=== PATIENT | male | born 1960 | race Caucasian/White ===

== ENCOUNTER 2020-02-24 08:26 | Outpatient (REF) | payer OTHER, SELFPAY | END 2020-02-24 08:27 | disposition home or self-care (01) | LOC: HO.LAB 08:26 | PROVIDERS: PCP Internal Medicine; Visit Provider Internal Medicine | DX: Z20.828 Contact with and (suspected) exposure to other viral communicable diseases (principal) | CPT/HCPCS: C9803; U0003 ==

== ENCOUNTER 2022-06-16 08:19 | Outpatient (REF) | payer OTHER, SELFPAY ==
--- NOTE | ~2022-06-16 | XR_ITS ---
EXAMINATION: XR KNEE, LEFT XR SHOULDER, RIGHT CLINICAL INDICATIONS: Pain. COMPARISON: None available. TECHNIQUE: Left knee 2 views. Right shoulder 4 views. FINDINGS: Left Knee: The tricompartment joint space is maintained normal. No bony erosive changes, loose bodies seen. There is mild anterior suprapatella enthesophyte. Right Shoulder: There is a small calcification at the insertion of the right rotator cuff likely calcific tendinitis. The glenohumeral joint space is maintained normal. There is mild reduction right AC joint space with inferior spurring. No visible acute fracture or dislocation seen. XR/XR knee LT 2V IMPRESSION: 1. Mild anterior-superior patellar enthesophyte. Otherwise, no acute process seen in left knee. 2. Suspect rotator cuff tendinitis with mild degenerative changes right AC joint. No acute fracture or dislocation seen.
--- NOTE | ~2022-06-16 | XR_ITS ---
EXAMINATION: XR KNEE, LEFT XR SHOULDER, RIGHT CLINICAL INDICATIONS: Pain. COMPARISON: None available. TECHNIQUE: Left knee 2 views. Right shoulder 4 views. FINDINGS: Left Knee: The tricompartment joint space is maintained normal. No bony erosive changes, loose bodies seen. There is mild anterior suprapatella enthesophyte. Right Shoulder: There is a small calcification at the insertion of the right rotator cuff likely calcific tendinitis. The glenohumeral joint space is maintained normal. There is mild reduction right AC joint space with inferior spurring. No visible acute fracture or dislocation seen. XR/XR shoulder RT min 2V IMPRESSION: 1. Mild anterior-superior patellar enthesophyte. Otherwise, no acute process seen in left knee. 2. Suspect rotator cuff tendinitis with mild degenerative changes right AC joint. No acute fracture or dislocation seen.
[2022-06-16 11:33] LABS: MANUAL DIFF FLAG NO
[2022-06-16 11:50] LABS: Basophils Percent Auto 0.8 % (0-2); Eosinophils Absolute Auto 0.1 X10*3/uL (0.0-0.4); Eosinophils Percent Auto 3.4 % (0-4); Hematocrit 41.7 % (42.0-52.0); Hemoglobin 13.9 g/dl (14.0-18.0); Lymphocytes Absolute Auto 1.4 X10*3/uL (1.2-4.9); Mean Corpuscular HGB Conc 33.3 g/dl (31.0-36.0); Mean Corpuscular Hemoglobin 31.7 pg (27.0-33.0); Monocytes Absolute Auto 0.4 X10*3/uL (0.1-1.2); Monocytes Percent Auto 10.3 % (2-11); Neutrophils Absolute Auto 1.9 x10*3/uL (2.0-8.3); Neutrophils Percent Auto 48.5 % (45-73); Platelet Count 163 X10*3/uL (160-400); Red Blood Count 4.39 X10*6/uL (4.60-5.80); Red Cell Distribution Width 12.9 % (11.0-16.0); White Blood Count 3.9 X10*3/uL (4.8-10.8)
[2022-06-16 11:55] LABS: Appearance Urine Clear; Color Urine Yellow; Glucose Urine UA Negative (Negative); Leukocyte Esterase Urine Negative (Negative); Nitrite Urine Negative (Negative); PH 6.5 (5.0-9.0); Specific Gravity - Urine 1.015 (1.005-1.025); Urine Blood Negative (Negative); Urine Ketones Negative (Negative); Urine Protein Negative (Neg-Trace)
[2022-06-16 12:12] LABS: Alanine Aminotransferase 24 U/L (0-40); Albumin Level 4.2 g/dL (3.5-5.0); Alkaline Phosphatase 56 U/L (39-117); Anion Gap 11 (12-20); Aspartate Amino Transferase 29 U/L (5-37); Bilirubin Total 0.7 mg/dL (0.0-1.0); Blood Urea Nitrogen 14 mg/dL (9-16); Calcium 9.3 mg/dL (8.4-10.2); Carbon Dioxide 29 mmol/L (22-29); Chloride 105 mmol/L (96-108); Cholesterol 299 mg/dL; Estimated Glomerular Filt Rate > 60; Glucose Fasting 102 mg/dL (60-99); HDL Cholesterol 64 mg/dL; LDL Cholesterol Calculated 208 mg/dl; Potassium 4.3 mmol/L (3.3-5.1); Sodium 141 mmol/L (135-145); Total Protein 7.1 g/dL (6.5-8.0); Triglycerides 137 mg/dL
[2022-06-16 12:29] LABS: Prostate Specific Antigen Scr 0.62 ng/mL (<0.05-4.0); TSH reflex Free T4 1.32 uIU/mL (0.32-4.0)
== END 2022-06-16 08:20 | disposition home or self-care (01) ==
LOC: HO.HMGCX 08:19
PROVIDERS: PCP Nurse Practitioner Family; Visit Provider Nurse Practitioner Family
DX: Z00.00 Encounter for general adult medical examination without abnormal findings (principal); D64.9 Anemia, unspecified; M25.511 Pain in right shoulder; M25.562 Pain in left knee; Z12.5 Encounter for screening for malignant neoplasm of prostate; E78.5 Hyperlipidemia, unspecified
CPT/HCPCS: 36415; 73030; 73560; 80053; 80061; 81003; 84153; 84443; 85025

== ENCOUNTER 2022-08-04 07:05 | Outpatient (REF) | payer OTHER, SELFPAY ==
[2022-08-04 11:12] LABS: MANUAL DIFF FLAG NO
[2022-08-04 11:33] LABS: Basophils Percent Auto 0.7 % (0-2); Eosinophils Absolute Auto 0.2 X10*3/uL (0.0-0.4); Eosinophils Percent Auto 3.6 % (0-4); Hematocrit 42.3 % (42.0-52.0); Imm Gran Abs Auto 0.01 X10*3/uL (0.00-0.03); Imm Gran Pct Auto 0.2 % (0.0-0.4); Immature Retic Fraction 9.9 % (2.3-13.4); Lymphocytes Absolute Auto 1.5 X10*3/uL (1.2-4.9); Lymphocytes Percent Auto 37.1 % (20-40); Mean Corpuscular HGB Conc 33.1 g/dl (31.0-36.0); Mean Corpuscular Hemoglobin 31.4 pg (27.0-33.0); Mean Corpuscular Volume 94.8 fL (80.0-98.0); Monocytes Absolute Auto 0.5 X10*3/uL (0.1-1.2); Monocytes Percent Auto 11.2 % (2-11); Neutrophils Absolute Auto 1.9 x10*3/uL (2.0-8.3); Neutrophils Percent Auto 47.2 % (45-73); Platelet Count 169 X10*3/uL (160-400); Red Blood Count 4.46 X10*6/uL (4.60-5.80); Red Cell Distribution Width 12.5 % (11.0-16.0); Retic HGB Equivalent 34.6 pg (30.0-35.0); Reticulocyte Percent 1.2 % (0.5-1.8); Reticulocytes Absolute 0.052 X10*6/uL (0.026-0.095); White Blood Count 4.1 X10*3/uL (4.8-10.8)
[2022-08-04 11:44] LABS: Alanine Aminotransferase 26 U/L (0-40); Albumin Level 4.4 g/dL (3.5-5.0); Alkaline Phosphatase 58 U/L (39-117); Anion Gap 12 (12-20); Aspartate Amino Transferase 29 U/L (5-37); Bilirubin Total 0.8 mg/dL (0.0-1.0); Blood Urea Nitrogen 16 mg/dL (9-16); Calcium 9.7 mg/dL (8.4-10.2); Carbon Dioxide 29 mmol/L (22-29); Chloride 104 mmol/L (96-108); Cholesterol 253 mg/dL; Estimated Glomerular Filt Rate > 60; Glucose Fasting 101 mg/dL (60-99); HDL Cholesterol 56 mg/dL; Iron 123 mcg/dL (45-160); LDL Cholesterol Calculated 173 mg/dl; Percent Iron Saturation 41 % (15-50); Potassium 4.1 mmol/L (3.3-5.1); Sodium 141 mmol/L (135-145); Total Iron Binding Capacity 303 mcg/dL (228-428); Total Protein 7.4 g/dL (6.5-8.0); Triglycerides 124 mg/dL; Unsaturated Iron Binding 180 ug/dL
[2022-08-04 12:13] LABS: Ferritin 200 ng/mL (20-250); Folate 11.3 ng/mL (> or = 4.0); Vitamin B12 656 pg/mL (200-900)
[2022-08-04 12:58] LABS: FIT Int Ctl YES; FIT1 NEGATIVE (NEGATIVE); FIT2 NEGATIVE (NEGATIVE)
[2022-08-10 18:39] LABS: Lyme Abs Screen <0.90 index
== END 2022-08-04 07:06 | disposition home or self-care (01) ==
LOC: HO.HMGCLDS 07:05
PROVIDERS: PCP Nurse Practitioner Family; Visit Provider Nurse Practitioner Family
DX: E78.5 Hyperlipidemia, unspecified (principal); D64.9 Anemia, unspecified
CPT/HCPCS: 36415; 80053; 80061; 82274; 82607; 82728; 82746; 83540; 85025; 85045; 86617; 86618

== ENCOUNTER 2022-09-22 13:53 | Outpatient (AMB) | payer OTHER, SELFPAY ==
[2022-09-22 14:03] VITALS: BP 154/90; PULSE 75; BMI 26.0
--- NOTE | 2022-09-22 14:03 | A.OFFVIS_ITS ---
Intake Vital Signs 09/22/22 14:03 09/22/22 14:32 Height 6 ft 4 in Weight 213 lb 13.574 oz BMI 26.0 BP 154/90 H 138/81 Blood Pressure Location Lt brachial Lt brachial Position Sitting Pulse 75 71 Intake Visit Reasons: Colonoscopy Screening Intake Note: Antelmo presents in the office as a new patient colonoscopy screening. CC: Clinical Academic Allergist Required: No Allergies meperidine [From DEMEROL] Allergy (Unknown, Unverified 09/22/22 14:03) VOMITING Reidiem-IDP-DmR Reductase Inhibitor Adverse Reaction (Intermediate, Verified 09/22/22 14:04) Muscle Pain SEASONAL ALLERGIES Allergy (Unknown, Uncoded 09/22/22 14:03) RUNNY NOSE/ITCHY EYES Medication List - Last Reconciled 09/22/22 by Chio Ignacio PA-C ezetimibe 10 mg PO DAILY losartan 50 mg PO DAILY rosuvastatin 5 mg PO .twice a week 30 days HPI HPI Comments History of Present Illness Details A 62 y/o male referred for screening colonoscopy- normal colonoscopy 10 years ago at [facility] Healthy, retired, stays active Appetite is good Bowels are normal No cardiac or respiratory issies No N/V/ D reflux, fever or chills PFSH Surgical History Hx of colonoscopy Social History Housing: House Patient Tobacco Use Status: Former Tobacco user Quit Date: 20 years ago Tobacco use type: Cigarette e-Cigarette/Vaping Use: Never Used Second Hand Smoke Exposure: No service: No Current occupational status: retired Cognitive needs: No Hearing needs: No Vision needs: No Review of Systems Const All systems reviewed & are unremarkable except as noted in HPI and below Card Denies chest pain and Denies dyspnea Resp Denies dyspnea GI Denies abdominal pain, Denies change in bowel habits, Denies heartburn, Denies diarrhea, Denies nausea and Denies vomiting Physical Exam Vital Signs: Last Vital Signs Pulse 71 09/22/22 14:32 BP 138/81 09/22/22 14:32 BMI result Body Mass Index 26.0 Const General: cooperative, healthy appearing, comfortable and no acute distress Resp Effort & Inspection: normal respiratory effort and able to speak in complete sentences Auscultation: clear to auscultation bilaterally, no rales, no rhonchi and no wheezes Cardio Rate: regular rate Rhythm: regular rhythm Heart sounds: S1 normal heart sound present and S2 normal heart sound present GI Palpation (GI): Soft to palpation and nontender Percussion: Yes normal to percussion Skin General skin exam: no rashes or lesions noted Extrem General: Yes full ROM Psych Appearance: grossly normal and well kempt Mental Status: mental status grossly normal Speech and movement: Normal speech and movement present and Clear speech present Affect: normal affect and Labile affect present Attitude: cooperative Thought process: Normal thought process present Thought content: Normal thought content present Insight: Good insight present (Psych) Judgement: Good judgement present (Psych) Assessment & Plan Assessment & Plan (1) Screening for colon cancer: Code(s): Z12.11 - Encounter for screening for malignant neoplasm of colon Plan Screening colonoscopy- MG prep Orders: Orders Colonoscopy - GI Use Only 09/22/22 Z12.11 - Encounter for screening for malignant neoplasm of colon Medications: New bisacodyl (Dulcolax (bisacodyl)) Take 4 tablets by mouth at 12:00pm the day before your procedure. 20 mg (4 x 5 mg) PO ONCE 1 day 4 tabs 0RF colonoscopy prep Z12.11 - Encounter for screening for malignant neoplasm of colon polyethylene glycol 3350 (Miralax) Take as directed by mouth the day before your procedure. 238 grams PO ONCE 1 day PRN 238 grams 0RF laxative effect Patient Instructions: Pleasant healthy 62 y/o male- due for screening colonoscopy Discussed procedure, rare risk ,need for escort due to anesthesia MiraLax Gatorade split prep literature given Encouraged to call questions or concerns Appreciate the opportunity cyst in the care of the PEG Coding Level of Care Code New Pt Level 3 (34627) Diagnoses Screening for colon cancer Z12.11 Time Spent (min) 30
[2022-09-22 14:32] VITALS: BP 138/81; PULSE 71
== END 2022-09-22 14:29 | disposition home or self-care (01) ==
PROVIDERS: PCP Nurse Practitioner Family; Visit Provider Physician Assistant
DX: Z01.818 Encounter for other preprocedural examination (principal); Z12.11 Encounter for screening for malignant neoplasm of colon
CPT/HCPCS: 99203

== ENCOUNTER → 2022-09-22 13:53 | Outpatient (BNVA) | payer OTHER, SELFPAY | PROVIDERS: PCP Nurse Practitioner Family; Visit Provider Physician Assistant ==

== ENCOUNTER 2022-10-12 07:58 | Outpatient (REF) | payer OTHER, SELFPAY ==
[2022-10-12 12:05] LABS: Alanine Aminotransferase 24 U/L (0-40); Albumin Level 4.4 g/dL (3.5-5.0); Alkaline Phosphatase 58 U/L (39-117); Anion Gap 14 (12-20); Aspartate Amino Transferase 30 U/L (5-37); Bilirubin Total 0.8 mg/dL (0.0-1.0); Blood Urea Nitrogen 18 mg/dL (9-16); Calcium 10.1 mg/dL (8.4-10.2); Carbon Dioxide 25 mmol/L (22-29); Chloride 105 mmol/L (96-108); Cholesterol 241 mg/dL; Estimated Glomerular Filt Rate > 60; Glucose Fasting 97 mg/dL (60-99); HDL Cholesterol 70 mg/dL; LDL Cholesterol Calculated 148 mg/dl; Potassium 4.1 mmol/L (3.3-5.1); Sodium 140 mmol/L (135-145); Total Protein 7.8 g/dL (6.5-8.0); Triglycerides 117 mg/dL
== END 2022-10-12 07:59 | disposition home or self-care (01) ==
LOC: HO.WFDLDS 07:58
PROVIDERS: Visit Provider Nurse Practitioner Family
DX: E78.5 Hyperlipidemia, unspecified (principal)
CPT/HCPCS: 36415; 80053; 80061

== ENCOUNTER 2022-10-17 09:52 | Outpatient (AMB) | payer OTHER, SELFPAY ==
[2022-10-17 09:56] VITALS: BP 142/88; PULSE 75; O2SAT 96; BMI 26.6
--- NOTE | 2022-10-17 09:56 | MHC.PC.OV ---
Vital Signs 10/17/22 09:56 Height 6 ft 4 in Weight 218 lb 4 oz BMI 26.6 BP 142/88 H Blood Pressure Location Rt brachial Position Sitting Pulse 75 Pulse Source Pulse Oximeter Pulse Oximetry (%) 96 Oxygen Delivery Method Room Air Intake Visit Reasons: Follow up on labs Allergies meperidine [From DEMEROL] Allergy (Unknown, Unverified 10/17/22 09:59) VOMITING Oqrzgfk-BUD-FoS Reductase Inhibitor Adverse Reaction (Intermediate, Verified 10/17/22 09:59) Muscle Pain SEASONAL ALLERGIES Allergy (Unknown, Uncoded 10/17/22 09:59) RUNNY NOSE/ITCHY EYES Medication List - Last Reconciled 10/17/22 by DIONNE Vicente- bisacodyl (Dulcolax (bisacodyl)) 20 mg (4 x 5 mg) PO ONCE 1 day ezetimibe 10 mg PO DAILY losartan 100 mg PO DAILY polyethylene glycol 3350 (Miralax) 238 grams PO ONCE PRN 1 day prazosin 1 mg PO BEDTIME rosuvastatin 5 mg PO .twice a week 30 days Tobacco use date assessed: 10/17/22 Dental Screening Dental Screen Date: 10/17/22 Did you have a dental visit in the last 12 months?: Yes Did you have a dental problem in the last 6 months where you did not have access to dental care?: No Was dental information given to patient?: Patient has dentist HPI Follow up on labs HPI Details HTN: Blood pressure is managed with losartan 50mg. Will increase to 100mg. Denies chest pain, shortness of breath, headache, dizziness, and blurred vision. Pt c/o bilat hand pain especially to base of thumbs. He reports pain with activity such as fishing or playing guitar. Will order xr's (? arthritis). Dyslipidemia: On rosuvastatin 5mg twice a week. Will have pt increase this to three times a week. Pt c/o insomnia. He has tried trazodone in the past which causes weird dreams. Will send prazosin 1mg. PFSH Surgical History Hx of colonoscopy Social History Housing: House Patient Tobacco Use Status: Former Tobacco user Quit Date: 20 years ago Tobacco use type: Cigarette e-Cigarette/Vaping Use: Never Used Second Hand Smoke Exposure: No service: No Current occupational status: retired Cognitive needs: No Hearing needs: No Vision needs: No Questionnaire Thrive Questionnaire Date Thrive assessed: 06/13/22 SALAS-7 AMB Questionnaire SALAS-7 Date SALAS - 7 assessed: 06/13/22 Source: Developed by Drs. Henrik Catherine, Tami Davies, Vimal Conti and colleagues, with an educational denny from [employer]. Review of Systems Const Reports as per HPI Physical exam (Primary Care) Vital Signs: Last Vital Signs Pulse 75 10/17/22 09:56 BP 142/88 H 10/17/22 09:56 Pulse Ox 96 10/17/22 09:56 Oxygen Delivery Method Room Air 10/17/22 09:56 BMI result Body Mass Index 26.6 Tobacco/Smoking Status: Tobacco use Status Tobacco use date assessed 10/17/22 10/17/22 10:01 Patient Tobacco Use Status Former Tobacco user 10/17/22 09:56 Tobacco use type Cigarette 10/17/22 09:56 e-Cigarette/Vaping Use Never Used 10/17/22 09:56 Thrive Assessment: Date of Thrive Assessment Date Thrive assessed 06/13/22 10/17/22 09:56 Const General: cooperative Orientation/consciousness: patient oriented x3 Resp Effort & Inspection: normal respiratory effort Auscultation: clear to auscultation bilaterally Cardio Rate: regular rate Rhythm: regular rhythm Heart sounds: S1 normal heart sound present and S2 normal heart sound present Neuro General: patient oriented x3 Extrem Other: able to flex and extend bilat thumbs with minimal discomfort to base of thumbs Psych Appearance: grossly normal Mental Status: mental status grossly normal Speech and movement: Normal speech and movement present Affect: normal affect Attitude: cooperative Thought process: Normal thought process present Thought content: Normal thought content present Insight: Good insight present (Psych) Judgement: Good judgement present (Psych) Assessment and Plan Assessment & Plan (1) Bilateral thumb pain: Code(s): M79.644 - Pain in right finger(s); M79.645 - Pain in left finger(s) Plan: XRs ordered (2) Dyslipidemia: Code(s): E78.5 - Hyperlipidemia, unspecified Plan: Labs ordered going up to three times a week statin use from twice a week (3) Insomnia: Code(s): G47.00 - Insomnia, unspecified (4) HTN (hypertension): Code(s): I10 - Essential (primary) hypertension Plan The patient agreed to the use of a medical detail representative for this encounter. Scribed for DIONNE Cid- by Claritza Durbin medical detail representative, on 10/17/2022 at 10:20 EST. Orders: Orders Complete Blood Count Auto Diff Today E78.5 - Hyperlipidemia, unspecified Comprehensive [place]. Panel Fast Today E78.5 - Hyperlipidemia, unspecified Lipid Panel Today E78.5 - Hyperlipidemia, unspecified Medications: New prazosin 1 mg PO BEDTIME 30 caps 2RF Changed From losartan 50 mg PO DAILY 30 tabs 3RF To losartan 100 mg PO DAILY 30 tabs 3RF From rosuvastatin 5 mg PO .twice a week 30 days 10 tabs 3RF To rosuvastatin 5 mg orally three times a week; 30 days 13 tabs 3RF Coding Level of Care Code Est Pt Level 3 (33866) Diagnoses Bilateral thumb pain M79.644; M79.645 Dyslipidemia E78.5 Insomnia G47.00 HTN (hypertension) I10
== END 2022-10-17 11:25 | disposition home or self-care (01) ==
PROVIDERS: PCP Nurse Practitioner Family; Visit Provider Nurse Practitioner Family
DX: M79.644 Pain in right finger(s) (principal); M79.645 Pain in left finger(s); E78.5 Hyperlipidemia, unspecified; I10 Essential (primary) hypertension; G47.00 Insomnia, unspecified
CPT/HCPCS: 99213

== ENCOUNTER 2022-10-17 10:29 | Outpatient (REF) | payer OTHER, SELFPAY ==
--- NOTE | ~2022-10-17 | XR_ITS ---
EXAMINATION: XR HAND RIGHT XR HAND LEFT CLINICAL INFORMATION: Pain COMPARISON: None TECHNIQUE: Right hand, 3 views Left hand, 3 views FINDINGS: Right hand: No fracture, subluxation or focal soft tissue swelling. The joint spaces of the wrist are maintained. Small osteophytes are present the mildly degenerated first carpometacarpal joint. The metacarpophalangeal joints are unremarkable. Small osteophytes are present at distal interphalangeal joints. No erosions or periostitis. Left hand: No fracture, subluxation or focal soft tissue swelling. The joint spaces of the wrist are maintained. Small osteophytes are noted at mildly degenerated first carpometacarpal joint. The metacarpophalangeal joints are normal. The interphalangeal joint spaces are maintained. There appears to be negligible osteophyte formation at second and third DIP joints. No erosions or periostitis. XR/XR hand RT min 3V IMPRESSION: * No acute osseous injury in either hand or wrist. 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 * No evidence of an inflammatory arthropathy.
--- NOTE | ~2022-10-17 | XR_ITS ---
EXAMINATION: XR HAND RIGHT XR HAND LEFT CLINICAL INFORMATION: Pain COMPARISON: None TECHNIQUE: Right hand, 3 views Left hand, 3 views FINDINGS: Right hand: No fracture, subluxation or focal soft tissue swelling. The joint spaces of the wrist are maintained. Small osteophytes are present the mildly degenerated first carpometacarpal joint. The metacarpophalangeal joints are unremarkable. Small osteophytes are present at distal interphalangeal joints. No erosions or periostitis. Left hand: No fracture, subluxation or focal soft tissue swelling. The joint spaces of the wrist are maintained. Small osteophytes are noted at mildly degenerated first carpometacarpal joint. The metacarpophalangeal joints are normal. The interphalangeal joint spaces are maintained. There appears to be negligible osteophyte formation at second and third DIP joints. No erosions or periostitis. XR/XR hand LT min 3V IMPRESSION: * No acute osseous injury in either hand or wrist. 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 * No evidence of an inflammatory arthropathy.
== END 2022-10-17 10:30 | disposition home or self-care (01) ==
LOC: HO.HMGCX 10:29
PROVIDERS: PCP Nurse Practitioner Family; Visit Provider Nurse Practitioner Family
DX: E78.5 Hyperlipidemia, unspecified (principal); M79.644 Pain in right finger(s); M79.645 Pain in left finger(s)
CPT/HCPCS: 73130

== ENCOUNTER 2022-12-07 08:01 | Outpatient (REF) | payer OTHER, SELFPAY ==
[2022-12-07 08:14] LABS: MANUAL DIFF FLAG NO
[2022-12-07 08:46] LABS: Basophils Percent Auto 0.5 % (0-2); Eosinophils Absolute Auto 0.1 X10*3/uL (0.0-0.4); Eosinophils Percent Auto 3.2 % (0-4); Hematocrit 44.6 % (42.0-52.0); Hemoglobin 14.4 g/dl (14.0-18.0); Imm Gran Abs Auto 0.01 X10*3/uL (0.00-0.03); Imm Gran Pct Auto 0.2 % (0.0-0.4); Lymphocytes Absolute Auto 1.7 X10*3/uL (1.2-4.9); Lymphocytes Percent Auto 38.2 % (20-40); Mean Corpuscular HGB Conc 32.3 g/dl (31.0-36.0); Mean Corpuscular Hemoglobin 30.8 pg (27.0-33.0); Mean Corpuscular Volume 95.3 fL (80.0-98.0); Mean Platelet Volume 11.4 fL (9.4-12.4); Monocytes Absolute Auto 0.6 X10*3/uL (0.1-1.2); Monocytes Percent Auto 12.7 % (2-11); Neutrophils Percent Auto 45.2 % (45-73); Platelet Count 196 X10*3/uL (160-400); Red Blood Count 4.68 X10*6/uL (4.60-5.80); Red Cell Distribution Width 12.6 % (11.0-16.0); White Blood Count 4.4 X10*3/uL (4.8-10.8)
[2022-12-07 09:15] LABS: Alanine Aminotransferase 26 U/L (0-40); Albumin Level 4.5 g/dL (3.5-5.0); Alkaline Phosphatase 62 U/L (39-117); Anion Gap 11 (12-20); Aspartate Amino Transferase 34 U/L (5-37); Bilirubin Total 0.7 mg/dL (0.0-1.0); Blood Urea Nitrogen 18 mg/dL (9-16); Carbon Dioxide 30 mmol/L (22-29); Chloride 103 mmol/L (96-108); Cholesterol 290 mg/dL (<200); Estimated Glomerular Filt Rate > 60; Glucose Fasting 99 mg/dL (60-99); HDL Cholesterol 66 mg/dL (>40); LDL Cholesterol Calculated 204 mg/dL (<100); Potassium 4.5 mmol/L (3.3-5.1); Sodium 139 mmol/L (135-145); Total Protein 7.9 g/dL (6.5-8.0); Triglycerides 103 mg/dL (<150)
== END 2022-12-07 08:02 | disposition home or self-care (01) ==
LOC: HO.LAB 08:01
PROVIDERS: PCP Nurse Practitioner Family; Visit Provider Nurse Practitioner Family
DX: E78.5 Hyperlipidemia, unspecified (principal)
CPT/HCPCS: 36415; 80053; 80061; 85025

== ENCOUNTER 2022-12-13 09:23 | Outpatient (AMB) | payer OTHER, SELFPAY ==
--- NOTE | 2022-12-13 09:25 | MHC.PC.OV ---
Vital Signs 12/13/22 09:26 Height 6 ft 4 in Weight 218 lb BMI 26.5 BP 134/90 H Blood Pressure Location Rt brachial Position Sitting Pulse 78 Pulse Source Pulse Oximeter Pulse Oximetry (%) 94 Oxygen Delivery Method Room Air Intake Visit Reasons: 6m follow up Allergies meperidine [From DEMEROL] Allergy (Unknown, Unverified 12/13/22 09:28) VOMITING Rfnjugc-DJB-RuQ Reductase Inhibitor Adverse Reaction (Intermediate, Verified 12/13/22 09:28) Muscle Pain SEASONAL ALLERGIES Allergy (Unknown, Uncoded 12/13/22 09:28) RUNNY NOSE/ITCHY EYES Medication List - Last Reconciled 12/13/22 by Prabhu Knutson, [facility] DIRECTOR- bisacodyl (Dulcolax (bisacodyl)) 20 mg (4 x 5 mg) PO ONCE 1 day evolocumab (Repatha SureClick) 140 mg subcut Q2W losartan-hydrochlorothiazide 100-12.5 mg 1 tab PO DAILY 90 days polyethylene glycol 3350 (Miralax) 238 grams PO ONCE PRN 1 day Tobacco use date assessed: 12/13/22 Dental Screening Dental Screen Date: 12/13/22 Did you have a dental visit in the last 12 months?: Yes Did you have a dental problem in the last 6 months where you did not have access to dental care?: No Was dental information given to patient?: Patient has dentist HPI 6m follow up HPI Details HTN: Blood pressure is managed with losartan 100mg. Pt reports that his blood pressure at home has been averaging in the 130s/90s. Will add hydrochlorothiazide 12.5mg (switching to combo med). Denies chest pain, shortness of breath, headache, dizziness, and blurred vision. Pt reports that he stopped his rosuvastatin because it was causing worsened hand pain. Will send repatha. Pt reports cold feet and decreased healing of his lower extremities. Denies any signs of claudication. Will order arterial testing. PFSH Surgical History Hx of colonoscopy Social History Housing: House Patient Tobacco Use Status: Former Tobacco user Quit Date: 20 years ago Tobacco use type: Cigarette e-Cigarette/Vaping Use: Never Used Second Hand Smoke Exposure: No service: No Current occupational status: retired Cognitive needs: No Hearing needs: No Vision needs: No Questionnaire Thrive Questionnaire Date Thrive assessed: 06/13/22 SALAS-7 AMB Questionnaire SALAS-7 Date SALAS - 7 assessed: 06/13/22 Source: Developed by Drs. Henrik Catherine, Tami Davies, Vimal Conti and colleagues, with an educational denny from [employer]. Review of Systems Const Reports as per HPI Physical exam (Primary Care) Vital Signs: Last Vital Signs Pulse 78 12/13/22 09:26 BP 134/90 H 12/13/22 09:26 Pulse Ox 94 12/13/22 09:26 Oxygen Delivery Method Room Air 12/13/22 09:26 BMI result Body Mass Index 26.5 Tobacco/Smoking Status: Tobacco use Status Tobacco use date assessed 12/13/22 12/13/22 09:29 Patient Tobacco Use Status Former Tobacco user 12/13/22 09:26 Tobacco use type Cigarette 12/13/22 09:26 e-Cigarette/Vaping Use Never Used 12/13/22 09:26 Thrive Assessment: Date of Thrive Assessment Date Thrive assessed 06/13/22 12/13/22 09:26 Const General: cooperative Orientation/consciousness: patient oriented x3 Resp Effort & Inspection: normal respiratory effort Auscultation: clear to auscultation bilaterally Cardio Rate: regular rate Rhythm: regular rhythm Heart sounds: S1 normal heart sound present and S2 normal heart sound present Bruits: no carotid bruits Neuro General: patient oriented x3 Extrem Other: very weak dorsalis pedis pulses bilat, cap refill BLE 3 seconds Psych Appearance: grossly normal Mental Status: mental status grossly normal Speech and movement: Normal speech and movement present Affect: normal affect Attitude: cooperative Thought process: Normal thought process present Thought content: Normal thought content present Insight: Good insight present (Psych) Judgement: Good judgement present (Psych) Assessment and Plan Assessment & Plan (1) Weak pulse: Code(s): R09.89 - Other specified symptoms and signs involving the circulatory and respiratory systems Plan: Arterial US ordered (2) Dyslipidemia: Code(s): E78.5 - Hyperlipidemia, unspecified Plan The patient agreed to the use of a medical grade shoemaker for this encounter. Scribed for DIONNE Cid-LORRIE by Claritza Durbin medical grade shoemaker, on 12/13/2022 at 09:50 EST Orders: Orders US arterial duplex LE BI Today R09.89 - Other specified symptoms and signs involving the circulatory and respiratory systems Medications: New losartan-hydrochlorothiazide 100-12.5 mg 1 tab PO DAILY 90 tabs 0RF 90 days evolocumab (Repatha SureClick) 140 mg subcut Q2W 2 mL 1RF Discontinued losartan Discontinued Reason: Ancillary Entered New Order 100 mg PO DAILY 90 tabs 1RF Coding Level of Care Code Est Pt Level 3 (10596) Diagnoses Weak pulse R09.89 Dyslipidemia E78.5
[2022-12-13 09:26] VITALS: BP 134/90; PULSE 78; O2SAT 94; BMI 26.5
== END 2022-12-13 10:10 | disposition home or self-care (01) ==
PROVIDERS: Visit Provider Nurse Practitioner Family
DX: R09.89 Other specified symptoms and signs involving the circulatory and respiratory systems (principal); E78.5 Hyperlipidemia, unspecified
CPT/HCPCS: 99213

== ENCOUNTER 2023-02-21 14:16 | Outpatient (REF) | payer OTHER, SELFPAY ==
--- NOTE | ~2023-02-21 | US_ITS ---
EXAMINATION: NONINVASIVE ASSESSMENT OF THE ARTERIES OF BOTH LOWER EXTREMITIES INCLUDING BILATERAL LOWER EXTREMITY DUPLEX. CLINICAL INFORMATION: Symptoms and signs involving the circulatory system COMPARISON: None TECHNIQUE: duplex Doppler techniques with wave form analysis and measurement of velocities in the common femoral, profunda femoral, superficial femoral, popliteal, tibial and peroneal arteries. The study was performed only at rest. FINDINGS: There is bilateral atherosclerotic disease. Multiple bilateral calf collaterals. RIGHT LEG Common femoral artery: 64 cm/s, Multiphasic Profunda femoris artery: 67 cm/s, Multiphasic Superficial femoral artery (proximal): 108 cm/s, Multiphasic Superficial femoral artery (mid): 105 cm/s, Multiphasic Superficial femoral artery (distal): 74 cm/s, Multiphasic Proximal Popliteal artery: 86 cm/s, Multiphasic Mid posterior tibial artery: 103 cm/s, Multiphasic LEFT LEG: Common femoral artery: 188 cm/s, Multiphasic Profunda femoris artery: 71 cm/s, Multiphasic Superficial femoral artery (proximal): 121 cm/s, Multiphasic Superficial femoral artery (mid): 111 cm/s, Multiphasic Superficial femoral artery (distal): 106 cm/s, Multiphasic Proximal Popliteal artery: 98 cm/s, Multiphasic Mid posterior tibial artery: 115 cm/s, Multiphasic US/US arterial duplex LE BI IMPRESSION: No hemodynamically significant stenosis in the bilateral lower extremities, however there is atherosclerotic disease and development of collaterals in the bilateral calves.
== END 2023-02-21 14:17 | disposition home or self-care (01) ==
LOC: HO.US 14:16
PROVIDERS: PCP Nurse Practitioner Family; Visit Provider Nurse Practitioner Family
DX: R09.89 Other specified symptoms and signs involving the circulatory and respiratory systems (principal)
CPT/HCPCS: 93925

== ENCOUNTER 2023-03-29 13:05 | Outpatient (AMB) | payer OTHER, SELFPAY ==
[2023-03-29 13:09] VITALS: BP 112/72; PULSE 71; BMI 28.4
--- NOTE | 2023-03-29 13:09 | A.OFFVIS_ITS ---
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 Intake Note: New patient hypercholesterolemia was unable to get repatha and is allergic to statins Shipping & Receiving Lead Required: No Allergies meperidine [From DEMEROL] Allergy (Unknown, Unverified 12/13/22 09:28) VOMITING Iggniiw-ZWI-GwF Reductase Inhibitor Adverse Reaction (Intermediate, Verified 12/13/22 09:28) Muscle Pain SEASONAL ALLERGIES Allergy (Unknown, Uncoded 12/13/22 09:28) RUNNY NOSE/ITCHY EYES Medication List - Last Reconciled 03/29/23 by Jason Barajas MD losartan-hydrochlorothiazide 100-12.5 mg 1 tab PO DAILY 90 days HPI HPI Comments History of Present Illness Details Thank you for referring Gabe in cardiology consultation today for management of his hyperlipidemia. He has a pleasant 62-year-old male who has longstanding history of hyperlipidemia and intolerance to statin. He said he is tried multiple statins in the past all of them causing muscle pains leading to limitation quality of life and discontinuation of statin therapy as lead to improvement in symptoms. His last LDL is at 204 mg/dL. Recently had a peripheral vascular ultrasound for poor distal pulses which showed presence of atherosclerosis without any significant obstructive lesion. He comes in for follow-up and discussion for management of his hyperlipidemia. On EKG today he was noted to have isolated PVCs. He said he has had symptoms of palpitation but he notice them. He said he is very active and goes outdoor activity with skiing and hunting and has no exertional chest pain or shortness of breath. He has history of hypertension which is currently treated with current medications. Blood pressure is well optimized. [facility] Medical History Arterial atherosclerosis Surgical History Hx of colonoscopy Social History Housing: House Patient Tobacco Use Status: Former Tobacco user Quit Date: 20 years ago Tobacco use type: Cigarette e-Cigarette/Vaping Use: Never Used Second Hand Smoke Exposure: No service: No Current occupational status: retired Cognitive needs: No Hearing needs: No Vision needs: No Review of Systems Const Denies chills, Denies daytime sleepiness, Denies fatigue, Denies fever(s), Denies frequent falls, Denies poor appetite, Denies snoring, Denies stops breathing during sleep, Denies weakness, Denies weight gain and Denies weight loss Eyes Denies loss of vision ENT Denies dizziness and Denies hearing loss Card Denies chest pain, Denies claudication, Denies leg edema, Denies lightheadedness, Denies palpitations, Denies dyspnea, Denies dyspnea on exertion and Denies orthopnea Resp Denies cough, Denies excessive phlegm production, Denies dyspnea, Denies dyspnea on exertion, Denies snoring and Denies wheezing GI Denies abdominal pain, Denies hematochezia, Denies change in bowel habits, Denies nausea and Denies vomiting Denies dysuria and Denies urinary frequency Musc Denies arthralgias, Denies muscle weakness, Denies numbness and Denies other (frequent falls) Skin/Breast Denies nail changes and Denies rash Neuro Denies Abnormal speech present, Denies dizziness, Denies frequent falls, Denies loss of vision, Denies memory loss, Denies numbness and Denies weakness Psych Denies depression and Denies memory loss Endo Denies fatigue and Denies palpitations Arnold/Lymph Reports easy bruising and Reports other (anemia) Aller/Immun Denies wheezing Physical Exam Vital Signs: Last Vital Signs Pulse 71 03/29/23 13:09 BP 112/72 03/29/23 13:09 BMI result Body Mass Index 28.4 Const General: cooperative, comfortable, no acute distress, alert, awake, Physically active and well groomed Nutritional Appearance: overweight Orientation/consciousness: patient oriented x3 Limitations: no limitations HEENT Head: Yes normocephalic and Yes atraumatic Neck Neck: Yes trachea midline, Yes supple and Yes no JVD Resp Effort & Inspection: normal respiratory effort Auscultation: clear to auscultation bilaterally Cardio Jugular venous distension: no JVD Palpation: normal PMI Rate: regular rate Rhythm: abnormal rhythm with ectopic beats Heart sounds: S1 normal heart sound present, S2 normal heart sound present, no click, no gallops, no murmurs and no rubs GI Auscultation: normal bowel sounds Skin General skin exam: no rashes or lesions noted Neuro General: patient oriented x3 and no focal motor deficits Speech: No Abnormal speech present Extrem General: Yes no clubbing, cyanosis or edema Psych Appearance: grossly normal Office Procedures EKG Details: EKG shows normal sinus rhythm with frequent PVCs, appear to be unifocal with right bundle morphology consistent with LV origin 54932-[id number], Complete Assessment & Plan Assessment & Plan (1) Hyperlipidemia: Code(s): E78.5 - Hyperlipidemia, unspecified Plan: Patient marked hyperlipidemia with overall atherosclerotic 10 year risk of 9.9% but recent peripheral vascular ultrasound already demonstrates presence of atherosclerosis. Therefore is treatment is for secondary prevention of cardiovascular and cerebrovascular events. This was discussed with him. His LDL is markedly elevated and he has not tolerated statin therapy in the past. Her requires intense lipid modification with greater than 55% LDL reduction to reduce his future risk of cardiovascular event and therefore I think will benefit from PCSK9 inhibitor therapy. I have therefore taken the liberty to prescribe him Repatha to be injected every 2 weeks. Follow-up lipid panel in 6 weeks time. Ideally target goal LDL less than 70 mg/dL. This was discussed with him. I do not think he needs any further risk stratification testing such as coronary calcium score as he requires more aggressive lipid modification already based on the data. (2) PVC (premature ventricular contraction): Code(s): I49.3 - Ventricular premature depolarization Plan: Presence of frequent PVCs with symptoms. He said this has been present for some time. He does not have any overt exertional symptoms although given his risk factors including hypertension, age, marked hyperlipidemia, presence of peripheral vascular atherosclerosis as well as family history should undergo evaluation for structural heart disease. Would suggest exercise treadmill stress test to evaluate for myocardial ischemia. Also suggest an echocardiogram to evaluate for LV systolic function to evaluate for other structural heart abnormalities. If within normal limits PVCs by themselves do not need any treatment unless they are causing him to have a lot of symptoms. Will follow up in the clinic in 6 weeks time, sooner p.r.n.. Thank you for allowing me to partake in his care Orders: Orders Lipid Panel 6 Weeks E78.5 - Hyperlipidemia, unspecified, I25.10 - Atherosclerotic heart disease of [place] coronary artery without angina pectoris CA echo transthoracic complete Today I49.3 - Ventricular premature depolarization CA stress test Today I49.3 - Ventricular premature depolarization Medications: New evolocumab (Repatha SureClick) 140 mg subcut Q2W 2 mL 5RF E78.5 - Hyperlipidemia, unspecified Coding Level of Care Code New Pt Level 4 (33382) Diagnoses Hyperlipidemia E78.5 PVC (premature ventricular contraction) I49.3 CPT Codes EKG - CPT: 70569-[id number], Complete ([id number])
== END 2023-03-29 13:46 | disposition home or self-care (01) ==
PROVIDERS: PCP Nurse Practitioner Family; Visit Provider Internal Medicine Cardiovascular Disease
DX: E78.5 Hyperlipidemia, unspecified (principal); I49.3 Ventricular premature depolarization
CPT/HCPCS: 93010; 99204

== ENCOUNTER → 2023-03-29 13:05 | Outpatient (BNVA) | payer OTHER, SELFPAY | PROVIDERS: PCP Nurse Practitioner Family; Visit Provider Internal Medicine Cardiovascular Disease | DX: E78.5 Hyperlipidemia, unspecified (principal); I49.3 Ventricular premature depolarization | CPT/HCPCS: 93005 ==

== ENCOUNTER → 2023-05-02 07:51 | Outpatient (REF) | payer OTHER, SELFPAY ==
--- NOTE | 2023-05-02 08:00 | CA_ITS ---
Transthoracic Echocardiogram Patient (Last, First, Middle): Antelmo Calabrese William Gender: Male Date of : 1960 Age: 63 Procedure Date: 05/02/2023 Procedure Type: Transthoracic Echocardiogram Location: OP Height: 193.04 cm Weight: 100.7 kg BSA: 2.32 m2 Heart Rate: bpm BP: 130 / 88 mmHg Door Technician: TO Referring MD: Jason Barajas MD Firmware Developer: Jason Barajas MD Symptoms: I49.3 - Ventricular premature depolarization Study Quality: Adequate ECG Rhythm: Sinus Conclusions: - 1. Normal LV ejection fraction of 60 65% with mild LVH with grade 1 diastolic dysfunction 2. Normal cardiac valve with Doppler 3. Mildly dilated ascending aorta 3.7 cm. 4. No pericardial effusion Findings Left Ventricle Normal left ventricular size and systolic function. There is mildly increased left ventricular wall thickness. The visually estimated ejection fraction is between 60-65%. Spectral Doppler is indicative of an impaired relaxation filling pattern. E/E prime ratio is <8, consistent with normal filling pressures. Evidence suggests grade I (mild) diastolic dysfunction. Peal GLS is -16.2%, which is mildly reduced. Right Ventricle Normal right ventricular cavity size and systolic function. Atria The left atrium is normal in size. There is no evidence of interatrial shunt. The right atrium is normal in size. Aortic Valve There is mild calcification of the aortic valve. There is mild thickening of the aortic valve. There is no aortic valve stenosis. There is no aortic valve regurgitation. Mitral Valve There is mild anterior and posterior mitral leaflet thickening. There is trace mitral valve regurgitation. There is no mitral valve stenosis. Pulmonic Valve The pulmonic valve is likely normal. There is trace pulmonic valve regurgitation. Tricuspid Valve Normal tricuspid valve structure. Tricuspid regurgitation envelope is inadequate for calculation of right ventricular systolic pressure. Normal right atrial pressure. Great Vessels The pulmonary artery was not well visualized. There is mild dilatation of the ascending aorta measuring 3.70 cm. Venous The inferior vena cava is mildly dilated and collapses greater than 50% with inspiration. Pericardium/Pleural There is no evidence of pericardial effusion. Prior Study Comparison No prior study available for comparison. Measurements 2D Linear Measurements IVSd: 1.27 0.6-0.9/0.6-1.0 cm LVIDd: 5.41 3.9-5.3/4.2-5.9 cm LVIDd Index: 2.33 2.4-3.2/2.2-3.1 cm/m2 LVIDs: 3.40 2.0-3.6 cm LVPWd: 1.14 0.7-1.1 cm LA Diam: 3.60 2.7-3.8/3.0-4.0 cm LAIDs Index: 1.55 1.5-2.3 cm/m2 LV Mass: 332.67 67-162/88-224 g LV Mass Index: 143.39 43-95/49-115 g/m2 LVOT Diam: 2.50 3.0+(-)1.3 cm 2D Systolic Function EF 4C: 61.10 >55% EF 2C: 61.20 >55% EF BiP: 60.30 >55% Mitral Valve MV Pk E: 0.42 MV PK A: 0.42 MV Decel Time: 301.00 E/A: 1.00 E'Lateral: 7.29 E'Medial: 5.00 E/E' Med: 8.50 E/E' Lat: 5.80 PHT: 79.00 MVA PHT: 2.78 Decel Wallace: 1.62 Aortic Valve AoV Pk Uriel: 1.11 AoV Mn Uriel: 0.78 AoV VTI: 0.28 AoV Pk Grad: 5.00 Aov Mn Grad: 3.00 TRINITY Cont.VTI: 3.37 LVOT LVOT Pk Uriel: 0.74 LVOT Mn Uriel: 0.46 LVOT VTI: 0.19 LVOT Pk Grad: 2.00 LVOT Mn Grad: 1.00 LVOT Diam: 2.50 LVOT Area: 4.91 Diastolic Function MV Pk E: 0.42 MV Pk A: 0.42 E/A: 1.00 E'Medial: 5.00 E/E' Med: 8.50 E' Laterial: 7.29 E/E' Lat: 5.80 Right Ventricle TAPSE (mm): 24.40 TVS' Uriel: 14.10 Tricuspid Valve RA Press: 3.00 Great Vessels Aorta Sinus of Valsalva: 3.97 2.0-3.[address] [place]: 3.22 1.7-3.4 cm Ao Asc: 3.70 2.1-3.4 cm Updated in Other Vendor System with Status of Final Jason Barajas MD electronically signed on 05/02/2023 12:30:53 PM with status of Final
--- NOTE | 2023-05-02 11:18 | CA_ITS ---
Acquisition Time: 2023-05-02 09:05:13 Total Exercise Time: 00:08:25 Test Indications: Abnormal ECG Medications: LOSARTAN/HCTZ Protocol: APRIL Max HR: 137 BPM 86% of Pred: 158 BPM Max BP: 202/084 mmHG Max Work Load: 10.1 METS Exercise stress test exercise 8 min 25 sec of April protocol 86% MPHR, with mild SOB, 5/10 chest heaviness, isolated PVCs, ventricular cuplets, with max BP 202/84, without EKG changes. Chest heaviness resolved with rest. Test reviewed with Dr. Barajas Referred By: Jason Barajas Overread By: Flor Currie
== END ==
LOC: HO.CARD 07:51
PROVIDERS: PCP Nurse Practitioner Family; Visit Provider Internal Medicine Cardiovascular Disease
DX: I49.3 Ventricular premature depolarization (principal)
CPT/HCPCS: 93017; 93306; 93356

== ENCOUNTER → 2023-05-02 08:00 | Outpatient (BNV) | payer OTHER, SELFPAY | PROVIDERS: PCP Nurse Practitioner Family; Visit Provider Internal Medicine Cardiovascular Disease | DX: I35.8 Other nonrheumatic aortic valve disorders (principal); I34.89 Other nonrheumatic mitral valve disorders; R07.89 Other chest pain; R94.31 Abnormal electrocardiogram [ECG] [EKG] | CPT/HCPCS: 93016; 93018; 93306 ==

== ENCOUNTER 2023-05-08 09:09 | Outpatient (AMB) | payer OTHER, SELFPAY ==
[2023-05-08 09:10] VITALS: BP 134/74; PULSE 69; BMI 28.2
--- NOTE | 2023-05-08 09:10 | MHC.OFFVIS ---
Intake Vital Signs 05/08/23 09:10 Height 6 ft 4 in Weight 231 lb 7.766 oz BMI 28.2 BP 134/74 Blood Pressure Location Lt brachial Position Sitting Pulse 69 Pulse Source Pulse Oximeter Intake Visit Reasons: fu after echo/stress Certified Pharmacist Assistant Required: No Allergies meperidine [From DEMEROL] Allergy (Unknown, Unverified 05/08/23 09:13) VOMITING Lbkcanl-TJG-ObW Reductase Inhibitor Adverse Reaction (Intermediate, Verified 05/08/23 09:13) Muscle Pain SEASONAL ALLERGIES Allergy (Unknown, Uncoded 05/08/23 09:13) RUNNY NOSE/ITCHY EYES Medication List - Last Reconciled 05/08/23 by Katherin Lyn NP-C evolocumab (Repatha SureClick) 140 mg subcut Q2W losartan-hydrochlorothiazide 100-12.5 mg 1 tab PO DAILY 90 days HPI fu after echo/stress HPI Details Antelmo is a 63-year-old male past medical history of hyperlipidemia, statin intolerance, recently started on Repatha, PVCs, recent abnormal stress test who presents for follow-up. Today he reports that he has been feeling generally well. He does state that if he goes hiking will notice shortness of breath and heaviness in his chest. If he stops and rests his symptoms resolve and he is able to keep going. Does not seem overly concerned about this symptom and feels that it is just related to age. He has no chest symptoms at rest. Occasional heart palpitations, nothing that is concerning to him. No presyncope, syncope, falls, PND, orthopnea or edema. Takes his meds as directed. Has taken 3 doses of Repatha and has an upcoming lipid profile due. [facility] Medical History Arterial atherosclerosis Surgical History Hx of colonoscopy Social History Housing: House Patient Tobacco Use Status: Former Tobacco user Quit Date: 20 years ago Tobacco use type: Cigarette e-Cigarette/Vaping Use: Never Used Second Hand Smoke Exposure: No service: No Current occupational status: retired Cognitive needs: No Hearing needs: No Vision needs: No Review of Systems Const All systems reviewed & are unremarkable except as noted in HPI and below ENT Denies dizziness Card Details: chest tightness with exertion Denies chest pain, Denies chest pain at rest, Denies chest pain with activity, Denies rapid heart rate, Denies pedal edema, Denies edema, Denies leg edema, Denies lightheadedness, Denies palpitations, Denies dyspnea, Reports dyspnea on exertion and Denies orthopnea Resp Denies cough, Denies dyspnea and Reports dyspnea on exertion GI Denies hematochezia and Denies change in stool character Musc Denies abnormal gait, Denies limited range of motion, Denies muscle cramps, Denies muscle weakness, Denies numbness, Denies radiating pain into limb, Denies stiffness and Denies tingling Neuro Denies abnormal gait, Denies dizziness, Denies numbness and Denies tingling Endo Denies palpitations Physical Exam Vital Signs: Last Vital Signs Pulse 69 05/08/23 09:10 BP 134/74 05/08/23 09:10 BMI result Body Mass Index 28.2 Const General: cooperative, healthy appearing, comfortable and no acute distress Orientation/consciousness: patient oriented x3 Neck Neck: Yes normal visual inspection and Yes no JVD Resp Effort & Inspection: normal respiratory effort Auscultation: clear to auscultation bilaterally, no crackles, no rales, no rhonchi and no wheezes Cardio Jugular venous distension: no JVD Rate: regular rate Rhythm: regular rhythm Heart sounds: S1 normal heart sound present, S2 normal heart sound present, no murmurs and no rubs Neuro General: patient oriented x3 Extrem General: Yes normal to inspection and No no pedal edema Psych Appearance: grossly normal Mental Status: mental status grossly normal Speech and movement: Normal speech and movement present Assessment & Plan Assessment & Plan (1) Abnormal stress test: Code(s): R94.39 - Abnormal result of other cardiovascular function study Plan: Patient does admit to having some shortness of breath and chest heaviness when hiking. He did undergo a stress test on 05/02/2023 with exercise 8 minutes 25 seconds with report of chest heaviness, isolated PVCs and EKG showing no ischemia. Echocardiogram done 05/02/2023 shows EF 60-65%, mild LVH, grade 1 diastolic dysfunction. A stress echocardiogram has been ordered however not completed as of yet. The reason for that test has been reviewed with him and he is agreeable to proceed. He has cardiac risk factors of hypertension and hyperlipidemia. Signs and symptoms of angina reviewed. Will plan to call him with test results. Cardiology office visit in 6 months, sooner if needed. If tests are abnormal then his follow-up will be adjusted. (2) PVC (premature ventricular contraction): Code(s): I49.3 - Ventricular premature depolarization Plan: Reported history of PVCs. Patient does report occasional heart palpitations, nothing that causes much concern. He did have isolated PVCs noted during exercise stress test. Holter monitor has been already ordered however not completed as of yet. Plan to call him when results are available. He has not on any rate slowing agents at this time. Echo shows normal EF which is reassuring. (3) Hyperlipidemia: Code(s): E78.5 - Hyperlipidemia, unspecified Plan: History of hyperlipidemia and statin intolerance. [place] LDL goal less than 70. He recently started on Repatha and has taken 3 doses so far. A fasting lipid profile order is in the system and he is aware to obtain in the near future. (4) HTN (hypertension): Code(s): I10 - Essential (primary) hypertension Plan: History of hypertension. His echo does show mild LVH. Blood pressure currently normal range. Labs from 12/07/2022 showed potassium 4.5, creatinine 1. Continue current med management with losartan/hydrochlorothiazide combination. Plan Time spent on chart review, documentation, interview and assessment Coding Level of Care Code Est Pt Level 3 (45390) Diagnoses Abnormal stress test R94.39 PVC (premature ventricular contraction) I49.3 Hyperlipidemia E78.5 HTN (hypertension) I10 Time Spent (min) 24
== END 2023-05-08 09:50 | disposition home or self-care (01) ==
PROVIDERS: PCP Nurse Practitioner Family; Visit Provider Nurse Practitioner Family
DX: R94.39 Abnormal result of other cardiovascular function study (principal); I49.3 Ventricular premature depolarization; E78.5 Hyperlipidemia, unspecified; I10 Essential (primary) hypertension
CPT/HCPCS: 99213

== ENCOUNTER → 2023-05-08 09:09 | Outpatient (BNVA) | payer OTHER, SELFPAY | PROVIDERS: PCP Nurse Practitioner Family; Visit Provider Nurse Practitioner Family ==

== ENCOUNTER → 2023-06-09 10:53 | Outpatient (REF) | payer OTHER, SELFPAY ==
--- NOTE | 2023-06-09 10:56 | HM_ITS ---
* Total monitoring time 3 days. * Underlying rhythm is sinus with an average rate of 67/Min. * Frequent ventricular ectopy with a burden of 1.2%. Rare couplets, triplets, trigeminy. Multiple morphologies. About 15 short runs. Longest is 3 beats. Monomorphic. * Rare supraventricular ectopy. * No significant pauses or AV blocks. * No patient markers or diary events. MTDD
--- NOTE | 2023-06-09 10:56 | CA_ITS ---
Acquisition Time: 2023-06-09 11:02:23 Total Exercise Time: 00:10:13 Test Indications: Abnormal Treadmill Test Medications: REPATHA LOSARTAN/HCTZ Protocol: APRIL Max HR: 166 BPM 105% of Pred: 158 BPM Max BP: 177/088 mmHG Max Work Load: 12.1 METS Exercise stress test exercise 10 min 13 sec of April protocol achieving 102% MPHR, with mild to moderate SOB, 4/10 chest heaviness, with isolated PVCs, with max BP 174/92, without EKG changes. Chest heaviness and shortness of breath resolved with rest. Echo images obtained by [employer] at rest and immediately post peak exercise. Definity contrast used. Test reviewed with Dr. Mccormick. Echo images reviewed at rest and post stress. At rest: Low normal LVEF, no RWMA. Post stress: No definitive RWMA. LVEF augmented appropriately with normal LVEF. Diastology: No diastolic dysfunction noted. Conclusion: No definitive evidence of exercise induced RWMA or diastolic dysfunction. Referred By: Flor Currie Overread By: Martin Mccormick
== END ==
LOC: HO.CARD 10:53
PROVIDERS: PCP Nurse Practitioner Family; Visit Provider Nurse Practitioner
DX: R07.9 Chest pain, unspecified (principal); I49.3 Ventricular premature depolarization
CPT/HCPCS: 93242; 93350; Q9957

== ENCOUNTER → 2023-06-09 10:56 | Outpatient (BNV) | payer OTHER, SELFPAY | PROVIDERS: PCP Nurse Practitioner Family; Visit Provider Internal Medicine Cardiovascular Disease | DX: I49.8 Other specified cardiac arrhythmias (principal) | CPT/HCPCS: 93244; 93351; 93352 ==

== ENCOUNTER 2023-06-20 06:03 | Day surgery (SDC) | payer OTHER, SELFPAY ==
[2023-06-16 13:50] VITALS: BMI 28.1
--- NOTE | 2023-06-19 12:26 | P.CONAN_ITS ---
Documented by User: Nathalie Whitaker NP 06/19/23 12:30 HPI - Anesthesia Eval Consult details Narrative: 63yo M for Colonoscopy Recent cardiac w/u all neg PMFSH Active Problems Active Problems: All Active Problems Abnormal stress test (Acute) PVC (premature ventricular contraction) (Acute) Hyperlipidemia (Acute) Weak pulse (Acute) Leukopenia (Acute) HTN (hypertension) (Acute) Insomnia (Acute) Bilateral thumb pain (Acute) Dyslipidemia (Acute) Anemia (Acute) Right shoulder pain (Acute) Left knee pain (Acute) Lumbar spinal stenosis (Acute) Screening for colon cancer (Acute) Screening PSA (prostate specific antigen) (Acute) Physical exam (Acute) Elevated blood pressure reading (Acute) Left lumbar radiculitis (Acute) Past Medical History Medical History (Updated 06/16/23 @ 13:51 by Jazmyne Miner RN) Lumbar spinal stenosis HTN (hypertension) PVC (premature ventricular contraction) Arterial atherosclerosis Surgical History Surgical History (Updated 06/20/23 @ 06:38 by Venice Espinoza RN) History of bladder surgery Hx of colonoscopy Social History Social History Housing: House Patient Tobacco Use Status: Former Tobacco user Quit Date: 25 years Tobacco use type: Cigarette e-Cigarette/Vaping Use: Never Used Second Hand Smoke Exposure: No Use of substances other than those prescribed or required for medical reasons: No Are you DNR?: No Advance Directives: No Advance Directives Information Provided: Yes service: No Current occupational status: retired Cognitive needs: No Hearing needs: No Vision needs: No Meds Allergies Allergy/AdvReac Type Severity Reaction Status Date / Time meperidine [From DEMEROL] Allergy Unknown VOMITING Unverified 05/08/23 09:13 Bwubwxl-EJF-YlH Reductase AdvReac Intermediate Muscle Pain Verified 05/08/23 09:13 Inhibitor SEASONAL ALLERGIES Allergy Unknown RUNNY Uncoded 05/08/23 09:13 NOSE/ITCHY EYES Exam Height,Weight and Vital Signs: Height 6 ft 4 in Weight 104.78 kg Narrative Narrative: EKG 03/2023 normal sinus rhythm with frequent PVCs, appear to be unifocal with right bundle morphology consistent with LV origin ECHO 04/2023 Conclusions: - 1. Normal LV ejection fraction of 60 65% with mild LVH with grade 1 diastolic dysfunction 2. Normal cardiac valve with Doppler 3. Mildly dilated ascending aorta 3.7 cm. 4. No pericardial effusion Stress ECHO 05/2023 Echo images reviewed at rest and post stress. At rest: Low normal LVEF, no RWMA. Post stress: No definitive RWMA. LVEF augmented appropriately with normal LVEF. Diastology: No diastolic dysfunction noted. Conclusion: No definitive evidence of exercise induced RWMA or diastolic dysfunction. Holter 05/2023 * Total monitoring time 3 days. * Underlying rhythm is sinus with an average rate of 67/Min. * Frequent ventricular ectopy with a burden of 1.2%. Rare couplets, triplets, trigeminy. Multiple morphologies. About 15 short runs. Longest is 3 beats. Monomorphic. * Rare supraventricular ectopy. * No significant pauses or AV blocks. * No patient markers or diary events. Assessment and Plan Assessment Anesthesia Assessment: Chart Reviewed Documented by User: Diogo Mccord MD 06/20/23 07:36 [facility] Past Medical History Medical History (Updated 06/16/23 @ 13:51 by Jazmyne Miner RN) Lumbar spinal stenosis HTN (hypertension) PVC (premature ventricular contraction) Arterial atherosclerosis Family History Family history of problems with anesthesia: No Surgical History Surgical History (Updated 06/20/23 @ 06:38 by Venice Espinoza RN) History of bladder surgery Hx of colonoscopy History of Problems with Anesthesia: No Social History Social History Housing: House Patient Tobacco Use Status: Former Tobacco user Quit Date: 25 years Tobacco use type: Cigarette e-Cigarette/Vaping Use: Never Used Second Hand Smoke Exposure: No Use of substances other than those prescribed or required for medical reasons: No Are you DNR?: No Advance Directives: No Advance Directives Information Provided: Yes service: No Current occupational status: retired Cognitive needs: No Hearing needs: No Vision needs: No Meds Allergies Allergy/AdvReac Type Severity Reaction Status Date / Time meperidine [From DEMEROL] Allergy Unknown VOMITING Unverified 05/08/23 09:13 Zrhooku-LXT-MhX Reductase AdvReac Intermediate Muscle Pain Verified 05/08/23 09:13 Inhibitor SEASONAL ALLERGIES Allergy Unknown RUNNY Uncoded 05/08/23 09:13 NOSE/ITCHY EYES Exam Airway Mallampati Class: II TM Dist: >3cm Loose/Missing/Broken Teeth: No Heart: rrr Lungs: cta Assessment and Plan Assessment Anesthesia Assessment: Anesthesia Plan Discussed Final Anesthetic Review Family History of Problems with Anesthesia: No History of Problems with Anesthesia: No NPO: Yes ASA Class: II Final Preanesthetic Review: No Changes in Pt Med Stat, Meds/Allgs Chart Reviewed, Consent Obtained/Reviewed and Anes Risks/Benef Reviewed Patient Risk: Intermediate Procedure Risk: Intermediate Anesthetic Plan Anesthetic Plan: MAC: Disposition: Standard PACU
--- NOTE | 2023-06-20 05:53 | MHC.SHP ---
Pre-Procedural Eval Section A - 24 Hr Update-Section A only Date of Service: 06/20/23 Section B - Complete if H&P > 30 days Chief Complaint: Encounter for screening for malignant neoplasm of Relevant Family History (Specify if Yes): No Relevant Social History: None Present Medications: see Short Stay Collaborative assessment Medical History: Significant History (Lumbar spinal stenosis HTN (hypertension) PVC (premature ventricular contraction) Arterial atherosclerosis) History of Previous Operations: Relevant previous surgery/procedure and date(s) (History of bladder surgery Hx of colonoscopy) Allergies: Allergies Allergy/AdvReac Type Severity Reaction Status Date / Time meperidine [From DEMEROL] Allergy Unknown VOMITING Unverified 05/08/23 09:13 Mkyiwmj-HMO-SdW Reductase AdvReac Intermediate Muscle Pain Verified 05/08/23 09:13 Inhibitor SEASONAL ALLERGIES Allergy Unknown RUNNY Uncoded 05/08/23 09:13 NOSE/ITCHY EYES Review of Systems Sugical H&P ROS: Negative: Constitution, Cardiovascular, Respiratory, Neurological, Psychiatric, Hem-Onc, Allergic/Immunologic, Gastrointestinal, Genitourinary, Musculoskeletal, Integumentary, Endocrine and Eyes/Ears/Nose/Throat Exam Surgical H&P Exam: Normal: HEENT, Normal: Heart, Normal: Lungs, Normal: Extremities, Normal: Abdomen, Normal: Skin and Normal: Neurological Plan Diagnosis/Plan: Unchanged I have reviewed the history and physical and performed a pertinent physical examination on my patient. No changes have occurred unless specified. Time Spent With Patient Time: Total time managing care of this patient today ____ minutes.
[2023-06-20 06:43] VITALS: BMI 27.1
[2023-06-20 06:46] VITALS: BP 120/86; PULSE 63; RESP 18; TEMP 36.5; O2SAT 96
[2023-06-20] MEDS: Lactated Ringers 1,000 ML 100 ML IVCONT (07:03)
--- NOTE | 2023-06-20 07:50 | P.OP_ITS ---
Operative Note Operative Note Date of Service: 06/20/23 Narrative: Operative Information Procedure Description: Colonoscopy Indication: screening Anesthesia: MAC COLONOSCOPY Instrument: Olympus variable stiffness pediatric scope 190L Colonoscopy Monitoring: Vital signs and clinical assessment, continuous EKG monitoring, Pulse oximetry, Carbon Dioxide monitoring and blood pressure monitoring were done throughout the procedure. Colon withdrawal time was 11 minutes. Procedure: The patient was placed in the left lateral decubitis position and pre-procedure medications were administered. After a digital rectal examination of the ano-rectum, the video colonoscope was inserted into the rectum and advanced through the colon to the cecum/TI. The colonoscope was slowly withdrawn in a retrograde panoramic fashion and the colon mucosa was carefully examined including a retroflexed view of the rectum. Findings and interventions are described below. Procedure Difficulty: moderate Findings: Terminal Ileum- unable to intubate due to looping Cecum:normal Ascending Colon: normal Transverse Colon -normal Descending Colon:normal Sigmoid Colon: normal Rectum: Retroflexion with medium sized internal hemorrhoids seen, grade I Anorectum - normal Intervention: none Colon preparation: [place] Bowel Preparation Scale Right colon; 2 Transverse colon: 2 Left colon; 3 (0 = Unprepared colon segment with mucosa not seen due to solid stool that cannot be cleared. 1 = Portion of mucosa of the colon segment seen, but other areas of the colon segment not well seen due to staining, residual stool and/or opaque liquid. 2 = Minor amount of residual staining, small fragments of stool and/or opaque liquid, but mucosa of colon segment seen well. 3 = Entire mucosa of colon segment seen well with no residual staining, small fragments of stool or opaque liquid) Impression and Post Procedure Diagnosis: internal hemorrhoids Plan: High fiber diet leaflet Avoid straining at stool, epsom salts and sitz bath, anusol supps or cream Repeat Colonoscopy in 10 years or earlier if clinically indicated Above findings were reviewed with the patient and relevant handouts were provided if indicated.
[2023-06-20 08:11] VITALS: BP 106/63; PULSE 56; RESP 16; TEMP 36.1; O2SAT 97
[2023-06-20 08:26] VITALS: BP 114/68; PULSE 53; RESP 16; O2SAT 96
[2023-06-20 08:38] VITALS: BP 121/79; PULSE 54; RESP 16; TEMP 36.2; O2SAT 96
== END 2023-06-20 09:02 | disposition home or self-care (01) ==
PROVIDERS: PCP Nurse Practitioner Family; Visit Provider Internal Medicine Gastroenterology
PROC: 0DJD8ZZ Inspection of Lower Intestinal Tract, Via Natural or Artificial Opening Endoscopic (ICD-10-PCS; CPT 45378; principal; 2023-06-20 07:30)
DX: Z12.11 Encounter for screening for malignant neoplasm of colon (principal); K64.0 First degree hemorrhoids; I10 Essential (primary) hypertension; I49.3 Ventricular premature depolarization; I70.209 Unspecified atherosclerosis of native arteries of extremities, unspecified extremity; M48.061 Spinal stenosis, lumbar region without neurogenic claudication; Z87.891 Personal history of nicotine dependence; Z88.5 Allergy status to narcotic agent; Z88.8 Allergy status to other drugs, medicaments and biological substances
CPT/HCPCS: 45378; J2704

== ENCOUNTER → 2023-06-20 06:03 | Outpatient (BNV) | payer OTHER, SELFPAY | PROVIDERS: PCP Nurse Practitioner Family; Visit Provider Internal Medicine Gastroenterology | DX: Z12.11 Encounter for screening for malignant neoplasm of colon (principal); K64.8 Other hemorrhoids | CPT/HCPCS: 45378 ==

== ENCOUNTER 2023-07-04 09:49 | Outpatient (AMB) | payer OTHER, SELFPAY ==
--- NOTE | 2023-07-04 09:53 | MHC.OFFVIS ---
Vital Signs 07/04/23 09:55 Height 6 ft 4 in Weight 230 lb BMI 28.0 BP 121/74 Blood Pressure Location Lt brachial Position Sitting Pulse 67 Intake Visit Reasons: S/P [place]; Dr. Trevino Intake Note: Patient follow up for Colonoscopy results. Patient denies any GI issues for today. [employer] Required: No Accompanied by: Self / Same As Patient Allergies meperidine [From DEMEROL] Allergy (Unknown, Verified 07/04/23 09:53) VOMITING Ivqxnry-TWT-WcL Reductase Inhibitor Adverse Reaction (Intermediate, Verified 07/04/23 09:53) Muscle Pain SEASONAL ALLERGIES Allergy (Unknown, Uncoded 05/08/23 09:13) RUNNY NOSE/ITCHY EYES HPI Comments Details: A pleasant 63 y/o male f/u after colonoscopy He tolerated well He has hemorrhoids there non issue at this time. Reviewed procedure report, and recommendations He has no GI or general complaints No nausea, vomiting, hematemesis, hematochezia fever PFSH Medical History (Updated 07/04/23 @ 10:23 by Chio Ignacio PA-C) Lumbar spinal stenosis HTN (hypertension) PVC (premature ventricular contraction) Arterial atherosclerosis Surgical History History of bladder surgery Hx of colonoscopy Social History Housing: House Patient Tobacco Use Status: Former Tobacco user Quit Date: 25 years Tobacco use type: Cigarette e-Cigarette/Vaping Use: Never Used Second Hand Smoke Exposure: No service: No Current occupational status: retired Cognitive needs: No Hearing needs: No Vision needs: No Review of Systems Const All systems reviewed & are unremarkable except as noted in HPI and below Physical Exam Vital Signs: Last Vital Signs Pulse 67 07/04/23 09:55 BP 121/74 07/04/23 09:55 BMI result Body Mass Index 28.0 Const General: cooperative, healthy appearing, comfortable and no acute distress Orientation/consciousness: patient oriented x3 Limitations: no limitations Resp Effort & Inspection: normal respiratory effort and able to speak in complete sentences Skin General skin exam: no rashes or lesions noted Neuro General: patient oriented x3 Extrem General: Yes full ROM Psych Appearance: grossly normal and well kempt Mental Status: mental status grossly normal Speech and movement: Normal speech and movement present and Clear speech present Affect: normal affect Attitude: cooperative Thought process: Normal thought process present Thought content: Normal thought content present Insight: Good insight present (Psych) Judgement: Good judgement present (Psych) Assessment & Plan Assessment & Plan (1) Hemorrhoids: Code(s): K64.9 - Unspecified hemorrhoids Category: Medical Plan: Maintain high-fiber diet avoid straining Plan Asymptomatic colonoscopy 10-repeat Patient Instructions: Repeat asymptomatic colonoscopy 10 years Maintain high-fiber diet avoid straining with hemorrhoid If problematic will refer to surgical consult Encouraged to call questions or concerns Appreciate the opportunity assist in the care the Coding Level of Care Code Est Pt Level 3 (03100) Diagnoses Hemorrhoids K64.9 Time Spent (min) 30
[2023-07-04 09:55] VITALS: BP 121/74; PULSE 67; BMI 28.0
== END 2023-07-04 11:15 | disposition home or self-care (01) ==
PROVIDERS: PCP Nurse Practitioner Family; Visit Provider Physician Assistant
DX: K64.9 Unspecified hemorrhoids (principal)
CPT/HCPCS: 99213

== ENCOUNTER → 2023-07-04 09:49 | Outpatient (BNVA) | payer OTHER, SELFPAY | PROVIDERS: PCP Nurse Practitioner Family; Visit Provider Physician Assistant ==

== ENCOUNTER 2023-07-18 08:50 | Outpatient (REF) | payer OTHER, SELFPAY ==
[2023-07-18 11:52] LABS: MANUAL DIFF FLAG NO
[2023-07-18 12:05] LABS: Basophils Percent Auto 0.7 % (0-2); Eosinophils Absolute Auto 0.1 X10*3/uL (0.0-0.4); Eosinophils Percent Auto 2.7 % (0-4); Hemoglobin 13.9 g/dl (14.0-18.0); Imm Gran Abs Auto 0.01 X10*3/uL (0.00-0.03); Imm Gran Pct Auto 0.2 % (0.0-0.4); Lymphocytes Absolute Auto 1.4 X10*3/uL (1.2-4.9); Lymphocytes Percent Auto 32.8 % (20-40); Mean Corpuscular HGB Conc 33.1 g/dl (31.0-36.0); Mean Corpuscular Hemoglobin 31.3 pg (27.0-33.0); Mean Corpuscular Volume 94.6 fL (80.0-98.0); Mean Platelet Volume 11.5 fL (9.4-12.4); Monocytes Absolute Auto 0.5 X10*3/uL (0.1-1.2); Monocytes Percent Auto 10.8 % (2-11); Neutrophils Absolute Auto 2.2 x10*3/uL (2.0-8.3); Neutrophils Percent Auto 52.8 % (45-73); Platelet Count 167 X10*3/uL (160-400); Red Blood Count 4.44 X10*6/uL (4.60-5.80); Red Cell Distribution Width 12.6 % (11.0-16.0); White Blood Count 4.2 X10*3/uL (4.8-10.8)
[2023-07-18 12:33] LABS: Alanine Aminotransferase 22 U/L (0-40); Albumin Level 4.2 g/dL (3.5-5.0); Alkaline Phosphatase 57 U/L (39-117); Anion Gap 14 (12-20); Aspartate Amino Transferase 29 U/L (5-37); Bilirubin Total 0.7 mg/dL (0.0-1.0); Blood Urea Nitrogen 20 mg/dL (9-16); Calcium 9.7 mg/dL (8.4-10.2); Carbon Dioxide 28 mmol/L (22-29); Chloride 103 mmol/L (96-108); Cholesterol 140 mg/dL (<200); Estimated Glomerular Filt Rate > 60; Glucose Fasting 98 mg/dL (60-99); HDL Cholesterol 70 mg/dL (>40); LDL Cholesterol Calculated 48 mg/dL (<100); Potassium 3.8 mmol/L (3.3-5.1); Sodium 141 mmol/L (135-145); Total Protein 7.6 g/dL (6.5-8.0); Triglycerides 112 mg/dL (<150)
== END 2023-07-18 08:51 | disposition home or self-care (01) ==
LOC: HO.WFDLDS 08:50
PROVIDERS: Referring Provider Internal Medicine Cardiovascular Disease; Visit Provider Nurse Practitioner Family
DX: D72.819 Decreased white blood cell count, unspecified (principal); E78.5 Hyperlipidemia, unspecified
CPT/HCPCS: 36415; 80053; 80061; 85025

== ENCOUNTER 2023-07-20 10:49 | Outpatient (REF) | payer OTHER, SELFPAY ==
[2023-07-20 15:46] LABS: Prostate Specific Antigen Scr 0.49 ng/mL (<0.05-4.0)
== END 2023-07-20 10:50 | disposition home or self-care (01) ==
LOC: HO.WFDLDS 10:49
PROVIDERS: Visit Provider Nurse Practitioner Family
DX: Z12.5 Encounter for screening for malignant neoplasm of prostate (principal)
CPT/HCPCS: 36415; 84153

== ENCOUNTER 2023-08-23 12:26 | Outpatient (AMB) | payer OTHER, SELFPAY ==
[2023-08-23 12:29] VITALS: BP 126/76; PULSE 70; O2SAT 96; BMI 27.1
--- NOTE | 2023-08-23 12:29 | MHC.PC.OV ---
Vital Signs 08/23/23 12:29 Height 6 ft 4 in Weight 223 lb BMI 27.1 BP 126/76 Blood Pressure Location Lt brachial Position Sitting Pulse 70 Pulse Source Pulse Oximeter Pulse Oximetry (%) 96 Oxygen Delivery Method Room Air Intake Visit Reasons: Annual PE Intake Note: Pt is here today for PE. Allergies meperidine [From DEMEROL] Allergy (Unknown, Verified 08/23/23 12:34) VOMITING Nckbuvi-JUM-SgL Reductase Inhibitor Adverse Reaction (Intermediate, Verified 08/23/23 12:34) Muscle Pain SEASONAL ALLERGIES Allergy (Unknown, Uncoded 08/23/23 12:34) RUNNY NOSE/ITCHY EYES Medication List - Last Reconciled 08/23/23 by DIONE Vicente evolocumab (Repatha SureClick) 140 mg subcut Q2W losartan-hydrochlorothiazide 100-12.5 mg 1 tab PO DAILY 90 days valacyclovir 1,000 mg PO Q8H 7 days Tobacco use date assessed: 08/23/23 Dental Screening Dental Screen Date: 08/23/23 Did you have a dental visit in the last 12 months?: Yes Did you have a dental problem in the last 6 months where you did not have access to dental care?: No Was dental information given to patient?: Patient has dentist HPI Annual PE HPI Details Pt is here for a PE. Labs were already performed. Colon screen is up to date. PSA is up to date. Denies dribbling with urination, weak stream, and frequent nocturia. Leukopenia noted on last labs, will refer to hematology. Pt reports vesicular lesions to his bilat buttocks. He reports that these do not hurt or itch. Appears to be shingles, will send medication. [facility] Medical History Lumbar spinal stenosis HTN (hypertension) PVC (premature ventricular contraction) Arterial atherosclerosis Surgical History History of bladder surgery Hx of colonoscopy Social History Housing: House Patient Tobacco Use Status: Former Tobacco user Tobacco use type: Cigarette e-Cigarette/Vaping Use: Never Used Second Hand Smoke Exposure: No service: No Current occupational status: retired Cognitive needs: No Hearing needs: No Vision needs: No Questionnaire PHQ-9 Over the last 2 weeks, how often have you been bothered by any of the following problems? 1. Little interest or pleasure in doing things: not at all 2. Feeling down, depressed, or hopeless: not at all 3. Trouble falling or staying asleep, or sleeping too much: not at all 4. Feeling tired or having little energy: not at all 5. Poor appetite or overeating: not at all 6. Feeling bad about yourself - or that you are a failure or have let yourself or your family down: not at all 7. Trouble concentrating on things, such as reading the newspaper or watching television: not at all 8. Moving or speaking so slowly that other people could have noticed. Or the opposite - being so fidgety or restless that you have been moving around a lot more than usual: not at all 9. Thoughts that you would be better off or of hurting yourself in some way: not at all Total score: 0 Depression Screening Interpretation: Negative Depression Screening Done: Yes 17203 - PHQ-9 Billing: Yes Source: Developed by Drs. Henrik Catherine, Tami Davies, Vimal Conti and colleagues, with an educational denny from [employer]. Thrive Questionnaire Date Thrive assessed: 08/23/23 I am a: Patient What is your living situation today?: I have a steady place to live Within the past 12 months, did the food you bought not last and you didn't have the money to get more?: Never true Within the past 12 months, did you worry whether your food would run out before you got money to buy more?: Never true Do you have trouble paying for medicines?: No Do you have trouble getting transportation to medical appointments?: No Do you have trouble paying your heating and electricity bill?: No Do you have trouble taking care of your child, family member or friend?: No Do you have trouble with day-to-day activities such as bathing, preparing meals, shopping, managing finances, etc.?: No Are you currently unemployed and looking for a job?: No Are you interested in more education?: No Please select the resources that you would like help with: None THRIVE Score: 0 AUDIT C Alcohol Use Questionnaire (AUDIT-C) 1. How often do you have a drink containing alcohol?: 4 or more times a week 2. How many drinks containing alcohol do you have on a typical day when you are drinking?: 1 or 2 3. How often do you have six or more drinks on one occasion?: Never Total Score: 4 SALAS-7 AMB Questionnaire SALAS-7 Date SALAS - 7 assessed: 08/23/23 Feeling nervous, anxious, or on edge: 0 = Not at all Not being able to stop or control worryin = Not at all Worrying too much about different things: 0 = Not at all Trouble relaxin = Not at all Being so restless that it is hard to sit still: 0 = Not at all Becoming easily annoyed or irritable: 0 = Not at all Feeling afraid as if something awful might happen: 0 = Not at all Total SALAS-7 score (0-4 normal; 5-9 mild; 10-14 moderate; 15-21 severe): 0 Source: Developed by Drs. Henrik Catherine, Tami Davies, Vimal Conti and colleagues, with an educational denny from [employer]. SALAS-7 Assessment Billing SALAS-7 Assessment Tool: SALAS-7 Assessment 98643 Review of Systems Const Denies chills and Denies fever(s) Eyes Denies blurry vision ENT Denies vertigo, Denies dizziness and Denies sore throat Card Denies chest pain at rest, Denies chest pain with activity, Denies diaphoresis, Denies dyspnea and Denies dyspnea on exertion Resp Denies cough, Denies dyspnea, Denies dyspnea on exertion and Denies wheezing GI Denies abdominal pain, Denies melena, Denies hematochezia, Denies constipation, Denies diarrhea and Denies loose stools Denies hematuria Musc Denies numbness and Denies tingling Skin/Breast Denies lesions Neuro Denies vertigo, Denies dizziness, Denies numbness and Denies tingling Psych Denies anxiety, Denies depression, Denies homicidal ideation, Denies suicidal ideation and Denies other (substance abuse) Aller/Immun Denies wheezing Physical exam (Primary Care) Vital Signs: Last Vital Signs Pulse 70 06/12/24 12:29 BP 126/76 08/23/23 12:29 Pulse Ox 96 08/23/23 12:29 Oxygen Delivery Method Room Air 08/23/23 12:29 BMI result Body Mass Index 27.1 Tobacco/Smoking Status: Tobacco use Status Tobacco use date assessed 08/23/23 08/23/23 12:37 Patient Tobacco Use Status Former Tobacco user 08/23/23 12:29 Tobacco use type Cigarette 08/23/23 12:29 e-Cigarette/Vaping Use Never Used 08/23/23 12:29 PHQ-9: PHQ-9 Score PHQ-9: Total score 0 08/23/23 12:41 Depression Screening Interpretation: Negative Thrive Assessment: Date of Thrive Assessment Date Thrive assessed 08/23/23 08/23/23 12:41 Const General: cooperative Nutritional Appearance: well nourished Orientation/consciousness: patient oriented x3 HENMT Head: Yes normal to inspection, Yes normocephalic and Yes atraumatic Ears: TM's normal bilaterally Eyes General: appearance normal, both eyes and all related structures Alignment and Position: alignment normal and position normal Neck Neck: Yes normal visual inspection and Yes no lymphadenopathy Thyroid: Thyroid normal Resp Effort & Inspection: normal respiratory effort Auscultation: clear to auscultation bilaterally Cardio Rate: regular rate Rhythm: regular rhythm Heart sounds: S1 normal heart sound present, S2 normal heart sound present and no murmurs GI Palpation (GI): Soft to palpation and nontender Auscultation: normal bowel sounds Male General Exam: Yes normal external exam Penis: normal penis Scrotum: scrotum normal, testes descended bilaterally and no inguinal hernias Testes: no testicular mass Skin Other: bilat buttocks with small patches of vesicular lesions Rashes: no rashes Neuro General: patient oriented x3, moves all extremities, no focal motor deficits and deep tendon reflexes 2+ bilaterally Romberg Test: Negative Psych Appearance: grossly normal Mental Status: mental status grossly normal Speech and movement: Normal speech and movement present Affect: normal affect Attitude: cooperative Thought process: Normal thought process present Thought content: Normal thought content present Insight: Good insight present (Psych) Judgement: Good judgement present (Psych) Assessment and Plan Assessment & Plan (1) Leukopenia: Code(s): D72.819 - Decreased white blood cell count, unspecified Plan: Referred to hematology (2) Physical exam: Code(s): Z00.00 - Encounter for general adult medical examination without abnormal findings (3) Shingles: Code(s): B02.9 - Zoster without complications Plan: antiviral sent Plan The patient agreed to the use of a medical information officer for this encounter. Scribed for DIONE Cid by Claritza Durbin medical information officer, on 08/23/2023 at 12:45 EST. Orders: Referrals Hematology & Oncology Referral D72.819 - Decreased white blood cell count, unspecified Medications: New valacyclovir 1,000 mg PO Q8H 7 days 21 tabs 0RF Coding Level of Care Code Est Pt Prev Care 40-64y(21038) Diagnoses Leukopenia D72.819 Physical exam Z00.00 Shingles B02.9 Additional Codes SALAS-7 Assessment Billing - SALAS-7 Assessment Tool: SALAS-7 Assessment 56929 ([id number])
== END 2023-08-23 13:10 | disposition home or self-care (01) ==
PROVIDERS: PCP Nurse Practitioner Family; Visit Provider Nurse Practitioner Family
DX: Z00.00 Encounter for general adult medical examination without abnormal findings (principal); D72.819 Decreased white blood cell count, unspecified; B02.9 Zoster without complications
CPT/HCPCS: 99396

== ENCOUNTER → 2023-09-15 13:06 | Outpatient (BNV) | payer BC, SELFPAY | PROVIDERS: PCP Nurse Practitioner Family; Referring Provider Nurse Practitioner Family; Visit Provider Internal Medicine Medical Oncology | DX: D72.819 Decreased white blood cell count, unspecified (principal) | CPT/HCPCS: 99204; 99213 ==

== ENCOUNTER 2023-12-12 09:24 | Outpatient (AMB) | payer BC, SELFPAY ==
[2023-12-12 09:25] VITALS: BP 130/80; PULSE 79; BMI 26.8
--- NOTE | 2023-12-12 09:25 | A.OFFVIS_ITS ---
Vital Signs 12/12/23 09:25 Height 6 ft 4 in Weight 220 lb 7.396 oz BMI 26.8 BP 130/80 Blood Pressure Location Lt brachial Position Sitting Pulse 79 Intake Visit Reasons: r/s 11/14/23 6 mos followup Intake Note: 6 month follow-up feeling good Encoding Machine Operator Required: No Allergies meperidine [From DEMEROL] Allergy (Unknown, Verified 08/23/23 12:34) VOMITING Vntinmt-BRU-VtW Reductase Inhibitor Adverse Reaction (Intermediate, Verified 08/23/23 12:34) Muscle Pain SEASONAL ALLERGIES Allergy (Unknown, Uncoded 08/23/23 12:34) RUNNY NOSE/ITCHY EYES Medication List - Last Reconciled 12/12/23 by Jason Barajas MD evolocumab (Repatha SureClick) 140 mg subcut Q2W losartan-hydrochlorothiazide 100-12.5 mg 1 tab PO DAILY 90 days HPI Comments Details: Antelmo comes for follow-up. He has been doing extremely well. His LDL is extremely well optimized on PCSK9 inhibitor therapy from 204 to 48 mg/dL. His blood pressures been well controlled. He said he has can not swim because of shoulder issues but has no symptoms. Denies any exertional chest pain or shortness of breath. Denies any palpitations. Takes his medications regularly. His lower extremity scan did show atherosclerotic disease. [facility] Medical History (Updated 12/12/23 @ 10:06 by Jason Barajas MD) Lumbar spinal stenosis HTN (hypertension) PVC (premature ventricular contraction) Arterial atherosclerosis Surgical History History of bladder surgery Hx of colonoscopy Social History Housing: House Patient Tobacco Use Status: Former Tobacco user Tobacco use type: Cigarette e-Cigarette/Vaping Use: Never Used Second Hand Smoke Exposure: No service: No Current occupational status: retired Cognitive needs: No Hearing needs: No Vision needs: No Review of Systems Const Denies chills, Denies fatigue, Denies fever(s), Denies frequent falls, Denies weakness, Denies weight gain and Denies weight loss ENT Denies dizziness Card Denies chest pain, Denies leg edema, Denies lightheadedness, Denies palpitations, Denies dyspnea, Denies dyspnea on exertion, Denies orthopnea and Denies other (loss of consciousness) Resp Denies cough, Denies dyspnea and Denies dyspnea on exertion GI Denies hematochezia and Denies change in stool character Musc Denies abnormal gait, Denies muscle weakness, Denies numbness, Denies radiating pain into limb and Denies tingling Neuro Denies Abnormal speech present, Denies abnormal gait, Denies dizziness, Denies frequent falls, Denies numbness, Denies tingling and Denies weakness Endo Denies fatigue and Denies palpitations Physical Exam Vital Signs: Last Vital Signs Pulse 79 12/12/23 09:25 BP 130/80 12/12/23 09:25 BMI result Body Mass Index 26.8 Const General: cooperative, comfortable, no acute distress, alert, awake, Physically active and well groomed Nutritional Appearance: overweight Orientation/consciousness: patient oriented x3 Limitations: no limitations HEENT Head: Yes normocephalic and Yes atraumatic Neck Neck: Yes trachea midline, Yes supple and Yes no JVD Resp Effort & Inspection: normal respiratory effort Auscultation: clear to auscultation bilaterally Cardio Jugular venous distension: no JVD Palpation: normal PMI Rate: regular rate Rhythm: abnormal rhythm with ectopic beats Heart sounds: S1 normal heart sound present, S2 normal heart sound present, no click, no gallops, no murmurs and no rubs GI Auscultation: normal bowel sounds Skin General skin exam: no rashes or lesions noted Neuro General: patient oriented x3 and no focal motor deficits Speech: No Abnormal speech present Extrem General: Yes no clubbing, cyanosis or edema Psych Appearance: grossly normal Assessment & Plan Assessment & Plan (1) Arterial atherosclerosis: Code(s): I70.90 - Unspecified atherosclerosis Category: Medical Plan: Atherosclerotic disease in the lower extremities but without any obstructive disease. Also at a normal stress echocardiogram. We discussed about atherosclerotic process as a systemic process. His LDL is currently extremely well optimized on PCSK9 inhibitor therapy. Continue the same. Continue aggressive blood pressure control which is also currently well optimized. Importance of good blood pressure control was discussed as well. I encouraged him to increase his activity level and participate in regular physical activity. Low-dose aspirin therapy suggested. Annual lipid check should be performed. (2) PVC (premature ventricular contraction): Code(s): I49.3 - Ventricular premature depolarization Category: Medical Plan: PVCs without any symptoms at this point time. No change in therapy. Avoidance of stimulants was discussed. Stress mitigation strategies was discussed. Advised to call me with any new symptoms Will follow up in the clinic in 2 years time, sooner p.r.n.. Thank you for allowing me to partake in his care Coding Level of Care Code Est Pt Level 4 (30359) Diagnoses Arterial atherosclerosis I70.90 PVC (premature ventricular contraction) I49.3
== END 2023-12-12 09:53 | disposition home or self-care (01) ==
PROVIDERS: PCP Nurse Practitioner Family; Visit Provider Internal Medicine Cardiovascular Disease
DX: I70.90 Unspecified atherosclerosis (principal); I49.3 Ventricular premature depolarization
CPT/HCPCS: 99214

== ENCOUNTER → 2023-12-12 09:24 | Outpatient (BNVA) | payer BC, SELFPAY | PROVIDERS: PCP Nurse Practitioner Family; Visit Provider Internal Medicine Cardiovascular Disease ==

== ENCOUNTER 2024-02-13 05:57 | Outpatient (REF) | payer BC, SELFPAY ==
--- NOTE | ~2024-02-13 | XR_ITS ---
EXAMINATION: XR LUMBOSACRAL SPINE CLINICAL INFORMATION: M48.061 - Spinal stenosis, lumbar region without neurogenic claudication. COMPARISON: 07/10/2018 MRI lumbar spine, 07/05/2018 radiographs lumbar spine. TECHNIQUE: Three views of the lumbosacral spine. FINDINGS: Multilevel lumbar spondylosis. Facet arthritis in the mid to lower lumbar spine. Grade 1 retrolisthesis of L1 on L2. Moderate loss of disc space height at L1-L5 levels. Severe loss of disc space height with subchondral sclerosis and degenerative change at L5-S1. XR/XR lumbar spine 2-3V IMPRESSION: Multilevel degenerative disc disease, most notable at L5-S1. This study was presented today, February 13, 2024, for interpretation. Stat results provided at this time as requested by referring provider. Electronically signed by: Magda Shabazz MD 02/13/2024 09:24 AM DANIEL
== END 2024-02-13 05:58 | disposition home or self-care (01) ==
LOC: HO.XRAY 05:57
PROVIDERS: PCP Nurse Practitioner Family; Visit Provider Nurse Practitioner Family
DX: M48.061 Spinal stenosis, lumbar region without neurogenic claudication (principal)
CPT/HCPCS: 72100

== ENCOUNTER 2024-02-26 11:15 | Outpatient (AMB) | payer BC, SELFPAY ==
[2024-02-26 11:17] VITALS: BP 138/82; PULSE 73; O2SAT 96; BMI 27.3
--- NOTE | 2024-02-26 11:17 | MHC.PC.OV ---
Vital Signs 02/26/24 11:17 Height 6 ft 4 in Weight 224 lb BMI 27.3 BP 138/82 Blood Pressure Location Rt brachial Position Sitting Pulse 73 Pulse Source Pulse Oximeter Pulse Oximetry (%) 96 Intake Visit Reasons: 6 mon f/u Intake Note: pt is here for 6 month follow up Sharepoint Admin Required: No Accompanied by: Self / Same As Patient Allergies meperidine [From DEMEROL] Allergy (Unknown, Verified 02/26/24 11:59) VOMITING Vgfxvbz-OCL-ZmK Reductase Inhibitor Adverse Reaction (Intermediate, Verified 02/26/24 11:59) Muscle Pain SEASONAL ALLERGIES Allergy (Unknown, Uncoded 02/26/24 11:59) RUNNY NOSE/ITCHY EYES Medication List - Last Reconciled 02/26/24 by DIONNE Vicente- evolocumab (Repatha SureJoãoick) 140 mg subcut Q2W losartan-hydrochlorothiazide 100-12.5 mg 1 tab PO DAILY 90 days Tobacco use date assessed: 08/23/23 Dental Screening Dental Screen Date: 08/23/23 HPI 6 mon f/u HPI Details Chief Complaint The patient presents with a scratchy throat. History of Present Illness The patient is a 63-year-old male presenting with a viral upper respiratory infection characterized by a scratchy throat and postnasal drip. He reports no fever, chills, shortness of breath, or chest pain. The current symptoms have likely developed as a viral illness, similar to others experienced in the recent past, indicating variability in duration from a few days up to a month. Previous treatments or specific alleviating factors for his symptoms were not detailed, and he expresses concern over the potential contagious nature of the illness. Also noted in this visit, the patient is on Repatha for the management of hyperlipidemia, though cholesterol levels were not measured during this visit. He mentions plans for future lab work in the upcoming months. Furthermore, the patient has a history of arthritis and has previously undergone cortisone injections for symptom management, indicating he might pursue future treatments of this nature. HTN: stable Social History - Family: Discusses family outings and activities, including camping and fishing trips. - Activity Level: Engages in outdoor activities such as fishing and camping. - Footwear: Shows preference for L.L. Cardoza over Sorel due to durability concerns. Health Maintenance - Plans for cholesterol management through follow-up labs in March or April for hyperlipidemia. Review of Systems -denies any fevers, chills, N/V, sore throat, wheezing, WILHELM - Respiratory: Reports scratchy throat and postnasal drip. - General: Denies fever, chills, and shortness of breath. - Cardiovascular: Denies chest pain. Physical Exam General: Cooperative, healthy appearing, comfortable, no acute distress and well developed Orientation: Patient oriented x3 Limitations: No limitations Head: Normal to inspection Ears: Hearing grossly normal bilaterally Nose: Normal external nose present Face and sinus: Normal facial exam Eyes: Appearance normal, both eyes and all related structures Neck: Normal visual inspection and Yes full ROM, no lymphadenopathy Respiratory: Normal respiratory effort and able to speak in complete sentences. Clear to auscultation bilaterally Cardiovascular: Regular rate and rhythm. Normal S1 and S2 GI: Normal to inspection. Soft to palpation and nontender Skin: No rashes or lesions noted Neuro: Patient oriented x3 Extremities: Normal to inspection Results Plan - Continue monitoring the viral upper respiratory infection with guidance to maintain symptom relief. - Arrange for lipid panel testing in March or April to assess hyperlipidemia and adjust Repatha therapy as necessary. - Consideration of future cortisone injections for arthritis if symptoms persist or worsen. Patient is already seeing specialists for these injections. Patient was informed and verbally consented to the use of an ambient scribe for clinic note documentation during this visit. Discussion Notes During the visit, I discussed the patient's symptomatology and likely diagnosis of a viral upper respiratory infection. We covered that viral infections are typically self-limiting but can fluctuate in duration. I provided reassurance that his heart and lung sounds are currently normal, lessening immediate concerns of systemic involvement. We explored ongoing management of his hyperlipidemia with Repatha and discussed scheduling future laboratory work. The patient is considering further cortisone injections for his arthritis, as he has encountered relief from such treatments in the past. We confirmed the need for future lab assessments, and I encouraged keeping open communication regarding persistent or worsening symptoms. Patient Instructions - Monitor symptoms of the upper respiratory infection and seek care if symptoms significantly worsen. - Plan for cholesterol testing in March or April as scheduled. - Consider the benefits and timeline of cortisone injections for managing arthritis symptoms. - Maintain current lifestyle and inform if any major changes occur. [facility] Medical History Lumbar spinal stenosis HTN (hypertension) PVC (premature ventricular contraction) Arterial atherosclerosis Surgical History History of bladder surgery Hx of colonoscopy Social History Housing: House Patient Tobacco Use Status: Former Tobacco user Tobacco use type: Cigarette e-Cigarette/Vaping Use: Never Used Second Hand Smoke Exposure: No service: No Current occupational status: retired Cognitive needs: No Hearing needs: No Vision needs: No Questionnaire PHQ-9 Over the last 2 weeks, how often have you been bothered by any of the following problems? 1. Little interest or pleasure in doing things: not at all 2. Feeling down, depressed, or hopeless: not at all 3. Trouble falling or staying asleep, or sleeping too much: not at all 4. Feeling tired or having little energy: not at all 5. Poor appetite or overeating: not at all 6. Feeling bad about yourself - or that you are a failure or have let yourself or your family down: not at all 7. Trouble concentrating on things, such as reading the newspaper or watching television: not at all 8. Moving or speaking so slowly that other people could have noticed. Or the opposite - being so fidgety or restless that you have been moving around a lot more than usual: not at all 9. Thoughts that you would be better off or of hurting yourself in some way: not at all Total score: 0 Depression Screening Interpretation: Negative Depression Screening Done: Yes 99919 - PHQ-9 Billing: Yes Source: Developed by Drs. Henrik Catherine, Tami Davies, Vimal Conti and colleagues, with an educational denny from [employer]. Thrive Questionnaire Date Thrive assessed: 02/26/24 I am a: Patient What is your living situation today?: I have a steady place to live Within the past 12 months, did the food you bought not last and you didn't have the money to get more?: Never true Within the past 12 months, did you worry whether your food would run out before you got money to buy more?: Never true Do you have trouble paying for medicines?: No Do you have trouble getting transportation to medical appointments?: No Do you have trouble paying your heating and electricity bill?: No Do you have trouble taking care of your child, family member or friend?: No Do you have trouble with day-to-day activities such as bathing, preparing meals, shopping, managing finances, etc.?: No Are you currently unemployed and looking for a job?: No Are you interested in more education?: No Please select the resources that you would like help with: None Currently or been in a relationship where the following occur: No concerns reported THRIVE Score: 0 AUDIT C Alcohol Use Questionnaire (AUDIT-C) 1. How often do you have a drink containing alcohol?: 4 or more times a week 2. How many drinks containing alcohol do you have on a typical day when you are drinking?: 1 or 2 3. How often do you have six or more drinks on one occasion?: Never Total Score: 4 Score Reviewed/Action Taken: Yes SALAS-7 AMB Questionnaire SALAS-7 Date SALAS - 7 assessed: 02/26/24 Feeling nervous, anxious, or on edge: 0 = Not at all Not being able to stop or control worryin = Not at all Worrying too much about different things: 0 = Not at all Trouble relaxin = Not at all Being so restless that it is hard to sit still: 0 = Not at all Becoming easily annoyed or irritable: 0 = Not at all Feeling afraid as if something awful might happen: 0 = Not at all Total SALAS-7 score (0-4 normal; 5-9 mild; 10-14 moderate; 15-21 severe): 0 Source: Developed by Drs. Henrik Catherine, Tami Davies, Vimal Conti and colleagues, with an educational denny from [employer]. SALAS-7 Assessment Billing SALAS-7 Assessment Tool: SALAS-7 Assessment [id number] Physical exam (Primary Care) Vital Signs: Last Vital Signs Pulse 73 02/26/24 11:17 BP 138/82 02/26/24 11:17 Pulse Ox 96 02/26/24 11:17 BMI result Body Mass Index 27.3 Tobacco/Smoking Status: Tobacco use Status Tobacco use date assessed 08/23/23 02/26/24 11:20 Patient Tobacco Use Status Former Tobacco user 02/26/24 11:20 Tobacco use type Cigarette 02/26/24 11:20 e-Cigarette/Vaping Use Never Used 02/26/24 11:20 PHQ-9: PHQ-9 Score PHQ-9: Total score 0 02/26/24 11:20 Depression Screening Interpretation: Negative Thrive Assessment: Date of Thrive Assessment Date Thrive assessed 02/26/24 02/26/24 11:20 Currently or been in a relationship where the following occur: No concerns reported Coding Level of Care Code Est Pt Level 3 (07897) Diagnoses HTN (hypertension) I10 Hyperlipidemia E78.5 Viral illness B34.9 Additional Codes SALAS-7 Assessment Billing - SALAS-7 Assessment Tool: SALAS-7 Assessment 03584 ([id number]) PHQ-9 - 72354 - PHQ-9 Billing: Yes ([id number]) Assessment & Plan Assessment & Plan (1) HTN (hypertension): Code(s): I10 - Essential (primary) hypertension Category: Medical (2) Hyperlipidemia: Code(s): E78.5 - Hyperlipidemia, unspecified Category: Medical (3) Viral illness: Code(s): B34.9 - Viral infection, unspecified Category: Medical Plan . Orders: Orders Complete Blood Count Auto Diff Today E78.5 - Hyperlipidemia, unspecified, I10 - Essential (primary) hypertension Lipid Panel Today E78.5 - Hyperlipidemia, unspecified, I10 - Essential (primary) hypertension Comprehensive [place]. Panel Fast Today E78.5 - Hyperlipidemia, unspecified, I10 - Essential (primary) hypertension TSH reflex Free T4 Today E78.5 - Hyperlipidemia, unspecified, I10 - Essential (primary) hypertension UA CC w/rflx Micro + Cult Today E78.5 - Hyperlipidemia, unspecified, I10 - Essential (primary) hypertension
== END 2024-02-26 11:41 | disposition home or self-care (01) ==
PROVIDERS: PCP Nurse Practitioner Family; Visit Provider Nurse Practitioner Family
DX: I10 Essential (primary) hypertension (principal); E78.5 Hyperlipidemia, unspecified; B34.9 Viral infection, unspecified

== ENCOUNTER → 2024-02-26 11:15 | Outpatient (BNVA) | payer BC, SELFPAY | PROVIDERS: PCP Nurse Practitioner Family; Visit Provider Nurse Practitioner Family | DX: I10 Essential (primary) hypertension (principal); E78.5 Hyperlipidemia, unspecified; B34.9 Viral infection, unspecified | CPT/HCPCS: 96127 ==

== ENCOUNTER 2024-02-27 10:45 | Outpatient (AMB) | payer BC, SELFPAY ==
--- NOTE | 2024-02-27 10:49 | MHC.OFFVIS ---
Vital Signs 02/27/24 10:54 Height 6 ft 4 in Weight 220 lb BMI 26.8 BP 169/97 H Blood Pressure Location Rt brachial Position Sitting Pulse 71 Pulse Source Pulse Oximeter Pulse Oximetry (%) 98 Oxygen Delivery Method Room Air Intake Visit Reasons: Spinal stenosis, lumbar region Allergies meperidine [From DEMEROL] Allergy (Unknown, Verified 02/27/24 10:54) VOMITING Xlsjael-SBY-DtY Reductase Inhibitor Adverse Reaction (Intermediate, Verified 02/27/24 10:54) Muscle Pain SEASONAL ALLERGIES Allergy (Unknown, Uncoded 02/26/24 11:59) RUNNY NOSE/ITCHY EYES HPI Comments Details: Antelmo is a very pleasant 63-year-old male who presents to the office today for evaluation management of his chronic lower back pain Patient has been suffering with this pain for many years, he denies known fall, trauma, injury He reports over the last week the pain has improved with Tylenol and rest. He is having no pain today. He wanted to continue with this appointment so that he has established care here and will facilitate treatment in the future He states his pain is mostly midline without radiation down either lower extremity. Worse with sitting and when rising from a seated position. He does endorse some numbness/tingling of the left foot but no shooting, burning, numbness, tingling or electrical pain from the back down the leg. Denies lower extremity weakness Completed physical therapy about 1 year ago with some improvement. He continues with guided home exercise program. Recent x-ray was reviewed, results as per below. Denies any recent MRI. Taking Tylenol as needed with some relief. Also using heat and rest with improvement. Many years ago he underwent cortisone injections for stenosis that relieved his pain. Denies red flag symptoms including new loss of bowel, bladder or saddle anesthesia In terms of muscle damage condition is described as pinching, cramping, crushing, aching Pain is negatively impacting patient's sleep, ability to function normally Denies current use of anticoagulants Denies implantable devices, pacemaker defibrillator Denies current use of nicotine, tobacco, of his substances. Endorses social beer intake. [facility] Medical History Lumbar spinal stenosis HTN (hypertension) PVC (premature ventricular contraction) Arterial atherosclerosis Surgical History History of bladder surgery Hx of colonoscopy Social History Housing: House Patient Tobacco Use Status: Former Tobacco user Tobacco use type: Cigarette e-Cigarette/Vaping Use: Never Used Second Hand Smoke Exposure: No service: No Current occupational status: retired Cognitive needs: No Hearing needs: No Vision needs: No Review of Systems Const All systems reviewed & are unremarkable except as noted in HPI and below Physical Exam Vital Signs: Last Vital Signs Pulse 71 02/27/24 10:54 BP 169/97 H 02/27/24 10:54 Pulse Ox 98 02/27/24 10:54 Oxygen Delivery Method Room Air 02/27/24 10:54 BMI result Body Mass Index 26.8 General: awake, alert, oriented. Answers questions appropriately. Fully engaged in examination. Skin: warm, dry, intact HEENT: Normocephalic. Hearing intact. Cardiac: External chest normal in appearance. Respiratory: No cough, audible wheezing or stridor. Abdomen: without gross distension. MS: No obvious swelling or deformities. Able to stand on bilateral tiptoes and bilateral heels.? Able to transition from sit to stand unassisted. Ambulates with bilaterally normal heel strike and toe off SLR negative bilaterally Nontender over midline lumbar vertebrae and lumbar vertebral sounds Spurling positive bilaterally Bilateral lower extremity strength 5/5 Nontender over bilateral PSIS Valsalva negative Neurological: Oriented to person, place, time and situation. Thought process intact. No gait abnormalities appreciated. Psychiatric: Appropriate mood and affect. Good judgment and insight. Results Reviewed Results Reviewed: 02/13/24 XR/XR lumbar spine 2-3V FINDINGS: Multilevel lumbar spondylosis. Facet arthritis in the mid to lower lumbar spine. Grade 1 retrolisthesis of L1 on L2. Moderate loss of disc space height at L1-L5 levels. Severe loss of disc space height with subchondral sclerosis and degenerative change at L5-S1. IMPRESSION: Multilevel degenerative disc disease, most notable at L5-S1. Assessment & Plan Assessment & Plan (1) Spinal stenosis: Code(s): M48.00 - Spinal stenosis, site unspecified Category: Medical (2) Chronic lower back pain: Code(s): M54.50 - Low back pain, unspecified; G89.29 - Other chronic pain Category: Medical (3) Paresthesia of left lower extremity: Code(s): R20.2 - Paresthesia of skin Category: Medical Plan Antelmo is a very pleasant 63-year-old male who presented to the office today for evaluation and management of his chronic lower back pain History, physical exam and provocative testing consistent with lumbar spondylosis and spinal stenosis MRI ordered to evaluate for worsening spinal stenosis. EMG ordered to evaluate paresthesia of the left foot. Patient has exhausted greater than 6 weeks of conservative therapy including PT, home exercise program, NSAIDs without improvement of his symptoms Discussed options for treatment including diagnostic interventional testing, epidural steroid injections, peripheral nerve stimulation with Sprint, RFA and more permanent neuromodulation. We will discuss further after review of MRI. All questions and concerns have been answered and patient agrees with the plan. Follow up after MRI, sooner if needed. Orders: Orders MR lumbar spine wo con Today G89.29 - Other chronic pain, M48.00 - Spinal stenosis, site unspecified, M54.50 - Low back pain, unspecified NE electromyogram (EMG) Today R20.2 - Paresthesia of skin Coding Level of Care Code New Pt Level 4 (36322) Complex EM visit Add On G2211 Diagnoses Spinal stenosis M48.00 Chronic lower back pain M54.50; G89.29 Paresthesia of left lower extremity R20.2
[2024-02-27 10:54] VITALS: BP 169/97; PULSE 71; O2SAT 98; BMI 26.8
== END 2024-02-27 11:20 | disposition home or self-care (01) ==
PROVIDERS: PCP Nurse Practitioner Family; Visit Provider Registered Nurse Emergency
DX: M48.00 Spinal stenosis, site unspecified (principal); M54.50 Low back pain, unspecified; G89.29 Other chronic pain; R20.2 Paresthesia of skin
CPT/HCPCS: 99204

== ENCOUNTER → 2024-03-28 07:45 | Outpatient (BNV) | payer BC, SELFPAY | PROVIDERS: PCP Nurse Practitioner Family; Visit Provider Radiology Diagnostic Radiology | DX: M48.061 Spinal stenosis, lumbar region without neurogenic claudication (principal); M54.50 Low back pain, unspecified | CPT/HCPCS: 72148 ==

== ENCOUNTER 2024-03-28 07:48 | Outpatient (REF) | payer BC, SELFPAY ==
--- NOTE | ~2024-03-28 | MR_ITS ---
EXAMINATION: MR LUMBAR SPINE WITHOUT CONTRAST CLINICAL INFORMATION: Spinal stenosis. COMPARISON: MRI dated July 10, 2018. TECHNIQUE: MRI of the lumbar spine was obtained using routine sequences without contrast. FINDINGS: Last rib-bearing vertebra labeled T12. Bone marrow inhomogeneity. Modic type III endplate changes, L5-S1. Modic type II endplate changes at L1-2. Multilevel marginal osteophyte formation and disc desiccation. Grade 1 anterolisthesis L4-5. Grade 1 retrolisthesis L5-S1 and to a lesser extent L1-2 and L2-3 levels. Conus medullaris ends at the inferior endplate of L1 with normal signal. T12-L1: No disc herniation. No neuroforamina stenosis. L1-2: Broad-based disc bulging. Facet joint and ligamentum flavum hypertrophy. Reduced AP diameter of the thecal sac and the neural foramina likely encroaching the exiting nerve roots. L2-3: Broad-based disc bulging. Facet joint and ligamentum flavum hypertrophy. Reduced AP diameter of the thecal sac and the neural foramina likely encroaching the neural elements. L3-4: Broad-based disc bulging. Facet joint and ligamentum flavum hypertrophy resulting in CSF effacement of the thecal sac. Bilateral neuroforamina narrowing. L4-5: Broad-based disc bulging. Facet joint and ligamentum flavum hypertrophy resulting in CSF effacement of the thecal sac. Bilateral neuroforamina narrowing. L5-S1: Broad-based disc bulging. Facet joint hypertrophy. Bilateral neuroforamina narrowing encroaching the exiting nerve roots S1 and L5 bilaterally. No prevertebral compartment hematoma, mass or fluid collection. MR/MR lumbar spine wo con IMPRESSION: Multilevel lumbar spondylosis, L1-S1 resulting in central spinal canal stenosis at L4-5 and L3-4 levels and to a lesser extent L2-3 and bilateral neuroforamina stenosis from L1-2 to L5-S1 more conspicuous at L2-3, L3-4 levels. Electronically signed by: Nik Minaya MD 03/28/2024 09:03 AM [facility] [place]
== END 2024-03-28 07:49 | disposition home or self-care (01) ==
LOC: HO.MRI 07:48
PROVIDERS: PCP Nurse Practitioner Family; Visit Provider Registered Nurse Emergency
DX: M48.00 Spinal stenosis, site unspecified (principal); M54.50 Low back pain, unspecified; G89.29 Other chronic pain
CPT/HCPCS: 72148

== ENCOUNTER 2024-04-10 14:11 | Outpatient (REF) | payer BC, SELFPAY ==
--- NOTE | 2024-04-10 14:14 | EMG_ITS ---
Chief complaint: Chronic lower back pain. On and off left leg and foot numbness, not necessarily associated with the back pain. Reason for referral: Evaluate for radiculopathy Referred by: Abby Camara NP Procedure done: Left lower extremity NCS/EMG Precautions and/or limitations: None The limb temperature was monitored continuously and remained between 32-36 degrees C during the performance of the NCS. Nerve Conduction Studies Anti Sensory Summary Table ?Stim Site NR Onset (ms) Norm Onset (ms) Peak (ms) Norm Peak (ms) O-P Amp (?V) Norm O-P Amp Site1 Site2 Delta-0 (ms) Dist (cm) Uriel (m/s) Norm Uriel (m/s) Left Sural Anti Sensory (Lat Mall) Calf ? 1.6 2.9 <4.0 25.7 >5.0 Calf Lat Mall 1.6 14.0 88 Motor Summary Table ?Stim Site NR Onset (ms) Norm Onset (ms) O-P Amp (mV) Norm O-P Amp iAmp (mV) Amp (1st) (%) Site1 Site2 Delta-0 (ms) Dist (cm) Uriel (m/s) Norm Uriel (m/s) Left Peroneal Motor (Ext Dig Brev) Ankle ? 5.7 <4.0 3.6 >2.5 4.7 100.0 Ankle Ext Dig Brev 5.7 0.0 B Fib ? 13.6 3.9 5.0 108.3 B Fib Ankle 7.9 37.0 47 >40 Poplt ? 15.2 3.8 4.8 105.6 Poplt B Fib 1.6 5.0 31 >40 Left Tibial Motor (Abd Irizarry Brev) Ankle ? 3.8 <5 5.9 >2.5 7.8 100.0 Ankle Abd Irizarry Brev 3.8 0.0 Knee ? 13.8 4.2 5.3 71.2 Knee Ankle 10.0 45.0 45 >40 EMG ?Side Muscle Nerve Root Ins Act Fibs Psw Amp Dur Poly Recrt Int Pat Comment Left AbdHallucis MedPlantar S1-2 Incr 1+ 1+ Nml Nml 0 Nml Complete Left AntTibialis Dp Br Peron L4-5 Nml Nml Nml Nml Nml 0 Nml Complete Left MedGastroc Tibial S1-2 Nml Nml Nml Nml Nml 0 Nml Complete Left VastusMed Femoral L2-4 Nml Nml Nml Nml Nml 0 Nml Complete Left Peroneus Long Sup Br Peron L5-S1 Incr 1+ 1+ Incr Incr 0 Nml Complete Paraspinal EMG ?Side Muscle Nerve Root Ins Act Fibs Psw Comment Left Lumbar Upper Rami Nml Nml Nml Left Lumbar Mid Rami Nml Nml Nml Left Lumbar Lower Rami Incr 1+ 1+ FINDINGS: Left peroneal nerve showed prolonged distal latency, normal amplitude and slow conduction velocity across fibular neck. All other nerves tested were within normal. Concentric needle EMG was performed in selected muscles of the left lower extremity and lumbar paraspinals. Study revealed signs of electric abnormalities as shown in the table above. Left peroneus longus showed increased insertional activity, small PSWs, fibrillations, and increased duration and amplitude. Left AH showed increased insertional activity, PSWs and fibrillations. Left lower lumbar paraspinals showed increased insertional activity, PSWs and fibrillations. IMPRESSION: 1. This is an abnormal study. 2. There is electrodiagnostic evidence for left S1 radiculopathy. 3. There is electrodiagnostic evidence for a subacute/chronic left peroneal neuropathy at the fibular neck. 4. There is no electrodiagnostic evidence for tibial or sciatic neuropathy, lumbosacral plexopathy, or peripheral neuropathy. Thank you for your kind referral. Marilyn Sanders MD, KELSEA Board Certified, [place] Board [employer] Physical Medicine and Rehabilitation (ABPMR) Board Certified, [place] Board of Electrodiagnostic Medicine (ABEM) [place] [id number] [facility]
== END 2024-04-10 14:12 | disposition home or self-care (01) ==
LOC: HO.NEURO 14:11
PROVIDERS: PCP Nurse Practitioner Family; Visit Provider Registered Nurse Emergency
DX: R20.2 Paresthesia of skin (principal)
CPT/HCPCS: 95886; 95908

== ENCOUNTER → 2024-04-10 14:14 | Outpatient (BNV) | payer BC, SELFPAY | PROVIDERS: PCP Nurse Practitioner Family; Visit Provider Physical Medicine & Rehabilitation | DX: R20.2 Paresthesia of skin (principal); G57.92 Unspecified mononeuropathy of left lower limb | CPT/HCPCS: 95886; 95908 ==

== ENCOUNTER 2024-04-22 15:45 | Emergency (ER) | payer BC, SELFPAY ==
--- NOTE | ~2024-04-22 | XR_ITS ---
CLINICAL HISTORY: chest pain Chest X-ray, 1 View COMPARISON: None FINDINGS: No consolidation. No pleural effusion. No pneumothorax. No cardiomegaly. No acute fracture. Degenerative changes in the spine. IMPRESSION: No acute findings. This document has been electronically signed by: Ranjit Benitez MD on 04/22/2024 18:54:55
[2024-04-22 16:44] VITALS: BP 127/87; PULSE 97; RESP 18; TEMP 37.3; O2SAT 99; BMI 26.8
--- OUTSIDE RECORDS SUMMARY | 2024-04-22 18:11 | XMS_ITS | Encounter Summary ---
Author Organization [facility] Address [address] [place] [address] Care Team Providers Care Glue Spreader Name Role Phone Name, Les MOORE Primary Care Provider Scarlett Lynn MD Primary Care Provider Jesse Muñoz Primary Care Provider [phone] Encounter Details Date Type Department Care Team Description 02/20/2014 SCAN Medical Records [address] [place] [address] Abstract, Provider Social History Tobacco Use Types Packs/Day Years Used Date Smoking Tobacco: Former Comments:1998 Alcohol Use Standard Drinks/Week Comments Yes 8.3 (1 standard drink = 0.6 oz p ure alcohol) couple beers/day-varies Sex Assigned at Date Recorded Not on file documented as of this encounter Plan of Treatment Not on file documented as of this encounter Visit Diagnoses Not on filedocumented in this encounter Care Teams Glue Spreader Relationship Specialty Start Date End Date Name, MD Les PCP - General 07/05/1997 02/18/15 Scarlett Trevino MD PCP - General Internal Medicine 02/19/15 08/05/21 Jesse Marrero [address] [place] [id number] PCP - General Internal Medicine 08/06/21 documented as of this encounter
--- OUTSIDE RECORDS SUMMARY | 2024-04-22 18:11 | XMS_ITS | Encounter Summary ---
Author Organization [facility] Address [address] [place] [address] Care Team Providers Care Inventory Technician Name Role Phone Name, Les MOORE Primary Care Provider Scarlett Lynn MD Primary Care Provider Jesse Muñoz Primary Care Provider [phone] Reason for Visit * Reason Onset Date Comments Provider Call Back 11/19/2012 Encounter Details Date Type Department Care Team Description 11/19/2012 Telephone Dermatology [address] [place] [address] Alex Bejarano PA-C Provider Call Back Social History Tobacco Use Types Packs/Day Years Used Date Smoking Tobacco: Former Comments:1998 Alcohol Use Standard Drinks/Week Comments Yes 8.3 (1 standard drink = 0.6 oz p ure alcohol) couple beers/day-varies Sex Assigned at Date Recorded Not on file documented as of this encounter Miscellaneous Notes * Telephone Encounter - Shalonda Smith C.M.A. - 11/19/2012 10:34 AM EDT See other phone encounter this date. * Telephone Encounter - Meseret Sage - 11/19/2012 10:29 AM EDT Mr. Bejarano gave patient a cream for his wart Imiquimod 5% cream,patient is concern now he has an ulcer on the side of the wart which is not healing. Please call patient documented in this encounter Plan of Treatment Not on file documented as of this encounter Visit Diagnoses Not on filedocumented in this encounter Care Teams Inventory Technician Relationship Specialty Start Date End Date Name, MD Les PCP - General 07/05/1997 02/18/15 Scarlett Trevino MD PCP - General Internal Medicine 02/19/15 08/05/21 Jesse Marrero [address] [place] [id number] PCP - General Internal Medicine 08/06/21 documented as of this encounter
--- OUTSIDE RECORDS SUMMARY | 2024-04-22 18:11 | XMS_ITS | Encounter Summary ---
Author Organization [facility] Address [address] [place] [address] Care Team Providers Care Steel Box Toe Inserter Name Role Phone Scarlett Trevino MD Primary Care Provider Jesse Muñoz Primary Care Provider [phone] Reason for Visit * Reason Onset Date Comments injection 12/10/2015 Encounter Details Date Type Department Care Team Description 12/10/2015 Telephone Physiatry - [address] [address] Manan Willson DO injection Social History Tobacco Use Types Packs/Day Years Used Date Smoking Tobacco: Former Comments:1999 Alcohol Use Standard Drinks/Week Comments Yes 8.3 (1 standard drink = 0.6 oz p ure alcohol) couple beers/day-varies Sex Assigned at Date Recorded Not on file documented as of this encounter Miscellaneous Notes * Telephone Encounter - Marilyn Sanders MD - 12/10/2015 1:20 PM EDT Order for injection placed * Telephone Encounter - Rabia Price M.A. - 12/10/2015 12:29 PM EDT Please advise * Telephone Encounter - Shannon Shelton - 12/10/2015 12:00 PM EDT Request for injection Date of last injection: 07/24/15: Location/body part where pain is being experienced: low back Is this the same pain you had before your last injection?: yes Any recent injury: NO documented in this encounter Plan of Treatment Scheduled Orders Name Type Priority Associated Diagnoses Orde r Schedule PHYSIATRY PROCEDURE PHYSIATRY Routine Lumbar radiculitis Ordered: 12/10/2015 documented as of this encounter Visit Diagnoses Diagnosis Lumbar radiculitis- Primary Thoracic or lumbosacral neuritis or radiculitis, unspecified documented in this encounter Care Teams Steel Box Toe Inserter Relationship Specialty Start Date End Date Scarlett Trevino MD PCP - General Internal Medicine 02/19/15 08/05/21 Jesse Marrero [address] [place] [id number] PCP - General Internal Medicine 08/06/21 documented as of this encounter
--- OUTSIDE RECORDS SUMMARY | 2024-04-22 18:12 | XMS_ITS | Encounter Summary ---
Author Organization [facility] Address [address] [place] [address] Care Team Providers Care Developer Advocate Name Role Phone Name, Les MOORE Primary Care Provider Scarlett Lynn MD Primary Care Provider Jesse Muñoz Primary Care Provider [phone] Reason for Visit * Reason Comments REFERRAL Encounter Details Date Type Department Care Team Description 06/27/2002 Telephone Adult Medicine [address] [address] Henrik Mary [address] [place] [phone] REFERRAL Social History Tobacco Use Types Packs/Day Years Used Date Smoking Tobacco: Never Assessed Sex Assigned at Date Recorded Not on file documented as of this encounter Miscellaneous Notes * Telephone Encounter - 06/27/2002 10:50 AM EDTCALL RECEIVED. Contact: [phone] Payor: [facility] Plan: O $15 [place] [id number] Product Type: O [id number] PLEASE MAIL COPY TO PT HOME: [address] [place] [address] documented in this encounter Plan of Treatment Not on file documented as of this encounter Visit Diagnoses Not on filedocumented in this encounter Care Teams Developer Advocate Relationship Specialty Start Date End Date Name, MD Les PCP - General 07/05/1997 02/18/15 Scarlett Trevino MD PCP - General Internal Medicine 02/19/15 08/05/21 Jesse Marrero [address] [place] [address] PCP - General Internal Medicine 08/06/21 documented as of this encounter
--- OUTSIDE RECORDS SUMMARY | 2024-04-22 18:12 | XMS_ITS | Encounter Summary ---
Author Organization [facility] Address [address] [place] [address] Care Team Providers Care Cover Inspector Name Role Phone Name, Les MOORE Primary Care Provider Scarlett Lynn MD Primary Care Provider Jesse Muñoz Primary Care Provider [phone] Encounter Details Date Type Department Care Team Description 07/27/2010 Release of Information Medical Records [address] [place] [address] Abstract, Provider Social History Tobacco Use Types Packs/Day Years Used Date Smoking Tobacco: Former Comments:1998 Alcohol Use Standard Drinks/Week Comments Yes 0 (1 standard drink = 0.6 oz pur e alcohol) Sex Assigned at Date Recorded Not on file documented as of this encounter Plan of Treatment Not on file documented as of this encounter Visit Diagnoses Not on filedocumented in this encounter Care Teams Cover Inspector Relationship Specialty Start Date End Date Name, MD Les PCP - General 07/05/1997 02/18/15 Scarlett Trevino MD PCP - General Internal Medicine 02/19/15 08/05/21 Jesse Marrero [address] [place] [id number] PCP - General Internal Medicine 08/06/21 documented as of this encounter
--- OUTSIDE RECORDS SUMMARY | 2024-04-22 18:12 | XMS_ITS | Encounter Summary ---
Author Organization [facility] Address [address] [place] [address] Care Team Providers Care Architectural Wood Model Maker Name Role Phone Scarlett Trevino MD Primary Care Provider Jesse Muñoz Primary Care Provider [phone] Encounter Details Date Type Department Care Team Description 08/28/2018 Freight Weigher Report Medical Records [address] [place] [address] Conrad Metzger Social History Tobacco Use Types Packs/Day Years Used Date Smoking Tobacco: Former Smokeless Tobacco: Former Chew Comments:1998 Alcohol Use Standard Drinks/Week Comments Yes 8.3 (1 standard drink = 0.6 oz p ure alcohol) couple beers/day-varies Sex Assigned at Date Recorded Not on file documented as of this encounter Plan of Treatment Not on file documented as of this encounter Visit Diagnoses Not on filedocumented in this encounter Care Teams Architectural Wood Model Maker Relationship Specialty Start Date End Date Scarlett Trevino MD PCP - General Internal Medicine 02/19/15 08/05/21 Jesse Marrero [address] [place] [id number] PCP - General Internal Medicine 08/06/21 documented as of this encounter
--- OUTSIDE RECORDS SUMMARY | 2024-04-22 18:12 | XMS_ITS | Encounter Summary ---
Author Organization [facility] Address [address] [place] [address] Care Team Providers Care Financial Aid Name Role Phone Scarlett Trevino MD Primary Care Provider Jesse Muñoz Primary Care Provider [phone] Encounter Details Date Type Department Care Team Description 07/02/2019 [address]phone [address] [place] [address] Alex Bejarano PA-C Social History Tobacco Use Types Packs/Day Years Used Date Smoking Tobacco: Former Smokeless Tobacco: Former Chew Comments:1999 Alcohol Use Standard Drinks/Week Comments Yes 8.3 (1 standard drink = 0.6 oz p ure alcohol) couple beers/day-varies Sex Assigned at Date Recorded Not on file documented as of this encounter Miscellaneous Notes * Telephone Encounter - Isaac Lowery - 07/02/2019 9:00 AM EDT Left message for patient to call back and reschedule per provider * Telephone Encounter - Alex Bejarano PA-C - 07/02/2019 7:12 AM EDT Please inform this patient that all nonessential visits are being canceled until after the COVID-19pandemic ..... thanks documented in this encounter Plan of Treatment Not on file documented as of this encounter Visit Diagnoses Not on filedocumented in this encounter Care Teams Financial Aid Relationship Specialty Start Date End Date Scarlett Trevino MD PCP - General Internal Medicine 02/19/15 08/05/21 Jesse Marrero [address] [place] [address] PCP - General Internal Medicine 08/06/21 documented as of this encounter
--- OUTSIDE RECORDS SUMMARY | 2024-04-22 18:12 | XMS_ITS | Encounter Summary ---
Author Organization [facility] Address [address] [place] [address] Care Team Providers Care Patrol Police Lieutenant Name Role Phone Name, Les MOORE Primary Care Provider Scarlett Lynn MD Primary Care Provider Jesse Muñoz Primary Care Provider [phone] Reason for Visit * Reason Comments REFERRAL rm webb Encounter Details Date Type Department Care Team Description 07/31/2002 Telephone Adult Medicine [address] [address] Henrik Mary [address] [place] [phone] REFERRAL (rm webb) Social History Tobacco Use Types Packs/Day Years Used Date Smoking Tobacco: Never Assessed Sex Assigned at Date Recorded Not on file documented as of this encounter Miscellaneous Notes * Telephone Encounter - 07/31/2002 1:33 PM EDTCALL RECEIVED. Contact: self [phone] Payor: [id number] Product Type: O [id number] Dr. Henrik Mary documented in this encounter Plan of Treatment Not on file documented as of this encounter Visit Diagnoses Not on filedocumented in this encounter Care Teams Patrol Police Lieutenant Relationship Specialty Start Date End Date Name, MD Les PCP - General 07/05/1997 02/18/15 Scarlett Trevino MD PCP - General Internal Medicine 02/19/15 08/05/21 Jesse Marrero [address] [place] [address] PCP - General Internal Medicine 08/06/21 documented as of this encounter
--- OUTSIDE RECORDS SUMMARY | 2024-04-22 18:12 | XMS_ITS | Encounter Summary ---
Author Organization [facility] Address [address] [place] [address] Care Team Providers Care Aircraft Technician Name Role Phone Name, Les MOORE Primary Care Provider Scarlett Lynn MD Primary Care Provider Jesse Muñoz Primary Care Provider [phone] Reason for Visit * Reason Comments LAB WORK Encounter Details Date Type Department Care Team Description 10/23/2003 Telephone Adult Medicine [address] [address] Henrik Mary [address] [place] [phone] LAB WORK Social History Tobacco Use Types Packs/Day Years Used Date Smoking Tobacco: Never Assessed Sex Assigned at Date Recorded Not on file documented as of this encounter Miscellaneous Notes * Telephone Encounter - 10/23/2003 11:36 AM EDTCALL RECEIVED. Contact: dr moreno reviewed pts labs from 10/22/03, per dr moreno, pt needs appt to discuss cholesterol issu es. 2 msgs have been left for pt at home to make f/u appt to discuss labs. could be with either pa, or new pcp. documented in this encounter Plan of Treatment Not on file documented as of this encounter Visit Diagnoses Not on filedocumented in this encounter Care Teams Aircraft Technician Relationship Specialty Start Date End Date Name, MD Les PCP - General 07/05/1997 02/18/15 Scarlett Trevino MD PCP - General Internal Medicine 02/19/15 08/05/21 Jesse Marrero [address] [place] [id number] PCP - General Internal Medicine 08/06/21 documented as of this encounter
--- OUTSIDE RECORDS SUMMARY | 2024-04-22 18:12 | XMS_ITS | Encounter Summary ---
Author Organization [facility] Address [address] [place] [address] Care Team Providers Care Geoint Analyst Name Role Phone Scarlett Trevino MD Primary Care Provider Jesse Muñoz Primary Care Provider [phone] Encounter Details Date Type Department Care Team Description 11/12/2015 Director Center Report Medical Records [address] [place] [address] Kaycee Vogel MD Social History Tobacco Use Types Packs/Day Years [...] on filedocumented in this encounter Care Teams Geoint Analyst Relationship Specialty Start Date End Date Scarlett Trevino MD PCP - General Internal Medicine 02/19/15 08/05/21 Jesse Marrero [address] [place] [address] PCP - General Internal Medicine 08/06/21 documented as of this encounter
[2024-04-22 18:17] VITALS: BP 111/75; PULSE 68; RESP 12; TEMP 37.2; O2SAT 94
[2024-04-22 18:17] LABS: Basophils Percent Auto 0.3 % (0-2); Imm Gran Abs Auto 0.01 X10*3/uL (0.00-0.03); Imm Gran Pct Auto 0.3 % (0.0-0.4); PLT CLUMP 1; SCAN SMEAR FLAG 1
[2024-04-22 18:18] LABS: Hematocrit 43.4 % (42.0-52.0); Hemoglobin 14.5 g/dl (14.0-18.0); Lymphocytes Absolute Auto 0.7 X10*3/uL (1.2-4.9); Lymphocytes Percent Auto 20.3 % (20-40); Mean Corpuscular HGB Conc 33.4 g/dl (31.0-36.0); Mean Corpuscular Hemoglobin 31.5 pg (27.0-33.0); Mean Corpuscular Volume 94.3 fL (80.0-98.0); Mean Platelet Volume 11.1 fL (9.4-12.4); Monocytes Absolute Auto 0.5 X10*3/uL (0.1-1.2); Neutrophils Absolute Auto 2.2 x10*3/uL (2.0-8.3); Neutrophils Percent Auto 65.1 % (45-73); Red Cell Distribution Width 12.8 % (11.0-16.0)
[2024-04-22 18:28] LABS: Alanine Aminotransferase 30 U/L (0-40); Albumin Level 4.4 g/dL (3.5-5.0); Alkaline Phosphatase 48 U/L (39-117); Anion Gap 15 (12-20); Aspartate Amino Transferase 43 U/L (5-37); Bilirubin Total 0.3 mg/dL (0.0-1.0); Blood Urea Nitrogen 20 mg/dL (9-16); Calcium 9.4 mg/dL (8.4-10.2); Carbon Dioxide 27 mmol/L (22-29); Chloride 102 mmol/L (96-108); Creatinine Clr Calc Pharmacy 72.5; Estimated Glomerular Filt Rate 57; Glucose Random 103 mg/dL (60-115); Magnesium 2.1 mg/dL (1.6-2.6); Potassium 4.2 mmol/L (3.3-5.1); Sodium 140 mmol/L (135-145); Total Protein 8.2 g/dL (6.5-8.0)
[2024-04-22 18:34] LABS: Troponin-I High Sensitivity 6.3 ng/L (<3.5-35.0)
[2024-04-22 18:37] LABS: White Blood Count 3.4 X10*3/uL (4.8-10.8)
[2024-04-22 18:38] LABS: MANUAL DIFF FLAG NO; Platelet Count 130 X10*3/uL (160-400)
[2024-04-22] MEDS: 0.9 % Sodium Chloride 1,000 ML 999 ML IV (18:49)
[2024-04-22 18:50] LABS: Influenza A PCR POSITIVE (Negative); Influenza B PCR NEGATIVE (Negative); Resp Syncy Virus RNA Qual PCR NEGATIVE (Negative); SARS COV2 PCR INHOUSE NEGATIVE (Negative)
[2024-04-22 19:33] LABS: Troponin-I High Sensitivity 6.5 ng/L (<3.5-35.0)
--- NOTE | 2024-04-22 19:38 | ED.CHESTPAIN ---
HPI - Chest Pain General Chief Complaint: Chest Pain Stated Complaint: Numbness in legs, chest pain Time Seen by Provider: 04/22/24 18:14 Source: patient Limitations: no limitations History of Present Illness ED Provider: Jazmyne Oleary PA-C HPI narrative: 64-year-old male with a history of hypertension, hyperlipidemia, self report of a arrhythmia, known coronary artery disease, STEMI, who presents after near syncopal episode at home. Patient states he has been sick over the past few days he thinks he had the flu; he has had headache, body aches fevers, his was sick with influenza. Patient states he was outside snow blowing, he came inside when to use the bathroom, the patient states he felt chest tightness, and that his legs became extremely weak, he subsequently fell off the toilet. At that time the patient also states he had paresthesias in his fingers. Denies concurrent headache, dizziness, active vomiting. Patient did not lose consciousness, there was no head strike. Related Data Previous Rx's ?Medication ?Instructions ?Recorded losartan 100 1 tab PO DAILY 90 days #90 tabs 03/12/24 mg-hydrochlorothiazide 12.5 mg tablet evolocumab 140 mg/mL subcutaneous 140 mg subcut Q2W #2 mL 03/28/24 pen injector (Shira España) Allergies Allergy/AdvReac Type Severity Reaction Status Date / Time meperidine [From DEMEROL] Allergy Unknown VOMITING Verified 04/22/24 16:47 Tmvkpar-PRQ-VoC Reductase AdvReac Intermediate Muscle Pain Verified 04/22/24 16:47 Inhibitor SEASONAL ALLERGIES Allergy Unknown RUNNY Uncoded 04/22/24 16:47 NOSE/ITCHY EYES Review of Systems Review of Systems: Yes all other systems are reviewed and are negative Constitutional: Constitutional: Denies fatigue, Reports fever(s), Reports headache(s) and Reports malaise ENT: Denies dizziness and Reports headache(s) Cardiovascular: Cardiovascular: Reports chest pain, Reports syncope and Denies dyspnea Respiratory: Respiratory: Denies cough, Denies dyspnea and Denies wheezing Gastrointestinal: Gastrointestinal: Denies abdominal pain, Denies diarrhea, Denies nausea and Denies vomiting Musculoskeletal: Musculoskeletal: Reports myalgias and Reports tingling Neurologic: Denies dizziness, Reports syncope, Reports headache(s), Reports tingling and Reports paresthesias Endocrine: Endocrine: Denies fatigue Allergic/Immunologic: Allergic/Immunologic: Denies wheezing PMFSH Past Medical History Attestation statement: The following information was validated with the patient. Medical History Lumbar spinal stenosis HTN (hypertension) PVC (premature ventricular contraction) Arterial atherosclerosis Surgical History History of bladder surgery Hx of colonoscopy Social History Social History Housing: House Patient Tobacco Use Status: Former Tobacco user Tobacco use type: Cigarette Smoked in Last 30 Days: No e-Cigarette/Vaping Use: Never Used Second Hand Smoke Exposure: No Use of substances other than those prescribed or required for medical reasons: No Advance Directives: No Advance Directives Information Provided: No Do you have a plan to hurt others: No Plan service: No Current occupational status: retired Cognitive needs: No Hearing needs: No Vision needs: No Physical Exam Vital Signs: Vital Signs: Last Vital Signs Temp 98.9 F 04/22/24 18:17 Pulse 68 04/22/24 18:17 Resp 12 04/22/24 18:17 BP 111/75 04/22/24 18:17 Pulse Ox 94 04/22/24 18:17 O2 Del Method Room Air 04/22/24 18:17 BMI result Body Mass Index 26.8 Const: Other: Alert well-appearing Orientation/consciousness: patient oriented x3 Resp: Effort & Inspection: normal respiratory effort Cardio: Other: Normal peripheral perfusion Skin: Other: Warm dry no rash Neuro: General: patient oriented x3, gait normal, no focal motor deficits and CN's II-XI intact bilaterally Psych: Other: Cooperative Medications Administered Discontinued Medications Generic Name Dose Route Start Last Admin Trade Name Freq PRN Reason Stop Dose Admin Sodium Chloride 1,000 mls @ 999 mls/hr 04/22/24 18:45 04/22/24 18:49 Ns IV 04/22/24 19:45 999 mls/hr .Q1H1M THADDEUS Administration Medical Decision Making Medical Decision Making MDM Narrative: 64-year-old male with a history of hypertension, hyperlipidemia, self report of a arrhythmia, known coronary artery disease, STEMI, who presents after near syncopal episode at home. Patient states he has been sick over the past few days he thinks he had the flu; he has had headache, body aches fevers, his was sick with influenza. Patient states he was outside snow blowing, he came inside when to use the bathroom, the patient states he felt chest tightness, and that his legs became extremely weak, he subsequently fell off the toilet. At that time the patient also states he had paresthesias in his fingers. Denies concurrent headache, dizziness, active vomiting. Patient did not lose consciousness, there was no head strike. Problem: Known coronary artery disease, report of arrhythmia, known viral syndrome History: Per patient I have considered the following differential diagnoses: Viral syndrome, dehydration, electrolyte abnormality, vasovagal near syncope, ACS Plan: ACS considered, the patient has known coronary artery disease in his high-risk, however I do not feel his presentation is consistent with ACS. Screening labs including a cardiac enzymes EKG and chest x-ray were obtained. The patient has underlying viral syndrome, his was sick with influenza, obtaining a viral panel. His symptoms are likely secondary to the flu and having exerted himself outside. We will be giving IV fluids. He may be dehydrated given he has not been eating/drinking well over the past few days. I have independently reviewed the following tests: Labs: No leukocytosis, not anemic, creatinine subtly elevated at 1.28 the last was 0.9, no other electrolyte abnormality, 1st troponin 6.3, the 2nd is 6.5, viral panel positive for influenza A EKG: Normal sinus rhythm, rate of 97, no new ischemic changes no ectopy, QTC 434 Chest x-ray:FINDINGS: No consolidation. No pleural effusion. No pneumothorax. No cardiomegaly. No acute fracture. Degenerative changes in the spine. IMPRESSION: No acute findings. This document has been electronically signed by: Ranjit eBnitez MD on 04/22/2024 18:54:55 Lab Data 04/22/24 18:07 04/22/24 18:07 Labs: Lab Results 04/22/24 04/22/24 04/22/24 Range/Units 18:06 18:07 19:08 WBC 3.4 L (4.8-10.8) X10*3/uL RBC 4.60 (4.60-5.80) X10*6/uL Hgb 14.5 (14.0-18.0) g/dl Hct 43.4 (42.0-52.0) % MCV 94.3 (80.0-98.0) fL MCH 31.5 (27.0-33.0) pg MCHC 33.4 (31.0-36.0) g/dl RDW 12.8 (11.0-16.0) % Plt Count 130 L D (160-400) X10*3/uL MPV 11.1 (9.4-12.4) fL Immature Gran % (Auto) 0.3 (0.0-0.4) % Neut % (Auto) 65.1 (45-73) % Lymph % (Auto) 20.3 (20-40) % [place] % (Auto) 14.0 H (2-11) % Eos % (Auto) 0.0 (0-4) % Baso % (Auto) 0.3 (0-2) % Lymph # (Auto) 0.7 L (1.2-4.9) X10*3/uL [place] # (Auto) 0.5 (0.1-1.2) X10*3/uL Eos # (Auto) 0.0 (0.0-0.4) X10*3/uL Baso # (Auto) 0.0 (0.0-0.2) X10*3/uL Abs Immat Gran (auto) 0.01 (0.00-0.03) X10*3/uL Absolute Neuts (auto) 2.2 (2.0-8.3) x10*3/uL Absolute Nucleated RBC 0.000 (0.0-0.012) X10*3/uL Nucleated RBC % (auto) 0.0 (0.0-0.2) /100WBC Sodium 140 (135-145) mmol/L Potassium 4.2 (3.3-5.1) mmol/L Chloride 102 (96-108) mmol/L Carbon Dioxide 27 (22-29) mmol/L Anion Gap 15 (12-20) BUN 20 H (9-16) mg/dL Creatinine 1.28 (0.5-1.4) mg/dL Estim Creat Clear Calc 72.5 Estimated GFR 57 Random Glucose 103 (60-115) mg/dL Calcium 9.4 (8.4-10.2) mg/dL Magnesium 2.1 (1.6-2.6) mg/dL Total Bilirubin 0.3 (0.0-1.0) mg/dL AST 43 H (5-37) U/L ALT 30 (0-40) U/L Alkaline Phosphatase 48 (39-117) U/L Troponin I High Sens 6.3 6.5 (<3.5-35.0) ng/L Total Protein 8.2 H (6.5-8.0) g/dL Albumin 4.4 (3.5-5.0) g/dL Influenza Type A (PCR) POSITIVE A (Negative) Influenza Type B (PCR) NEGATIVE (Negative) RSV RNA Qual (PCR) NEGATIVE (Negative) SARS-CoV-2 RNA (RT-PCR) NEGATIVE (Negative) Discharge Plan Discharge Clinical Impression: Influenza A, Vasovagal reaction, Dehydration Patient Disposition: Home, Self-Care Instructions: Dehydration (ED), Influenza (ED), Near Syncope (ED) Additional Instructions: You were found to be positive for influenza A. Overall, the remainder of your screening labs including 2 cardiac enzymes were normal. You were noted to be slightly dehydrated. There were no concerning changes on your EKG in the chest x-ray is clear. You were treated for mild dehydration. I do feel your dehydration, coupled with the fact that you have underlying viral syndrome, was the trigger for your near syncopal episode. See home care instructions. Make an appointment to follow up with your primary care provider next week. Prescriptions: No Action losartan-hydrochlorothiazide 100-12.5 mg tablet 1 tab PO DAILY 90 Days Qty: 90 1RF Repatha SureClick 140 mg/mL pen injector 140 mg subcut Q2W Qty: 2 5RF Print Language: Bengali
[2024-04-22 20:13] VITALS: BP 111/75; PULSE 68; RESP 12; TEMP 37.2; O2SAT 94
== END 2024-04-22 20:16 | disposition home or self-care (01) ==
PROVIDERS: Physician Assistant Medical; Emergency Provider Emergency Medicine; PCP Nurse Practitioner Family
DX: J10.1 Influenza due to other identified influenza virus with other respiratory manifestations (principal); E86.0 Dehydration; R55 Syncope and collapse; R07.9 Chest pain, unspecified; R51.9 Headache, unspecified; R50.9 Fever, unspecified
CPT/HCPCS: 0241U; 36415; 71045; 80053; 83735; 84484; 85025; 96360; 99284; 99285

== ENCOUNTER → 2024-04-22 16:48 | Outpatient (BNV) | payer BC, SELFPAY | PROVIDERS: Emergency Provider Emergency Medicine; PCP Nurse Practitioner Family; Visit Provider Radiology Diagnostic Radiology | DX: R07.9 Chest pain, unspecified (principal) | CPT/HCPCS: 71045 ==

== ENCOUNTER 2024-05-10 06:48 | Outpatient (REF) | payer BC, SELFPAY ==
[2024-05-10 06:58] LABS: MANUAL DIFF FLAG NO
[2024-05-10 07:49] LABS: Basophils Percent Auto 0.6 % (0-2); Eosinophils Absolute Auto 0.1 X10*3/uL (0.0-0.4); Eosinophils Percent Auto 1.7 % (0-4); Hematocrit 40.8 % (42.0-52.0); Hemoglobin 13.4 g/dl (14.0-18.0); Imm Gran Abs Auto 0.01 X10*3/uL (0.00-0.03); Imm Gran Pct Auto 0.2 % (0.0-0.4); Lymphocytes Absolute Auto 2.3 X10*3/uL (1.2-4.9); Mean Corpuscular HGB Conc 32.8 g/dl (31.0-36.0); Mean Corpuscular Hemoglobin 31.2 pg (27.0-33.0); Mean Corpuscular Volume 95.1 fL (80.0-98.0); Mean Platelet Volume 11.8 fL (9.4-12.4); Monocytes Absolute Auto 0.5 X10*3/uL (0.1-1.2); Monocytes Percent Auto 10.1 % (2-11); Neutrophils Absolute Auto 2.3 x10*3/uL (2.0-8.3); Neutrophils Percent Auto 44.4 % (45-73); Platelet Count 188 X10*3/uL (160-400); Red Blood Count 4.29 X10*6/uL (4.60-5.80); Red Cell Distribution Width 13.3 % (11.0-16.0); White Blood Count 5.3 X10*3/uL (4.8-10.8)
[2024-05-10 08:34] LABS: Appearance Urine Clear; Color Urine Yellow; Glucose Urine UA Negative (Negative); Leukocyte Esterase Urine Negative (Negative); Nitrite Urine Negative (Negative); PH 5.5 (5.0-9.0); Urine Blood Negative (Negative); Urine Ketones Negative (Negative); Urine Protein Trace mg/dL (Neg-Trace)
[2024-05-10 08:48] LABS: Alanine Aminotransferase 28 U/L (0-40); Albumin Level 4.2 g/dL (3.5-5.0); Alkaline Phosphatase 52 U/L (39-117); Anion Gap 14 (12-20); Aspartate Amino Transferase 30 U/L (5-37); Bilirubin Total 0.6 mg/dL (0.0-1.0); Blood Urea Nitrogen 16 mg/dL (9-16); Calcium 9.5 mg/dL (8.4-10.2); Carbon Dioxide 30 mmol/L (22-29); Chloride 104 mmol/L (96-108); Cholesterol 144 mg/dL (<200); Estimated Glomerular Filt Rate > 60; Glucose Fasting 91 mg/dL (60-99); HDL Cholesterol 60 mg/dL (>40); LDL Cholesterol Calculated 48 mg/dL (<100); Sodium 144 mmol/L (135-145); Total Protein 7.8 g/dL (6.5-8.0); Triglycerides 180 mg/dL (<150)
[2024-05-10 08:56] LABS: TSH reflex Free T4 2.59 uIU/mL (0.32-4.0)
== END 2024-05-10 06:49 | disposition home or self-care (01) ==
LOC: HO.LAB 06:48
PROVIDERS: PCP Nurse Practitioner Family; Visit Provider Nurse Practitioner Family
DX: I10 Essential (primary) hypertension (principal); E78.5 Hyperlipidemia, unspecified
CPT/HCPCS: 36415; 80053; 80061; 81003; 84443; 85025

== ENCOUNTER 2024-06-12 10:52 | Outpatient (AMB) | payer BC, SELFPAY ==
[2024-06-12 10:59] VITALS: BP 122/90; PULSE 63; O2SAT 94; BMI 27.3
--- NOTE | 2024-06-12 10:59 | A.OFFVIS_ITS ---
Vital Signs 06/12/24 10:59 Height 6 ft 4 in Weight 224 lb BMI 27.3 BP 122/90 H Blood Pressure Location Rt brachial Position Sitting Pulse 63 Pulse Source Pulse Oximeter Pulse Oximetry (%) 94 Oxygen Delivery Method Room Air Intake Visit Reasons: FU on back pain Development Analyst Required: No Allergies meperidine [From DEMEROL] Allergy (Unknown, Verified 06/12/24 11:04) VOMITING Pouurul-FTO-CcT Reductase Inhibitor Adverse Reaction (Intermediate, Verified 06/12/24 11:04) Muscle Pain SEASONAL ALLERGIES Allergy (Unknown, Uncoded 06/12/24 11:04) RUNNY NOSE/ITCHY EYES HPI Comments Details: The patient is a 64-year-old male presenting with chronic lower back pain and associated symptoms. The pain is persistent and exacerbated by activities such as lifting heavy objects. It radiates from the lower back down to the left leg, leading to numbness in the toes. The patient has received cortisone injections in the past, which alleviated symptoms temporarily. He indicates aggravation from physical activities like lifting and has transitioned his heavier tasks to his son due to this pain. The patient also mentions significant osteoarthritis in his hands, particularly at the base of his thumb, affecting daily tasks and hobbies, such as playing the guitar. Additionally, he recently suffered an episode of influenza, described as notably severe. - Onset and Timing: Chronic pain with unknown initiation date, exacerbated in recent years. - Quality and Character: Sharp lower back pain that radiates down the left leg. - Primary Location: Lower back. - Areas of Radiation: Radiates to left leg and toes; associated with numbness and tingling in toes. - Exacerbating Factors: Lifting heavy objects and certain physical activities. - Relieving Factors: Previous cortisone injections provided relief. - Impact on Activities: Limits ability to lift heavy objects; osteoarthritis in hands affects playing guitar and performing tasks. - Affect: No specific mood or psychological impact mentioned. - Analgesia: Relief from previous cortisone injections; inquiring about new pain medications. - Adverse Effects: No side effects of current pain management reported. - Activities of Daily Living: Pain limits lifting and playing guitar; walking is minimally limited. - Aberrant Drug-Related Behaviors: No signs of medication misuse reported. Prior: Antelmo is a very pleasant 63-year-old male who presents to the office today for evaluation management of his chronic lower back pain Patient has been suffering with this pain for many years, he denies known fall, trauma, injury He reports over the last week the pain has improved with Tylenol and rest. He is having no pain today. He wanted to continue with this appointment so that he has established care here and will facilitate treatment in the future He states his pain is mostly midline without radiation down either lower extremity. Worse with sitting and when rising from a seated position. He does endorse some numbness/tingling of the left foot but no shooting, burning, numbness, tingling or electrical pain from the back down the leg. Denies lower extremity weakness Completed physical therapy about 1 year ago with some improvement. He continues with guided home exercise program. Recent x-ray was reviewed, results as per below. Denies any recent MRI. Taking Tylenol as needed with some relief. Also using heat and rest with improvement. Many years ago he underwent cortisone injections for stenosis that relieved his pain. Denies red flag symptoms including new loss of bowel, bladder or saddle anesthesia In terms of muscle damage condition is described as pinching, cramping, crushing, aching Pain is negatively impacting patient's sleep, ability to function normally Denies current use of anticoagulants Denies implantable devices, pacemaker defibrillator Denies current use of nicotine, tobacco, of his substances. Endorses social beer intake. [facility] Medical History Lumbar spinal stenosis HTN (hypertension) PVC (premature ventricular contraction) Arterial atherosclerosis Surgical History History of bladder surgery Hx of colonoscopy Social History (Reviewed 06/12/24 @ 11:05 by Tsering Will [facility]) Housing: House Patient Tobacco Use Status: Former Tobacco user Tobacco use type: Cigarette e-Cigarette/Vaping Use: Never Used Second Hand Smoke Exposure: No service: No Current occupational status: retired Cognitive needs: No Hearing needs: No Vision needs: No Review of Systems Const Details: - Neurological: Reports intermittent numbness and tingling in the left foot. Denies fatigue. - Musculoskeletal: Reports chronic lower back pain, soreness in knees, and osteoarthritis in hands. - General: Denies leg fatigue upon walking. Physical Exam Vital Signs: Last Vital Signs Pulse 63 06/12/24 10:59 BP 122/90 H 06/12/24 10:59 Pulse Ox 94 06/12/24 10:59 Oxygen Delivery Method Room Air 06/12/24 10:59 BMI result Body Mass Index 27.3 General: awake, alert, oriented. Answers questions appropriately. Fully engaged in examination. Skin: warm, dry, intact HEENT: Normocephalic. Hearing intact. Cardiac: External chest normal in appearance. Respiratory: No cough, audible wheezing or stridor. Abdomen: without gross distension. MS: No obvious swelling or deformities. Able to transition from sit to stand unassisted. SLR positive left Bilateral lower extremity strength 5/5 Nontender over bilateral PSIS Neurological: Oriented to person, place, time and situation. Thought process intact. No gait abnormalities appreciated. Psychiatric: Appropriate mood and affect. Good judgment and insight. Results Reviewed Results Reviewed: 03/28/24 MRI LS FINDINGS: Last rib-bearing vertebra labeled T12. Bone marrow inhomogeneity. Modic type III endplate changes, L5-S1. Modic type II endplate changes at L1-2. Multilevel marginal osteophyte formation and disc desiccation. Grade 1 anterolisthesis L4-5. Grade 1 retrolisthesis L5-S1 and to a lesser extent L1-2 and L2-3 levels. Conus medullaris ends at the inferior endplate of L1 with normal signal. T12-L1: No disc herniation. No neuroforamina stenosis. L1-2: Broad-based disc bulging. Facet joint and ligamentum flavum hypertrophy. Reduced AP diameter of the thecal sac and the neural foramina likely encroaching the exiting nerve roots. L2-3: Broad-based disc bulging. Facet joint and ligamentum flavum hypertrophy. Reduced AP diameter of the thecal sac and the neural foramina likely encroaching the neural elements. L3-4: Broad-based disc bulging. Facet joint and ligamentum flavum hypertrophy resulting in CSF effacement of the thecal sac. Bilateral neuroforamina narrowing. L4-5: Broad-based disc bulging. Facet joint and ligamentum flavum hypertrophy resulting in CSF effacement of the thecal sac. Bilateral neuroforamina narrowing. L5-S1: Broad-based disc bulging. Facet joint hypertrophy. Bilateral neuroforamina narrowing encroaching the exiting nerve roots S1 and L5 bilaterally. No prevertebral compartment hematoma, mass or fluid collection. IMPRESSION: Multilevel lumbar spondylosis, L1-S1 resulting in central spinal canal stenosis at L4-5 and L3-4 levels and to a lesser extent L2-3 and bilateral neuroforamina stenosis from L1-2 to L5-S1 more conspicuous at L2-3, L3-4 levels. 03/2024 EMG IMPRESSION: 1. This is an abnormal study. 2. There is electrodiagnostic evidence for left S1 radiculopathy. 3. There is electrodiagnostic evidence for a subacute/chronic left peroneal neuropathy at the fibular neck. 4. There is no electrodiagnostic evidence for tibial or sciatic neuropathy, lumbosacral plexopathy, or peripheral neuropathy. 02/13/24 XR/XR lumbar spine 2-3V FINDINGS: Multilevel lumbar spondylosis. Facet arthritis in the mid to lower lumbar spine. Grade 1 retrolisthesis of L1 on L2. Moderate loss of disc space height at L1-L5 levels. Severe loss of disc space height with subchondral sclerosis and degenerative change at L5-S1. IMPRESSION: Multilevel degenerative disc disease, most notable at L5-S1. Assessment & Plan Assessment & Plan (1) Spinal stenosis: Code(s): M48.00 - Spinal stenosis, site unspecified Category: Medical (2) Chronic lower back pain: Code(s): M54.50 - Low back pain, unspecified; G89.29 - Other chronic pain Category: Medical (3) Paresthesia of left lower extremity: Code(s): R20.2 - Paresthesia of skin Category: Medical Plan Will Refer to Neurospine to evaluate for severe spinal stenosis. If no planned surgical intervention proceed with the scheduling and insurance approval for a steroid injection targeting the specific spinal levels L4-5 to manage the patient's lumbar degenerative disc disease, spinal stenosis and radiculopathy effectively. The patient has received prior cortisone injections with good effectiveness, making it an integral part of the current treatment strategy, particularly in addressing debilitating pain that limits his physical capacity. The patient's case requires ongoing evaluation to confirm the efficacy of the injection upon administration, with adjustments in management based on symptom response. During the visit, I discussed with the patient the option of an upcoming steroid injection for managing his chronic lower back pain and associated lumbar radiculopathy. The procedure's benefits in reducing inflammation and pain, potential risks, and expected outcomes were thoroughly explained. Follow-up arrangements will be made once the insurance pre-authorization is complete. Regular updates will ensure responsive adjustment to his management plan according to treatment effectiveness and patient feedback. Patient was informed and verbally consented to the use of an ambient scribe for clinic note documentation during this visit. Patient Instructions: - Wait for an insurance approval call to schedule a steroid injection if no surgery planned by spine center. - Continue to avoid lifting heavy objects to prevent exacerbating pain. - Engage in regular safe movement or light physical activity as tolerated. - Observe for any changes in symptoms and report back promptly. - Contact the clinic with any new issues or questions regarding pain management. - Update your physician about any new therapies or medications you wish to explore. Coding Level of Care Code Est Pt Level 3 (58763) Complex EM visit Add On G2211 Diagnoses Spinal stenosis M48.00 Chronic lower back pain M54.50; G89.29 Paresthesia of left lower extremity R20.2
== END 2024-06-12 11:44 | disposition home or self-care (01) ==
LOC: HO.PMC 10:53
PROVIDERS: PCP Nurse Practitioner Family; Visit Provider Registered Nurse Emergency
DX: M48.00 Spinal stenosis, site unspecified (principal); M54.50 Low back pain, unspecified; G89.29 Other chronic pain; R20.2 Paresthesia of skin
CPT/HCPCS: 99213

== ENCOUNTER → 2024-06-12 10:52 | Outpatient (BNVA) | payer BC, SELFPAY | PROVIDERS: PCP Nurse Practitioner Family; Visit Provider Registered Nurse Emergency ==

== ENCOUNTER 2024-06-24 09:46 | Outpatient (AMB) | payer BC, SELFPAY ==
--- NOTE | 2024-06-24 09:59 | A.SPINEOV_ITS ---
Intake Visit Reasons: spinal stenosis Intake Note: Mr. Calabrese is here today c/o back pain. MRI done @ [facility]. 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 He is a pleasant 64-year-old male who comes in today with a chief complaint of low back pain and pain with ambulation. He reports this has been ongoing for the past several years, but has worsened over the past year or so. When describing his pain he runs his hands across his low back and into his bilateral thighs. He also identifies his left heel / foot as becoming numb/painful with prolonged walking. Thankfully, he is still very functional. He is able to walk for about 40 minutes at a time before stopping due to pain, and is actively completing yard work around his home. He rates his current daily pain at about 2/10. He reports that walking and increased activity exacerbates his pain. Sitting down in a recliner helps to alleviate his pain. He denies any perineal numbness or bowel/bladder issues. He reports he has tried mgpo-oie-koafcgx medications in an effort to help mitigate the pain including Tylenol and lidocaine patches/pain patches and creams. He states he is unable to take NSAIDs due to his high blood pressure, therefore has not attempted ibuprofen or Alleve. He has been to physical therapy in the past to help mitigate his pain, but states last time he went for his low back was about 3-4 years ago. He also has had injections with Dr. Willson to help mitigate his pain in the past, but can not recount the last time he went to see him. PMH: High blood pressure, high cholesterol. Social hx: Patient does not smoke, reports no substance use. Medications: See [employer] list. Allergies: Demerol, statins. Physical exam: The patient has 5/5 strength in his upper and lower extremities. He ambulates well and rises from a seated position without difficulty. He uses no assistive devices to ambulate. His right patellar reflexes 1+ hypoactive. The rest of his reflexes are 2+ intact. He has some sensational deficits to light touch described as hypoesthesia over the left heel. (-) Elise's, (-) clonus, (-) bilateral straight leg raise. Imaging review: MRI of the lumbar spine completed at [facility] shows moderate central canal stenosis and bilateral foraminal stenosis at L3-4, L4-5. This is notably worse at L3-4. There is also severe disc degeneration at L5-S1 with endplate inflammation, effacement of the thecal sac, and bilateral foraminal stenosis. Impression: Antelmo is a pleasant 64-year-old male who comes in today for evaluation of low back pain and shooting pains into his bilateral thighs with prolonged ambulation. His clinical history and presentation today are most consistent with spinal stenosis with neurogenic claudication. 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 He reports that he is not very interested in surgery at this time would like to pursue injections if possible. He reports he has had complete relief of his pain with injections in the past done at [facility]. I would like to obtain his injection records, and will refer him back to our colleagues in pain management once I review these. I believe addressing the L3-4 and L4-5 segments with interlaminar injections would likely be most beneficial for him. Thank you for allowing us to care for your patient. The total time spent with this visit with this patient was 45 minutes reviewing history, physical exam, MRI imaging review, and implementation of treatment plan or further diagnostic testing Maximino Brewer MD,PhD [facility] Coding Level of Care Code New Pt Level 4 (78070) Diagnoses Spinal stenosis, lumbar region with neurogenic claudication M48.062
== END 2024-06-24 10:48 | disposition home or self-care (01) ==
LOC: HO.HNS 09:47
PROVIDERS: PCP Nurse Practitioner Family; Referring Provider Registered Nurse Emergency; Visit Provider Physician Assistant
DX: M48.062 Spinal stenosis, lumbar region with neurogenic claudication (principal)
CPT/HCPCS: 99204

== ENCOUNTER → 2024-06-24 09:46 | Outpatient (BNVA) | payer BC, SELFPAY | PROVIDERS: PCP Nurse Practitioner Family; Referring Provider Registered Nurse Emergency; Visit Provider Physician Assistant ==

== ENCOUNTER 2024-07-11 07:04 | Outpatient (REF) | payer BC, SELFPAY ==
--- NOTE | ~2024-07-11 | FL_ITS ---
EXAMINATION: FL GUIDANCE ONLY HISTORY: M48.062 - Spinal stenosis, lumbar region with neurogenic claudication COMPARISON: None available. TECHNIQUE: Fluoroscopy time: 0.1 minutes. Cumulative Dose: 4.84 mGy. DAP: 0.0406 mGym2 Images: 2. FINDINGS: Images demonstrate a needle and contrast in the lumbar region. FL/FL guidance in treatment room IMPRESSION: Fluoroscopy during procedure. Please see procedure report for additional information. Electronically signed by: Henrik Lockwood MD 07/11/2024 03:08 PM EDT
--- OUTSIDE RECORDS SUMMARY | 2024-07-11 07:07 | XMS_ITS | Encounter Summary ---
Author Organization [facility] Address [address] [place] [address] Care Team Providers Care Polysomnography Tech Name Role Phone Name, Les MOORE Primary Care Provider Scarlett Lynn MD Primary Care Provider Jesse Muñoz Primary Care Provider [phone] Reason for Visit * Reason Onset Date Comments APPOINTMENT 06/04/2013 Encounter Details Date Type Department Care Team Description 06/04/2013 Telephone Adult Medicine [address] [address] Name, MD Les APPOINTMENT Social History Tobacco Use Types Packs/Day Years Used Date Smoking Tobacco: Former Comments:1998 Alcohol Use Standard Drinks/Week Comments Yes 8.3 (1 standard drink = 0.6 oz p ure alcohol) couple beers/day-varies Sex Assigned at Date Recorded Not on file documented as of this encounter Miscellaneous Notes * Telephone Encounter - Brenda Juarez - 06/04/2013 1:11 PM EDT Left voicemail for pt to schedule future appt with PCP, as pt has not been seen by PCP in 2013, as per Emilia. documented in this encounter Plan of Treatment Not on file documented as of this encounter Visit Diagnoses Not on filedocumented in this encounter Care Teams Polysomnography Tech Relationship Specialty Start Date End Date Name, MD Les PCP - General 07/05/1997 02/18/15 Scarlett Trevino MD PCP - General Internal Medicine 02/19/15 08/05/21 Jesse Marrero [address] [place] [id number] PCP - General Internal Medicine 08/06/21 documented as of this encounter
--- OUTSIDE RECORDS SUMMARY | 2024-07-11 07:07 | XMS_ITS | Encounter Summary ---
Author Organization [facility] Address [address] [place] [address] Care Team Providers Care Milling Planer Operator Name Role Phone Scarlett Trevino MD Primary Care Provider Jesse Muñoz Primary Care Provider [phone] Encounter Details Date Type Department Care Team Description 08/28/2018 Teletype Or Varitype Keyboard Operator Report Medical Records [address] [place] [address] Conrad Metzger Social History Tobacco Use Types [...] on filedocumented in this encounter Care Teams Milling Planer Operator Relationship Specialty Start Date End Date Scarlett Trevino MD PCP - General Internal Medicine 02/19/15 08/05/21 Jesse Marrero [address] [place] [id number] PCP - General Internal Medicine 08/06/21 documented as of this encounter
--- OUTSIDE RECORDS SUMMARY | 2024-07-11 07:07 | XMS_ITS | Encounter Summary ---
Author Organization [facility] Address [address] [place] [address] Care Team Providers Care Scenario Writer Name Role Phone Scarlett Trevino MD Primary Care Provider Jesse Muñoz Primary Care Provider [phone] Reason for Visit * Reason Onset Date Comments injection 12/10/2015 Encounter Details Date Type Department Care Team Description 12/10/2015 Telephone Physiatry - [address] [address] Manan Willson DO injection Social History Tobacco [...] unspecified documented in this encounter Care Teams Scenario Writer Relationship Specialty Start Date End Date Scarlett Trevino MD PCP - General Internal Medicine 02/19/15 08/05/21 Jesse Marrero [address] [place] [id number] PCP - General Internal Medicine 08/06/21 documented as of this encounter
--- OUTSIDE RECORDS SUMMARY | 2024-07-11 07:07 | XMS_ITS | Encounter Summary ---
Author Organization [facility] Address [address] [place] [address] Care Team Providers Care Insurance Writer Name Role Phone Scarlett Trevino MD Primary Care Provider Jesse Muñoz Primary Care Provider [phone] Reason for Visit * Reason Onset Date Comments Provider Call Back 01/23/2018 Encounter Details Date Type Department Care Team Description 01/23/2018 Telephone Adult Medicine [address] [address] Scarlett Trevino MD Provider Call Back Social History Tobacco Use Types Packs/Day Years Used Date Smoking Tobacco: Former Smokeless Tobacco: Former Chew Comments:1999 Alcohol Use Standard Drinks/Week Comments Yes 8.3 (1 standard drink = 0.6 oz p ure alcohol) couple beers/day-varies Sex Assigned at Date Recorded Not on file documented as of this encounter Miscellaneous Notes * Telephone Encounter - Rosa Zayas L.P.N. - 01/23/2018 9:11 AM EST Pt needs a form filled out for howard ,he is faxing over a letter with form to [phone] * Telephone Encounter - Aleena Kelly - 01/23/2018 8:59 AM EST Caller requesting call back from provider: Is the caller the patient? YES If caller is not the patient, what is the callers name? N/A Callers relationship to patient? N/A If person calling is not the patient themselves, is there a verbal release in FYI or permanent comments for this person: NO Reason for call back: Patient requesting to speak with Dr. Trevino regarding his arthritidis. Caller offered to speak with the nurse for assistance: YES Response: Patient offered to speak with nurse for assistance and patient agreed. Message forwarded to nurse. documented in this encounter Plan of Treatment Not on file documented as of this encounter Visit Diagnoses Not on filedocumented in this encounter Care Teams Insurance Writer Relationship Specialty Start Date End Date Scarlett Trevino MD PCP - General Internal Medicine 02/19/15 08/05/21 Jesse Marrero [address] [place] [id number] PCP - General Internal Medicine 08/06/21 documented as of this encounter
--- OUTSIDE RECORDS SUMMARY | 2024-07-11 07:07 | XMS_ITS | Encounter Summary ---
Author Organization [facility] Address [address] [place] [address] Care Team Providers Care Cuff Setter Name Role Phone Scarlett Trevino MD Primary Care Provider Jesse Muñoz Primary Care Provider [phone] Encounter Details Date Type Department Care Team Description 11/12/2015 Roofer Applicator Report Medical Records [address] [place] [address] Kaycee Vogel MD Social History Tobacco Use [...] on filedocumented in this encounter Care Teams Cuff Setter Relationship Specialty Start Date End Date Scarlett Trevino MD PCP - General Internal Medicine 02/19/15 08/05/21 Jesse Marrero [address] [place] [address] PCP - General Internal Medicine 08/06/21 documented as of this encounter
--- OUTSIDE RECORDS SUMMARY | 2024-07-11 07:07 | XMS_ITS | Clinical Summary ---
Author Organization [facility] Address [address] [place] [address] Care Team Providers Care Artificial Intelligence Specialist Name Role Phone Homermiguel Jesse Bunch Primary Care Provider [phone] Allergies Active Allergy Reactions Severity Noted Date Comments Meperidine Hcl Nausea and Vomiting 06/13/2006 Atorvastatin Calcium 10/08/2007 Muscle pain Simvastatin 12/15/2014 Muscle cramps Medications Medication Sig Dispensed Refills Start Date End Date Status Sildenafil Citrate (VIAGRA) 50 MG TABS 1 TABLET DAILY NEEDED 6 Tab 0 07/23/2009 Active fluticasone 50 MCG/ACT nasal spray TAKE 2 SPRAYS IN EACH NOSTRIL ONCE A DAY 1 Bottle 0 06/10/2015 Active ALBUTEROL SULFATE 108 (90 BASE) MCG/ACT Aero Soln Inhale 1 Puff into the lungs every 6 hours as needed for Cough, Wheezing or Shortness of Breath. 1 Inhaler 0 09/15/2018 Active Diclofenac Sodium 1 % Gel Apply 4g to affected area on legs up to 4 times daily as needed for pain 1 Tube 5 12/14/2019 Active Active Problems Problem Noted Date Spinal stenosis of lumbar region without neurogenic claudication 12/08/2017 ED (erectile dysfunction) 07/23/2009 Allergic rhinitis 04/03/2007 Pure hypercholesterolemia 05/03/2006 History of dysplastic nevus 01/16/2006 Overview: Dysplastic nevi 3/04 right anterior thorax (severe atypia) Mult. moderately and mildly dysplastic nevi Resolved Problems Problem Noted Date Resolved Date Common cold 05/14/2007 10/17/2007 Chest tightness 04/03/2007 04/03/2007 Immunizations Name Administration Dates Next Due COVID-19 (Pfizer) Pt Reported 03/12/2021 Influenza (> 6 Months) 02/10/2021,12/09/2019,03/2018 PPD-RBMG 09/28/2009 Shingrix (Recombinant zoster vaccine) 01/03/2020 Tdap 04/03/2007 Family History * Patient is adopted Medical History Relation Name Comments adopted Other Relation Name Status Comments Other Social History Tobacco Use Types Packs/Day Years Used Date Smoking Tobacco: Former Smokeless Tobacco: Former Chew Comments:1998 Alcohol Use Standard Drinks/Week Comments Yes 8.3 (1 standard drink = 0.6 oz p ure alcohol) couple beers/day-varies Sex Assigned at Date Recorded Not on file Last Filed Vital Signs Vital Sign Reading Time Taken Comments Blood Pressure 132/78 12/15/2020 10:56 AM EDT Pulse 72 12/15/2020 10:56 AM EDT Temperature 36.8 ??C (98.3 ??F) 04/09/2019 2:10 PM ES T Respiratory Rate 16 12/15/2020 10:56 AM EDT Oxygen Saturation 97% 03/21/2014 9:39 AM EST Inhaled Oxygen Concentration - - Weight 98.9 kg (218 lb) 12/15/2020 10:56 AM EDT Height 193 cm (6' 4 ) 12/15/2020 10:56 AM EDT Body Mass Index 26.54 12/15/2020 10:56 AM EDT Plan of Treatment Health Maintenance Due Date Last Done Comments BASELINE HEALTH EXAM 40-64 01/02/202001/01, 08/13/2013, 08/13/2013, Additional history exists SHINGLES VACCINE (2 of 2) 02/28/2020 01/03/2020 COLON CANCER SCREENING 03/21/2022 03/21/2012 CHOLESTEROL SCREENING 01/01/2023 01/01/2018 , 08/13/2013, 10/10/2007, Additional history exists Covid-19 Vaccine (2 - 2022-2 4 season) 2023 03/12/2021 BMI CHECK/ADVISE 03/13/2024 12/14/2019, , 08/13/2013 INFLUENZA (Season Ended) 2024 021, 12/09/2019, 01/11/2019, Additional history exists PNEUMOCOCCAL VACCINE FOR HIG H RISK PATIENTS (#1) 2026 DTAP/TDAP/TD (3 - Td or Tdap) 07/13/2026 (Completed), 04/03/2007 HEPATITIS C SCREENING Completed 08/13/2013 Care Teams Artificial Intelligence Specialist Relationship Specialty Start Date End Date Jesse Marrero [address] [place] [id number] PCP - General Internal Medicine 08/06/21
--- OUTSIDE RECORDS SUMMARY | 2024-07-11 07:07 | XMS_ITS | Encounter Summary ---
Author Organization [facility] Address [address] [place] [address] Care Team Providers Care Metal Work Duct Installer Name Role Phone Name, Les MOORE Primary Care Provider Scarlett Lynn MD Primary Care Provider Jesse Muñoz Primary Care Provider [phone] Reason for Visit * Reason Onset Date Comments Tariff Clerk Feedback 11/25/2013 [facility] Encounter Details Date Type Department Care Team Description 11/25/2013 Telephone Adult Medicine [address] [address] Name, MD Les Tariff Clerk Feedback ([facility]) Social History Tobacco Use Types Packs/Day Years Used Date Smoking Tobacco: Former Comments:1999 Alcohol Use Standard Drinks/Week Comments Yes 8.3 (1 standard drink = 0.6 oz p ure alcohol) couple beers/day-varies Sex Assigned at Date Recorded Not on file documented as of this encounter Miscellaneous Notes * Telephone Encounter - Mahogany Borjas - 11/26/2013 2:10 PM EDT * Telephone Encounter - Ladonna Tao - 11/25/2013 11:57 AM EDT MRI authorization are obtained by ordering provider, if [facility] is ordering the MRI they would obtain authorization. * Telephone Encounter - Patricia Rickie - 11/25/2013 11:16 AM EDT Did you verify this is patients current insurance? YES Payor: [employer] / Plan: HMO $20 [place] / Product Type: HMO [id number] Effective 12/11/08: [employer] will not retro referral requests over 90 days. If request is for this please instruct patient to call the 800# on their insurance card to appeal. Do not submit a request. Referrals cannot be processed if the insurance is not accurate. If the insurance listed above in red is NO BILLING INFORMATION FOUND FOR THIS ENCOUTNER The patients correct insurance must be obtained and registered in [facility] or their referral can not be processed. Who is calling to request this referral? patient If the caller is not the patient, what is their name? N/A FIRST and LAST NAME of SPECIALIST PATIENT is seeing: [facility] What specialty is this? orthopedics DIAGNOSIS Patient is being seen for (Not a body part or a procedure): needs mri Have you seen this SPECIALIST for this PROBLEM/DX before?NO If YES, when: Have you checked REVIEW or the APPT DESK to see if this referral has already been done or has visits left? NO Who referred the patient to this specialty? Is this visit:Initial Visit Address of Specialist:[address] [place] Phone # of Specialist: Fax #: (if applicable): Does patient have an appointment scheduled?: NO Date of appointment- (including a retro-request): needs ref first for MRI Is this appointment related to: Not MVA, WC or Surgery related documented in this encounter Plan of Treatment Not on file documented as of this encounter Visit Diagnoses Not on filedocumented in this encounter Care Teams Metal Work Duct Installer Relationship Specialty Start Date End Date Name, MD Les PCP - General 07/05/1997 02/18/15 Scarlett Trevino MD PCP - General Internal Medicine 02/19/15 08/05/21 Jesse Marrero [address] [place] [id number] PCP - General Internal Medicine 08/06/21 documented as of this encounter
--- OUTSIDE RECORDS SUMMARY | 2024-07-11 07:07 | XMS_ITS | Encounter Summary ---
Author Organization [facility] Address [address] [place] [address] Care Team Providers Care Asphalt Surface Heater Operator Name Role Phone Name, Les MOORE Primary Care Provider Scarlett Lynn MD Primary Care Provider Jesse Muñoz Primary Care Provider [phone] Reason for Visit * Reason Comments REFERRAL rm webb Encounter Details Date Type Department Care Team Description 07/31/2002 Telephone Adult Medicine [address] [address] Henrik Mary [address] [place] [id number] REFERRAL (rm webb) Social History Tobacco Use Types Packs/Day Years Used Date Smoking Tobacco: Never Assessed Sex Assigned at Date Recorded Not on file documented as of this encounter Miscellaneous Notes * Telephone Encounter - 07/31/2002 1:33 PM EDTCALL RECEIVED. Contact: self [phone] Payor: [facility]: [id number] Product Type: O Sas-dgm-N[address]kw[address] Dr. Henrik Mary documented in this encounter Plan of Treatment Not on file documented as of this encounter Visit Diagnoses Not on filedocumented in this encounter Care Teams Asphalt Surface Heater Operator Relationship Specialty Start Date End Date Name, MD Les PCP - General 07/05/1997 02/18/15 Scarlett Trevino MD PCP - General Internal Medicine 02/19/15 08/05/21 Jesse Marrero [address] [place] [address] PCP - General Internal Medicine 08/06/21 documented as of this encounter
--- OUTSIDE RECORDS SUMMARY | 2024-07-11 07:07 | XMS_ITS | Encounter Summary ---
Author Organization [facility] Address [address] [place] [address] Care Team Providers Care Hanger Name Role Phone Name, Les MOORE Primary Care Provider Scarlett Lynn MD Primary Care Provider Jesse Muñoz Primary Care Provider [phone] Encounter Details Date Type Department Care Team Description 02/20/2014 SCAN Medical Records [address] [place] [address] Abstract, Provider Social History Tobacco Use Types [...] on filedocumented in this encounter Care Teams Hanger Relationship Specialty Start Date End Date Name, MD Les PCP - General 07/05/1997 02/18/15 Scarlett Trevino MD PCP - General Internal Medicine 02/19/15 08/05/21 Jesse Marrero [address] [place] [id number] PCP - General Internal Medicine 08/06/21 documented as of this encounter
== END 2024-07-11 07:05 | disposition home or self-care (01) ==
LOC: CF 07:04
PROVIDERS: Visit Provider Internal Medicine
DX: M48.062 Spinal stenosis, lumbar region with neurogenic claudication (principal)
CPT/HCPCS: 62323; J2003; J3301; Q9967

== ENCOUNTER 2024-07-11 10:16 | Outpatient (AMB) | payer BC, SELFPAY ==
[2024-07-11 10:28] VITALS: BP 130/78; PULSE 63; RESP 16; O2SAT 95
--- NOTE | 2024-07-11 10:28 | A.OFFVIS_ITS ---
Vital Signs 07/11/24 10:28 07/11/24 11:05 BP 130/78 142/88 H Blood Pressure Location Lt brachial Lt brachial Position Sitting Sitting Respiration 16 16 Pulse 63 67 Pulse Source Pulse Oximeter Pulse Oximeter Pulse Oximetry (%) 95 97 Oxygen Delivery Method Room Air Room Air Intake Visit Reasons: L3-L4 interlaminar GUIDO Log Handling Equipment Operator Required: No Allergies meperidine [From DEMEROL] Allergy (Unknown, Verified 07/11/24 10:28) VOMITING Kwwmikz-ROS-SgQ Reductase Inhibitor Adverse Reaction (Intermediate, Verified 07/11/24 10:28) Muscle Pain SEASONAL ALLERGIES Allergy (Unknown, Uncoded 07/11/24 10:28) RUNNY NOSE/ITCHY EYES Medication List - Last Reconciled 07/11/24 by Alona Salazar LPN evolocumab (Repatha SureClick) 140 mg subcut Q2W losartan-hydrochlorothiazide 100-12.5 mg 1 tab PO DAILY 90 days HPI HPI L3-L4 interlaminar GUIDO: Details: Patient presents for scheduled procedure. Denies any recent cough, cold, infection, fever or other significant changes in medical history since last office visit. [facility] Medical History Lumbar spinal stenosis HTN (hypertension) PVC (premature ventricular contraction) Arterial atherosclerosis Surgical History History of bladder surgery Hx of colonoscopy Social History Housing: House Patient Tobacco Use Status: Former Tobacco user Tobacco use type: Cigarette e-Cigarette/Vaping Use: Never Used Second Hand Smoke Exposure: No service: No Current occupational status: retired Cognitive needs: No Hearing needs: No Vision needs: No Physical Exam Vital Signs: Last Vital Signs Pulse 67 07/11/24 11:05 Resp 16 07/11/24 11:05 BP 142/88 H 07/11/24 11:05 Pulse Ox 97 07/11/24 11:05 Oxygen Delivery Method Room Air 07/11/24 11:05 Office Procedures AMB Joint Injection/Aspiration Joint Injection/Aspiration Details: Interlaminar epidural steroid injection, L3-4, left parasaggital After obtaining written consent, pre-procedure blood pressure and heart rate were stable and recorded in the nursing record. The patient was placed in the prone position. The lumbar area was widely prepped with chloraprep and draped in sterile fashion. Fluoroscopic guidance was used to identify the desired interlaminar space and for needle placement. Subcutaneous 0.5% lidocaine was used to anesthetize the skin overlying the target. A 20-gauge Johnson needle was advanced to the epidural space using loss of resistance to contrast technique under fluoroscopic AP and contralateral oblique views. There was no evidence of heme or CSF and no paresthesias were elicited with needle placement. Confirmation of epidural needle placement was performed with 1cc of omnipaque 180. Next 3 ml 0.5% lidocaine mixed with 80 mg triamcinilone was administered epidurally with no pain elicited on injection. The needle tract tubing was then cleared with 1 ml of 0.5% lidocaine. The needle was removed, skin cleansed and a sterile bandage was applied. The patient tolerated the procedure well and no complications were encountered. Following the procedure the patient's vital signs were stable. The patient was discharged home in good condition with post-procedural instructions. Time Out: Immediately prior to the procedure, the following was verbally confirmed that there is a signed consent form and that the correct patient, planned procedure, site and side are consistent with documentation and that necessary equipment and/or blood products are available prior to the start of the case. Complications: none EBL: <2 cc Coding 61176 - Caudal/Lumbar Epidural/Interlaminar with fluoroscopy Procedure code (CPT) selection complete Assessment & Plan Assessment & Plan (1) Spinal stenosis, lumbar region with neurogenic claudication: Code(s): M48.062 - Spinal stenosis, lumbar region with neurogenic claudication Category: Medical (2) Left lumbar radiculitis: Code(s): M54.16 - Radiculopathy, lumbar region Category: Medical Plan Patient is status post left parasagittal interlaminar L3-4 GUIDO. Patient tolerated procedure well and was discharged home in stable condition with discharge instructions. All questions were answered. We will follow-up via telephone or in clinic to assess response to therapy. A follow-up appointment was made during today's visit. Orders: Orders XR cervical spine w flex/ext Today Abby Camara APRN, INTERNET MARKETING DIRECTOR M54.2 - Cervicalgia FL guidance in treatment room Today Abby Camara APRN, INTERNET MARKETING DIRECTOR M48.062 - Spinal stenosis, lumbar region with neurogenic claudication AMB Joint Injection/Aspiration Today Franky Brasher MD M48.062 - Spinal stenosis, lumbar region with neurogenic claudication, M54.16 - Radiculopathy, lumbar region Coding Level of Care Code Procedure Only Diagnoses Spinal stenosis, lumbar region with neurogenic claudication M48.062 Left lumbar radiculitis M54.16 CPT Codes Coding - Joint 11: 64279 - Caudal/Lumbar Epidural/Interlaminar with fluoroscopy ([id number])
[2024-07-11 11:05] VITALS: BP 142/88; PULSE 67; RESP 16; O2SAT 97
== END 2024-07-11 11:05 | disposition home or self-care (01) ==
LOC: HO.PMCPRC 10:16
PROVIDERS: PCP Nurse Practitioner Family; Visit Provider Internal Medicine
DX: M48.062 Spinal stenosis, lumbar region with neurogenic claudication (principal); M54.16 Radiculopathy, lumbar region
CPT/HCPCS: 62323

== ENCOUNTER 2024-07-15 09:24 | Outpatient (REF) | payer BC, SELFPAY ==
--- NOTE | ~2024-07-15 | XR_ITS ---
CLINICAL HISTORY: M54.2 - Cervicalgia 7 views cervical spine Comparison: None Findings: Vertebral body heights are grossly maintained. Straightening of the normal cervical lordosis. Severe multilevel spondylosis with disc space narrowing, endplate sclerosis, osteophytosis and facet arthropathy, most notably at C5-C6 and C6-C7 levels. Oblique views demonstrate moderate bilateral neural foraminal narrowings at these levels. Flexion and extension views demonstrate no evidence of instability. IMPRESSION: No evidence of acute fracture or traumatic listhesis of the cervical spine. Severe multilevel spondylosis, most notably at C5-C6 and C6-C7 levels with moderate bilateral neural foraminal narrowings. No evidence of instability. This document has been electronically signed by: Go Marcos MD on 07/15/2024 22:47:19
[2024-07-15 10:24] LABS: MANUAL DIFF FLAG NO
[2024-07-15 10:56] LABS: Eosinophils Percent Auto 0.2 % (0-4); Hematocrit 42.7 % (42.0-52.0); Hemoglobin 14.2 g/dl (14.0-18.0); Imm Gran Abs Auto 0.02 X10*3/uL (0.00-0.03); Imm Gran Pct Auto 0.4 % (0.0-0.4); Immature Retic Fraction 6.9 % (2.3-13.4); Lymphocytes Percent Auto 17.4 % (20-40); Mean Corpuscular HGB Conc 33.3 g/dl (31.0-36.0); Mean Corpuscular Hemoglobin 32.1 pg (27.0-33.0); Mean Corpuscular Volume 96.6 fL (80.0-98.0); Mean Platelet Volume 11.5 fL (9.4-12.4); Monocytes Absolute Auto 0.7 X10*3/uL (0.1-1.2); Monocytes Percent Auto 11.6 % (2-11); Neutrophils Percent Auto 70.4 % (45-73); Platelet Count 163 X10*3/uL (160-400); Red Blood Count 4.42 X10*6/uL (4.60-5.80); Red Cell Distribution Width 12.6 % (11.0-16.0); Reticulocyte Percent 1.3 % (0.5-1.8); Reticulocytes Absolute 0.056 X10*6/uL (0.026-0.095); White Blood Count 5.6 X10*3/uL (4.8-10.8)
[2024-07-15 11:58] LABS: Iron 93 mcg/dL (45-160); Lactate Dehydrogenase 181 U/L (118-273); Percent Iron Saturation 31 % (15-50); Total Iron Binding Capacity 297 mcg/dL (228-428); Unsaturated Iron Binding 204 ug/dL
[2024-07-15 12:12] LABS: Ferritin 193 ng/mL (20-250)
[2024-07-15 12:34] LABS: Folate 7.8 ng/mL (> or = 4.0); Vitamin B12 547 pg/mL (200-900)
[2024-07-16 13:09] LABS: Hematocrit 43.8 % (38.5-50.0); Hemoglobin 14.7 g/dL (13.2-17.1); MCH 32.4 pg (27.0-33.0); MCV 96.5 fL (80.0-100.0); RBC 4.54 Million/uL (4.20-5.80); RDW 12.4 % (11.0-15.0)
== END 2024-07-15 09:25 | disposition home or self-care (01) ==
LOC: HO.XRAY 09:24
PROVIDERS: Absent Provider Nurse Practitioner Family; PCP Nurse Practitioner Family; Visit Provider Registered Nurse Emergency
DX: M54.2 Cervicalgia (principal); D64.9 Anemia, unspecified; Z12.5 Encounter for screening for malignant neoplasm of prostate
CPT/HCPCS: 36415; 72052; 82607; 82728; 82746; 83020; 83540; 83615; 84153; 85014; 85018; 85025; 85041; 85045

== ENCOUNTER → 2024-07-15 09:30 | Outpatient (BNV) | payer BC, SELFPAY | PROVIDERS: Absent Provider Nurse Practitioner Family; PCP Nurse Practitioner Family; Visit Provider Student in an Organized Health Care Education/Training Program | DX: M47.812 Spondylosis without myelopathy or radiculopathy, cervical region (principal) | CPT/HCPCS: 72052 ==

== ENCOUNTER 2024-07-17 10:15 | Outpatient (AMB) | payer BC, SELFPAY ==
[2024-07-17 10:35] VITALS: BP 154/96; PULSE 87; O2SAT 96; BMI 26.4
--- NOTE | 2024-07-17 10:35 | MHC.OFFVIS ---
Vital Signs 07/17/24 10:35 Height 6 ft 4 in Weight 217 lb BMI 26.4 BP 154/96 H Blood Pressure Location Rt brachial Position Sitting Pulse 87 Pulse Source Pulse Oximeter Pulse Oximetry (%) 96 Oxygen Delivery Method Room Air Intake Visit Reasons: FU patient req (numbness in hands) Indian Nanny Required: No Allergies meperidine [From DEMEROL] Allergy (Unknown, Verified 07/17/24 10:36) VOMITING Qfpgozd-MNR-XtD Reductase Inhibitor Adverse Reaction (Intermediate, Verified 07/17/24 10:36) Muscle Pain SEASONAL ALLERGIES Allergy (Unknown, Uncoded 07/17/24 10:36) RUNNY NOSE/ITCHY EYES Medication List - Last Reconciled 07/17/24 by Ava Upton, GENERAL CAR YARD SUPERVISOR evolocumab (Repathraul [place]) 140 mg subcut Q2W losartan-hydrochlorothiazide 100-12.5 mg 1 tab PO DAILY 90 days HPI Comments Details: The patient is a 64-year-old male presenting with pain management concerns related to previously diagnosed lumbar and cervical radiculopathy and osteoarthritis. He reports substantial relief from a lumbar spine steroid injection performed 07/11/24, describing an 80% reduction in symptoms. Stretching exercises have notably ameliorated cervical radicular symptoms, specifically reducing hand numbness. He describes osteoarthritis in the spine as non-bothersome without significant activity, moderately managed through exercise and activity adjustments. Recent x-ray reviewed, results as per below - Onset: Initial lumbar and cervical radiculopathy addressed; Weekly improvement post-injection. - Quality: Lumbar radiculopathy: Shooting and numbness especially post-exertion; Cervical radiculopathy: Numbness and tingling in hands, improved with exercises. - Location: Lumbar spine, cervical spine, hand numbness. - Exacerbating Factors: Physical activity, heavy lifting, yard work. - Relieving Factors: Steroid injections, stretching exercises, reduced physical strain. - Interference: Affects yard work activities, necessitates reduced physical exertion. - Affect: Patient feels really good after lumbar TFESI. - Analgesia: Steroid injection improved pain significantly (80% reduction). - Adverse Effects: Minimal, a slight flush noted next day post-injection. - Activities of Daily Living: Yard work causes some numbness return, otherwise well-tolerated pain levels. - Aberrant Drug Related Behaviors: None reported or observed. [facility] Medical History Lumbar spinal stenosis HTN (hypertension) PVC (premature ventricular contraction) Arterial atherosclerosis Surgical History History of bladder surgery Hx of colonoscopy Social History Housing: House Patient Tobacco Use Status: Former Tobacco user Tobacco use type: Cigarette e-Cigarette/Vaping Use: Never Used Second Hand Smoke Exposure: No service: No Current occupational status: retired Cognitive needs: No Hearing needs: No Vision needs: No Review of Systems Const Details: - Musculoskeletal: Reports back pain improvement, minor hand numbness post-activity. - Neurological: Reports improvement in hand numbness; Denies persistent weakness or severe numbness. Physical Exam Vital Signs: Last Vital Signs Pulse 87 07/17/24 10:35 BP 154/96 H 07/17/24 10:35 Pulse Ox 96 07/17/24 10:35 Oxygen Delivery Method Room Air 07/17/24 10:35 BMI result Body Mass Index 26.4 General: awake, alert, oriented. Answers questions appropriately. Fully engaged in examination. Skin: warm, dry, intact HEENT: Normocephalic. Hearing intact. Cardiac: External chest normal in appearance. Respiratory: No cough, audible wheezing or stridor. Abdomen: without gross distension. MS: No obvious swelling or deformities. Able to transition from sit to stand unassisted. Neurological: Oriented to person, place, time and situation. Thought process intact. No gait abnormalities appreciated. Psychiatric: Appropriate mood and affect. Good judgment and insight. Results Reviewed Results Reviewed: 07/15/24 Findings: Vertebral body heights are grossly maintained. Straightening of the normal cervical lordosis. Severe multilevel spondylosis with disc space narrowing, endplate sclerosis, osteophytosis and facet arthropathy, most notably at C5-C6 and C6-C7 levels. Oblique views demonstrate moderate bilateral neural foraminal narrowings at these levels. Flexion and extension views demonstrate no evidence of instability. IMPRESSION: No evidence of acute fracture or traumatic listhesis of the cervical spine. Severe multilevel spondylosis, most notably at C5-C6 and C6-C7 levels with moderate bilateral neural foraminal narrowings. No evidence of instability. 03/28/24 MRI LS FINDINGS: Last rib-bearing vertebra labeled T12. Bone marrow inhomogeneity. Modic type III endplate changes, L5-S1. Modic type II endplate changes at L1-2. Multilevel marginal osteophyte formation and disc desiccation. Grade 1 anterolisthesis L4-5. Grade 1 retrolisthesis L5-S1 and to a lesser extent L1-2 and L2-3 levels. Conus medullaris ends at the inferior endplate of L1 with normal signal. T12-L1: No disc herniation. No neuroforamina stenosis. L1-2: Broad-based disc bulging. Facet joint and ligamentum flavum hypertrophy. Reduced AP diameter of the thecal sac and the neural foramina likely encroaching the exiting nerve roots. L2-3: Broad-based disc bulging. Facet joint and ligamentum flavum hypertrophy. Reduced AP diameter of the thecal sac and the neural foramina likely encroaching the neural elements. L3-4: Broad-based disc bulging. Facet joint and ligamentum flavum hypertrophy resulting in CSF effacement of the thecal sac. Bilateral neuroforamina narrowing. L4-5: Broad-based disc bulging. Facet joint and ligamentum flavum hypertrophy resulting in CSF effacement of the thecal sac. Bilateral neuroforamina narrowing. L5-S1: Broad-based disc bulging. Facet joint hypertrophy. Bilateral neuroforamina narrowing encroaching the exiting nerve roots S1 and L5 bilaterally. No prevertebral compartment hematoma, mass or fluid collection. IMPRESSION: Multilevel lumbar spondylosis, L1-S1 resulting in central spinal canal stenosis at L4-5 and L3-4 levels and to a lesser extent L2-3 and bilateral neuroforamina stenosis from L1-2 to L5-S1 more conspicuous at L2-3, L3-4 levels. 03/2024 EMG IMPRESSION: 1. This is an abnormal study. 2. There is electrodiagnostic evidence for left S1 radiculopathy. 3. There is electrodiagnostic evidence for a subacute/chronic left peroneal neuropathy at the fibular neck. 4. There is no electrodiagnostic evidence for tibial or sciatic neuropathy, lumbosacral plexopathy, or peripheral neuropathy. 02/13/24 XR/XR lumbar spine 2-3V FINDINGS: Multilevel lumbar spondylosis. Facet arthritis in the mid to lower lumbar spine. Grade 1 retrolisthesis of L1 on L2. Moderate loss of disc space height at L1-L5 levels. Severe loss of disc space height with subchondral sclerosis and degenerative change at L5-S1. IMPRESSION: Multilevel degenerative disc disease, most notable at L5-S1. Assessment & Plan Assessment & Plan (1) Spinal stenosis, lumbar region with neurogenic claudication: Code(s): M48.062 - Spinal stenosis, lumbar region with neurogenic claudication Category: Medical (2) Left lumbar radiculitis: Code(s): M54.16 - Radiculopathy, lumbar region Category: Medical (3) Cervical spondylosis: Code(s): M47.812 - Spondylosis without myelopathy or radiculopathy, cervical region Category: Medical Plan Management of lumbar radiculopathy maintains current improvement with previous interventions, with patient understanding regarding treatment frequency and insurance guidelines. Cervical radiculopathy is effectively being addressed through physical therapy exercises, with discussions regarding activity limitations to avoid exacerbation of symptoms. Arthritis, notably significant in imaging, requires continued conservative management with recommendations for analgesics as needed and adjustments in physical activity to maintain function. Ongoing monitoring, effectively balancing the need for invasive procedures, ensures suitable patient outcomes without necessitating surgical intervention at this time. During our discussion, we reviewed the management of lumbar radiculopathy via steroid injections, noting an excellent response with substantial symptom improvement. I explained insurance limitations and the importance of pacing such interventions at intervals of at minimum every three months, conditions permitting, to maintain coverage. For cervical radiculopathy, we focused on the importance of physical therapy and self-directed exercises, contributing significantly to symptom improvement as confirmed by the patient. We also discussed arthritis management, advising pharmacological support alongside remaining active within tolerable limits. Options and potential needs for injections have been thoroughly discussed, covering benefits and risks associated. We concluded with strategies that emphasize non-invasive management while providing reassurance about potential further interventions if condition advancement occurs. Patient was informed and verbally consented to the use of an ambient scribe for clinic note documentation during this visit. Patient Instructions: - Continue stretching exercises; engage as instructed by provider. - Use Tylenol or ibuprofen for pain control as needed. - Avoid heavy lifting or intensive physical work that exacerbates symptoms. - Return for reevaluation if pain significantly worsens. Coding Level of Care Code Est Pt Level 3 (87106) Complex EM visit Add On G2211 Diagnoses Spinal stenosis, lumbar region with neurogenic claudication M48.062 Left lumbar radiculitis M54.16 Cervical spondylosis M47.812
== END 2024-07-17 10:52 | disposition home or self-care (01) ==
LOC: HO.PMC 10:16
PROVIDERS: PCP Nurse Practitioner Family; Visit Provider Registered Nurse Emergency
DX: M48.062 Spinal stenosis, lumbar region with neurogenic claudication (principal); M54.16 Radiculopathy, lumbar region; M47.812 Spondylosis without myelopathy or radiculopathy, cervical region
CPT/HCPCS: 99213

== ENCOUNTER → 2024-07-17 10:15 | Outpatient (BNVA) | payer BC, SELFPAY | PROVIDERS: PCP Nurse Practitioner Family; Visit Provider Registered Nurse Emergency ==

== ENCOUNTER 2024-08-07 09:11 | Outpatient (AMB) | payer BC, SELFPAY ==
--- NOTE | 2024-08-07 09:20 | MHC.OFFVIS ---
Vital Signs 08/07/24 09:22 Weight 217 lb BP 169/94 H Blood Pressure Location Rt brachial Position Sitting Respiration 20 Pulse Oximetry (%) 97 Oxygen Delivery Method Room Air Intake Visit Reasons: s/p L3-L4 interlaminar GUIDO Health Care Law Specialist Required: No Allergies meperidine [From DEMEROL] Allergy (Unknown, Verified 08/07/24 09:24) VOMITING Lvvwxdp-YHA-AlU Reductase Inhibitor Adverse Reaction (Intermediate, Verified 08/07/24 09:24) Muscle Pain SEASONAL ALLERGIES Allergy (Unknown, Uncoded 07/17/24 10:36) RUNNY NOSE/ITCHY EYES HPI Comments Details: Patient presents back to the office today for follow-up, 1 month status post L3-4 interlaminar GUIDO Reports 85-90% pain relief with improvement in functional and mobility since the injection. Two days ago he assisted in moving a large picnic table and has had some increase in pain since then, today reported as 3/10. Prior to this injury he reports that he was feeling ?great?. Denies any untoward effects of the injection. Prior: The patient is a 64-year-old male presenting with pain management concerns related to previously diagnosed lumbar and cervical radiculopathy and osteoarthritis. He reports substantial relief from a lumbar spine steroid injection performed 07/11/24, describing an 80% reduction in symptoms. Stretching exercises have notably ameliorated cervical radicular symptoms, specifically reducing hand numbness. He describes osteoarthritis in the spine as non-bothersome without significant activity, moderately managed through exercise and activity adjustments. Recent x-ray reviewed, results as per below - Onset: Initial lumbar and cervical radiculopathy addressed; Weekly improvement post-injection. - Quality: Lumbar radiculopathy: Shooting and numbness especially post-exertion; Cervical radiculopathy: Numbness and tingling in hands, improved with exercises. - Location: Lumbar spine, cervical spine, hand numbness. - Exacerbating Factors: Physical activity, heavy lifting, yard work. - Relieving Factors: Steroid injections, stretching exercises, reduced physical strain. - Interference: Affects yard work activities, necessitates reduced physical exertion. - Affect: Patient feels really good after lumbar TFESI. - Analgesia: Steroid injection improved pain significantly (80% reduction). - Adverse Effects: Minimal, a slight flush noted next day post-injection. - Activities of Daily Living: Yard work causes some numbness return, otherwise well-tolerated pain levels. - Aberrant Drug Related Behaviors: None reported or observed. [facility] Medical History Lumbar spinal stenosis HTN (hypertension) PVC (premature ventricular contraction) Arterial atherosclerosis Surgical History History of bladder surgery Hx of colonoscopy Social History Housing: House Patient Tobacco Use Status: Former Tobacco user Tobacco use type: Cigarette e-Cigarette/Vaping Use: Never Used Second Hand Smoke Exposure: No service: No Current occupational status: retired Cognitive needs: No Hearing needs: No Vision needs: No Review of Systems Const All systems reviewed & are unremarkable except as noted in HPI and below Physical Exam Vital Signs: Last Vital Signs Resp 20 08/07/24 09:22 BP 169/94 H 08/07/24 09:22 Pulse Ox 97 08/07/24 09:22 Oxygen Delivery Method Room Air 08/07/24 09:22 General: awake, alert, oriented. Answers questions appropriately. Fully engaged in examination. Skin: warm, dry, intact HEENT: Normocephalic. Hearing intact. Cardiac: External chest normal in appearance. Respiratory: No cough, audible wheezing or stridor. Abdomen: without gross distension. MS: No obvious swelling or deformities. Able to transition from sit to stand unassisted. Neurological: Oriented to person, place, time and situation. Thought process intact. No gait abnormalities appreciated. Psychiatric: Appropriate mood and affect. Good judgment and insight. Results Reviewed Results Reviewed: 07/15/24 Findings: Vertebral body heights are grossly maintained. Straightening of the normal cervical lordosis. Severe multilevel spondylosis with disc space narrowing, endplate sclerosis, osteophytosis and facet arthropathy, most notably at C5-C6 and C6-C7 levels. Oblique views demonstrate moderate bilateral neural foraminal narrowings at these levels. Flexion and extension views demonstrate no evidence of instability. IMPRESSION: No evidence of acute fracture or traumatic listhesis of the cervical spine. Severe multilevel spondylosis, most notably at C5-C6 and C6-C7 levels with moderate bilateral neural foraminal narrowings. No evidence of instability. 03/28/24 MRI LS FINDINGS: Last rib-bearing vertebra labeled T12. Bone marrow inhomogeneity. Modic type III endplate changes, L5-S1. Modic type II endplate changes at L1-2. Multilevel marginal osteophyte formation and disc desiccation. Grade 1 anterolisthesis L4-5. Grade 1 retrolisthesis L5-S1 and to a lesser extent L1-2 and L2-3 levels. Conus medullaris ends at the inferior endplate of L1 with normal signal. T12-L1: No disc herniation. No neuroforamina stenosis. L1-2: Broad-based disc bulging. Facet joint and ligamentum flavum hypertrophy. Reduced AP diameter of the thecal sac and the neural foramina likely encroaching the exiting nerve roots. L2-3: Broad-based disc bulging. Facet joint and ligamentum flavum hypertrophy. Reduced AP diameter of the thecal sac and the neural foramina likely encroaching the neural elements. L3-4: Broad-based disc bulging. Facet joint and ligamentum flavum hypertrophy resulting in CSF effacement of the thecal sac. Bilateral neuroforamina narrowing. L4-5: Broad-based disc bulging. Facet joint and ligamentum flavum hypertrophy resulting in CSF effacement of the thecal sac. Bilateral neuroforamina narrowing. L5-S1: Broad-based disc bulging. Facet joint hypertrophy. Bilateral neuroforamina narrowing encroaching the exiting nerve roots S1 and L5 bilaterally. No prevertebral compartment hematoma, mass or fluid collection. IMPRESSION: Multilevel lumbar spondylosis, L1-S1 resulting in central spinal canal stenosis at L4-5 and L3-4 levels and to a lesser extent L2-3 and bilateral neuroforamina stenosis from L1-2 to L5-S1 more conspicuous at L2-3, L3-4 levels. 03/2024 EMG IMPRESSION: 1. This is an abnormal study. 2. There is electrodiagnostic evidence for left S1 radiculopathy. 3. There is electrodiagnostic evidence for a subacute/chronic left peroneal neuropathy at the fibular neck. 4. There is no electrodiagnostic evidence for tibial or sciatic neuropathy, lumbosacral plexopathy, or peripheral neuropathy. 02/13/24 XR/XR lumbar spine 2-3V FINDINGS: Multilevel lumbar spondylosis. Facet arthritis in the mid to lower lumbar spine. Grade 1 retrolisthesis of L1 on L2. Moderate loss of disc space height at L1-L5 levels. Severe loss of disc space height with subchondral sclerosis and degenerative change at L5-S1. IMPRESSION: Multilevel degenerative disc disease, most notable at L5-S1. Assessment & Plan Assessment & Plan (1) Spinal stenosis, lumbar region with neurogenic claudication: Code(s): M48.062 - Spinal stenosis, lumbar region with neurogenic claudication Category: Medical (2) Left lumbar radiculitis: Code(s): M54.16 - Radiculopathy, lumbar region Category: Medical (3) Cervical spondylosis: Code(s): M47.812 - Spondylosis without myelopathy or radiculopathy, cervical region Category: Medical Plan Patient presented to the office today for follow-up, 1 month status post L3-4 interlaminar GUIDO He reports 85-90% improvement in his pain, function and mobility since the injection with only a minor setback after some heavy lifting 2 days ago. Continue with PT, home exercise program All questions and concerns were answered, patient agrees with the plan. Follow up when pain returns, sooner if needed Coding Level of Care Code Est Pt Level 3 (34753) Complex EM visit Add On G2211 Diagnoses Spinal stenosis, lumbar region with neurogenic claudication M48.062 Left lumbar radiculitis M54.16 Cervical spondylosis M47.812
[2024-08-07 09:22] VITALS: BP 169/94; RESP 20; O2SAT 97
--- OUTSIDE RECORDS SUMMARY | 2024-08-07 09:47 | XMS_ITS | Encounter Summary ---
Author Organization [facility] Address [address] [place] [address] Care Team Providers Care Plumbing Engineer Name Role Phone Name, Lse MOORE Primary Care Provider Scarlett Lynn MD Primary Care Provider Jesse Muñoz Primary Care Provider [phone] Reason for Visit * Reason Onset Date Comments Beck Tender Feedback 11/25/2013 [facility] Encounter Details Date Type Department Care Team Description 11/25/2013 Telephone Adult Medicine [address] [address] Name, MD Les Beck Tender Feedback ([facility]) Social History Tobacco Use Types Packs/Day [...] authorization are obtained by ordering provider, if [facility] is ordering the MRI they would obtain authorization. * Telephone Encounter - Patricia Rickie - 11/25/2013 11:16 AM EDT Did you verify this is patients current insurance? YES Payor: [employer] [place] / Plan: HMO $20 SYLVIA 1 / Product Type: HMO [id number] Effective 12/11/08: BCBS will not retro referral [...] insurance must be obtained and registered in [facility] or their referral can not be processed. Who is calling to request this referral? patient If the caller is not the patient, what is their name? N/A FIRST and LAST NAME of SPECIALIST PATIENT is seeing: [facility] What specialty is this? orthopedics DIAGNOSIS [...] this visit:Initial Visit Address of Specialist:[address] Phone # of Specialist: Fax #: (if applicable): Does patient have an appointment scheduled?: NO Date of appointment- (including a retro-request): needs ref first for MRI Is this appointment related to: Not MVA, WC or Surgery related documented in this encounter Plan of Treatment Not on file documented as of this encounter Visit Diagnoses Not on filedocumented in this encounter Care Teams Plumbing Engineer Relationship Specialty Start Date End Date Name, MD Les PCP - General 07/05/1997 02/18/15 Scarlett Trevino MD PCP - General Internal Medicine 02/19/15 08/05/21 Jesse Marrero [address] [place] [id number] PCP - General Internal Medicine 08/06/21 documented as of this encounter
== END 2024-08-07 09:59 | disposition home or self-care (01) ==
LOC: HO.PMC 09:12
PROVIDERS: PCP Nurse Practitioner Family; Visit Provider Registered Nurse Emergency
DX: M48.062 Spinal stenosis, lumbar region with neurogenic claudication (principal); M54.16 Radiculopathy, lumbar region; M47.812 Spondylosis without myelopathy or radiculopathy, cervical region
CPT/HCPCS: 99213

== ENCOUNTER 2024-09-23 07:30 | Outpatient (REF) | payer BC, SELFPAY ==
[2024-09-23 08:46] LABS: Alanine Aminotransferase 29 U/L (0-40); Albumin Level 4.6 g/dL (3.5-5.0); Alkaline Phosphatase 45 U/L (39-117); Anion Gap 11 (12-20); Aspartate Amino Transferase 30 U/L (5-37); Blood Urea Nitrogen 23 mg/dL (9-16); Calcium 9.5 mg/dL (8.4-10.2); Carbon Dioxide 28 mmol/L (22-29); Chloride 106 mmol/L (96-108); Cholesterol 169 mg/dL (<200); Estimated Glomerular Filt Rate > 60; HDL Cholesterol 82 mg/dL (>40); Potassium 4.0 mmol/L (3.3-5.1); Sodium 141 mmol/L (135-145); Total Protein 7.5 g/dL (6.5-8.0); Triglycerides 152 mg/dL (<150)
== END 2024-09-23 07:31 | disposition home or self-care (01) ==
LOC: HO.LAB 07:30
PROVIDERS: PCP Nurse Practitioner Family; Visit Provider Nurse Practitioner Family
DX: I10 Essential (primary) hypertension (principal)
CPT/HCPCS: 36415; 80053; 80061

== ENCOUNTER 2024-09-24 12:46 | Outpatient (AMB) | payer BC, SELFPAY ==
--- NOTE | 2024-09-24 12:48 | A.OFFPC_ITS ---
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 Required: No Accompanied by: Self / Same As Patient Allergies meperidine (From DEMEROL) Allergy (Unknown, Verified 09/24/24 13:11) VOMITING Pyeaoty-SUC-OiB Reductase Inhibitor Adverse Reaction (Intermediate, Verified 09/24/24 13:11) Muscle Pain SEASONAL ALLERGIES Allergy (Unknown, Uncoded 09/24/24 13:11) RUNNY NOSE/ITCHY EYES Medication List - Last Reconciled 09/24/24 by DIONNE Vicente- evolocumab (Repatha SureClick) 140 mg subcut Q2W losartan-hydrochlorothiazide 100-12.5 mg 1 tab PO DAILY 90 days Tobacco use date assessed: 09/24/24 Dental Screening Dental Screen Date: 09/24/24 Did you have a dental visit in the last 12 months?: Yes Did you have a dental problem in the last 6 months where you did not have access to dental care?: No Was dental information given to patient?: Patient has dentist HPI PE HPI Details History of Present Illness The patient is a 64-year-old male presenting for a physical examination. He denies any symptoms such as shortness of breath, abdominal pain, blood in stool, constipation, diarrhea, suicidal ideation, or homicidal ideation. His colonoscopy and PSA screenings are up to date, and he reports feeling well overall. Seeing hematology. He attends annual dermatology appointments for skin checks and has completed recent blood work, which appears satisfactory. The patient is currently on Repatha for cholesterol management, which is reported to be working well. Health Maintenance - Colonoscopy: Up to date - PSA: Up to date - Dermatology: Annual skin checks Social History Review of Systems - General: Denies any symptoms, reports feeling well overall - Respiratory: Denies dyspnea - Gastrointestinal: Denies abdominal nishi n, blood in stool, constipation, diarrhea - Psychiatric: Denies suicidal ideation, homicidal ideation - Genitourinary: Denies urinary symptoms Physical Exam General: Cooperative, healthy appearing, comfortable, no acute distress and well developed Orientation: Patient oriented x3 Limitations: No limitations Head: Normal to inspection Ears: Hearing grossly normal bilaterally Nose: Normal external nose present Face and sinus: Normal facial exam Eyes: Appearance normal, both eyes and all related structures Neck: Normal visual inspection and Yes full ROM Respiratory: Normal respiratory effort and able to speak in complete sentences. Clear to auscultation bilaterally Cardiovascular: Regular rate and rhythm. Normal S1 and S2 GI: Normal to inspection. Soft to palpation and nontender : Testicles without masses/lesions and no hernias appreciated Skin: No rashes or lesions noted, nunn Neuro: Patient oriented x3 Extremities: Normal to inspection Results - Labs: Blood work completed, results sa tisfactory Plan The patient will continue with his current regimen of Repatha for cholesterol management, as it is proving effective. He should maintain his routine health screenings, including colonoscopy and PSA tests, which are currently up to date. Annual dermatology visits for skin checks should be continued as part of his preventative care. [facility] Medical History Lumbar spinal stenosis HTN (hypertension) PVC (premature ventricular contraction) Arterial atherosclerosis Surgical History History of bladder surgery Hx of colonoscopy Social History Housing: House Patient Tobacco Use Status: Former Tobacco user Tobacco use type: Cigarette e-Cigarette/Vaping Use: Never Used Second Hand Smoke Exposure: No service: No Current occupational status: retired Cognitive needs: No Hearing needs: No Vision needs: No Questionnaire PHQ-9 Over the last 2 weeks, how often have you been bothered by any of the following problems? 1. Little interest or pleasure in doing things: not at all 2. Feeling down, depressed, or hopeless: not at all 3. Trouble falling or staying asleep, or sleeping too much: not at all 4. Feeling tired or having little energy: not at all 5. Poor appetite or overeating: not at all 6. Feeling bad about yourself - or that you are a failure or have let yourself or your family down: not at all 7. Trouble concentrating on things, such as reading the newspaper or watching television: not at all 8. Moving or speaking so slowly that other people could have noticed. Or the opposite - being so fidgety or restless that you have been moving around a lot more than usual: not at all 9. Thoughts that you would be better off or of hurting yourself in some way: not at all Total score: 0 Depression Screening Interpretation: Negative Depression Screening Done: Yes 37207 - PHQ-9 Billing: Yes Source: Developed by Drs. Henrik Catherine, Tami Davies, Vimal Conti and colleagues, with an educational denny from [employer]. Thrive Questionnaire Date Thrive assessed: 09/24/24 I am a: Patient What is your living situation today?: I have a steady place to live Within the past 12 months, did the food you bought not last and you didn't have the money to get more?: Never true Within the past 12 months, did you worry whether your food would run out before you got money to buy more?: Never true Do you have trouble paying for medicines?: No Do you have trouble getting transportation to medical appointments?: No Do you have trouble paying your heating and electricity bill?: No Do you have trouble taking care of your child, family member or friend?: No Do you have trouble with day-to-day activities such as bathing, preparing meals, shopping, managing finances, etc.?: No Are you currently unemployed and looking for a job?: No Are you interested in more education?: No Please select the resources that you would like help with: None Currently or been in a relationship where the following occur: No concerns reported THRIVE Score: 0 AUDIT C Alcohol Use Questionnaire (AUDIT-C) 1. How often do you have a drink containing alcohol?: 2-3 times a week 2. How many drinks containing alcohol do you have on a typical day when you are drinking?: 1 or 2 3. How often do you have six or more drinks on one occasion?: Never Total Score: 3 SALAS-7 AMB Questionnaire SALAS-7 Date SALAS - 7 assessed: 09/24/24 Feeling nervous, anxious, or on edge: 0 = Not at all Not being able to stop or control worryin = Not at all Worrying too much about different things: 0 = Not at all Trouble relaxin = Not at all Being so restless that it is hard to sit still: 0 = Not at all Becoming easily annoyed or irritable: 0 = Not at all Feeling afraid as if something awful might happen: 0 = Not at all Total SALAS-7 score (0-4 normal; 5-9 mild; 10-14 moderate; 15-21 severe): 0 Source: Developed by Drs. Henrik Catherine, Tami Davies, Vimal Conti and colleagues, with an educational denny from [employer]. SALAS-7 Assessment Billing SALAS-7 Assessment Tool: SALAS-7 Assessment 31031 Physical exam (Primary Care) Vital Signs: Last Vital Signs Temp 98.1 F 09/24/24 12:49 Pulse 94 09/24/24 12:49 Resp 16 09/24/24 12:49 BP 148/98 H 09/24/24 12:49 Pulse Ox 97 09/24/24 12:49 Oxygen Delivery Method Room Air 09/24/24 12:49 BMI result Body Mass Index 25.9 Tobacco/Smoking Status: Tobacco use Status Tobacco use date assessed 09/24/24 09/24/24 12:55 Patient Tobacco Use Status Former Tobacco user 09/24/24 12:55 Tobacco use type Cigarette 09/24/24 12:55 e-Cigarette/Vaping Use Never Used 09/24/24 12:55 PHQ-9: PHQ-9 Score PHQ-9: Total score 0 09/24/24 13:12 Depression Screening Interpretation: Negative Thrive Assessment: Date of Thrive Assessment Date Thrive assessed 09/24/24 09/24/24 12:55 Currently or been in a relationship where the following occur: No concerns reported Coding Level of Care Code Est Pt Prev Care 40-64y(47516) Diagnoses Physical exam Z00.00 Additional Codes SALAS-7 Assessment Billing - SALAS-7 Assessment Tool: SALAS-7 Assessment 25487 ([id number]) PHQ-9 - 88017 - PHQ-9 Billing: Yes ([id number]) Assessment & Plan Assessment & Plan (1) Physical exam: Code(s): Z00.00 - Encounter for general adult medical examination without abnormal findings Category: Medical Plan . Orders: Orders Comprehensive [place]. Panel Fast Today Z00.00 - Encounter for general adult medical examination without abnormal findings UA CC w/rflx Micro + Cult Today Z00.00 - Encounter for general adult medical examination without abnormal findings Lipid Panel Today Z00.00 - Encounter for general adult medical examination without abnormal findings Complete Blood Count Auto Diff Today Z00.00 - Encounter for general adult medical examination without abnormal findings TSH reflex Free T4 Today Z00.00 - Encounter for general adult medical examination without abnormal findings
[2024-09-24 12:49] VITALS: BP 148/98; PULSE 94; RESP 16; TEMP 36.7; O2SAT 97; BMI 25.9
[2024-09-24 13:28] VITALS: BP 130/88
== END 2024-09-24 13:31 | disposition home or self-care (01) ==
LOC: HO.HMCC 12:47
PROVIDERS: PCP Nurse Practitioner Family; Visit Provider Nurse Practitioner Family
DX: Z00.00 Encounter for general adult medical examination without abnormal findings (principal)

== ENCOUNTER → 2024-09-24 12:46 | Outpatient (BNVA) | payer BC, SELFPAY | PROVIDERS: PCP Nurse Practitioner Family; Visit Provider Nurse Practitioner Family | DX: Z00.00 Encounter for general adult medical examination without abnormal findings (principal); I10 Essential (primary) hypertension | CPT/HCPCS: 96127 ==

== ENCOUNTER 2025-01-16 07:55 | Outpatient (REF) | payer BC, SELFPAY ==
--- OUTSIDE RECORDS SUMMARY | 2019-02-24 15:30 | XMS_ITS | Encounter Summary ---
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 Role Phone Scarlett Trevino MD Primary Care Provider [phone] Encounter Details Date Type Department Care Team (Late st Contact Info) Description 02/24/2019 3:30 PM EST Hospital Encounter [facility] [address] [place] [id number] Neena Magana, TIRE DUSTER [address] [place] [id number] [email or web address] Social History Tobacco Use Types Packs/Day Years Used Date Smoking Tobacco: Never Smokeless Tobacco: Never Alcohol Use Standard Drinks/Week Comments Not Currently 0 (1 standard drink = 0.6 oz pur e alcohol) Education Answer Date Recorded Are you interested in more education? Not on nury e 07/08/2022 Are you concerned about learning? Not on file 07/08/2022 No 07/08/2022 No 07/08/2022 Digital Access Answer Date Recorded No 08/06/2022 No 08/06/2022 No 08/06/2022 Reliable internet access at home? Not on file 08/06/2022 Device with a working camera? Not on file Sex and Gender Information Value Date Recorded Sex Assigned at Not on file Legal Sex Male 3:00 PM EST Gender Identity Not on file Sexual Orientation Not on file documented as of this encounter Plan of Treatment Not on file documented as of this encounter Procedures Procedure Name Priority Date/Time Associated Diagnosis Comments XR CHEST PA AND LATERAL 2 VIEWS Urgent/patient waiting 02/24/2019 3:45 PM EST Cough documented in this encounter Results * XR CHEST PA AND LATERAL 2 VIEWS (02/24/2019 3:45 PM EST) Anatomical Region Laterality Modality Chest Radiographic Tori ging 02/24/2019 3:59 PM EST Impressions 02/24/2019 3:59 PM EST No acute chest pathology. POS - [facility] Narrative 02/24/2019 3:59 PM EST HISTORY: * Cough, new onset TECHNIQUE: AP and lateral radiographs of the chest obtained. COMPARISON: None. FINDINGS: The heart and mediastinum are normal sized. There is no focal lung consolidation or infiltrate. There is no pneumothorax. Procedure Note Rafita Davies MD - 02/24/2019 HISTORY: * Cough, new onset TECHNIQUE: AP and lateral radiographs of the chest obtained. COMPARISON: None. FINDINGS: The heart and mediastinum are normal sized. There is no focal lung consolidation or infiltrate. There is no pneumothorax. IMPRESSION: No acute chest pathology. 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 It is not the complete legal health record.[facility]
--- OUTSIDE RECORDS SUMMARY | 2025-01-16 08:01 | XMS_ITS | Clinical Summary ---
Author Organization [facility] Address [address] [place] [id number] Phone Care Team Providers Care Floor Installer Name Role Phone Scarlett Trevino MD Primary Care Provider [phone] Allergies Active Allergy Reactions Criticality Noted Date Comments Atorvastatin Calcium 10/08/2007 Muscle pain Meperidine Hcl Nausea And Vomiting 06/13/2006 Simvastatin 12/15/2014 Muscle cramps Medications albuterol 90 mcg/actuation inhaler Inhale 1 puff into the lungs. 9 Active fluticasone propionate (FLONASE) 50 mcg/actuation nasal spray TAKE 2 SPRAYS IN EACH NOSTRIL ONCE A DAY 6 Active predniSONE (DELTASONE) 10 MG tablet 0 Active sildenafiL (VIAGRA) 50 mg tablet Take by mouth. 0 Active triamcinolone acetonide (KENALOG) 40 mg/mL injection Inject 40 mg into the articular space. 0 Active Active Problems No known active problems Social History Tobacco Use Types Packs/Day Years [...] on file Sexual Orientation Not on file Last Filed Vital Signs Vital Sign Reading Time Taken Comments Blood Pressure 147/87 05/16/2019 10:49 AM EST Pulse 67 05/16/2019 10:49 AM EST Temperature 36.8 C (98.3 F) 05/16/2019 10:49 AM EST Respiratory Rate 18 05/16/2019 10:49 AM EST Oxygen Saturation 100% 05/16/2019 10:49 AM EST Inhaled Oxygen Concentration - - Weight 97.1 kg (214 lb) 02/24/2019 3:15 PM EST Height 193 cm (6' 4 ) 05/16/2019 10:49 AM EST Body Mass Index 26.05 02/24/2019 3:15 PM EST Plan of Treatment Health Maintenance Due Date Last Done Comments LIPID PANEL 1961 DEPRESSION SCREENING 1973 HEPATITIS C SCREENING 1979 HIV ONE-TIME SCREENING (18-6 5 YEARS) 1979 COLOGUARD 2006 COLONOSCOPY 2006 COLORECTAL CANCER SCREENING 2006 FIT TEST 2006 FOBT 2006 SIGMOIDOSCOPY 2006 VIRTUAL COLONOSCOPY 2006 PNEUMOCOCCAL VACCINES (50+ years) (1 of 1 - PCV) 2011 ZOSTER VACCINES (2 of 2) 02/28/2020 01/03/2020 INFLUENZA VACCINE (#1) 2024 0, 01/11/2019 COVID-19 VACCINE (2 - 2024-2 6 season) 2024 07/14/2020 Adult Td,Tdap Booster 07/13/2026 07/13/2016 , 04/03/2007 RSV VACCINE (1 - 1-dose 75+ series) 2036 SMOKING STATUS SCREENING (On ce After 26 Yrs) Completed 05/16/2019 HEPATITIS A VACCINES Aged Out No long er eligible based on patient's age to complete this topic HIB VACCINES Aged Out No longer eligi ble based on patient's age to complete this topic MENINGOCOCCAL VACCINES (ACWY) Aged Out No longer eligible based on patient's age to complete this topic MENINGOCOCCAL VACCINES (B) Aged Out N o longer eligible based on patient's age to complete this topic Medical Devices Not on file [facility] [place] [address] [place] [address] [place] [address] [place] [address] H[place] [facility] [address] [facility] [place] [facility] [place] Address: [address] [address] Care Teams Floor Installer Relationship Specialty Start Date End Date Scarlett Trevino MD [address] [place] [address] PCP - General Internal Medicine 02/24/19 Additional Source Comments The information contained in this document represents components of the legal health record. It is not the complete legal health record.[facility]
--- OUTSIDE RECORDS SUMMARY | 2025-01-16 08:01 | XMS_ITS ---
Author Name [facility] Organization Unknown Care Team Organization Name Specialty Phone Email Start Date End Da nehal [facility] 01/18/2022 10/30/2023
[2025-01-16 08:17] LABS: MANUAL DIFF FLAG NO
[2025-01-16 09:01] LABS: Hematocrit 42.0 % (42.0-52.0); Hemoglobin 13.6 g/dl (14.0-18.0); Imm Gran Abs Auto 0.00 X10*3/uL (0.00-0.03); Imm Gran Pct Auto 0.0 % (0.0-0.4); Lymphocytes Absolute Auto 1.5 X10*3/uL (1.2-4.9); Mean Corpuscular HGB Conc 32.4 g/dl (31.0-36.0); Mean Corpuscular Hemoglobin 31.2 pg (27.0-33.0); Mean Corpuscular Volume 96.3 fL (80.0-98.0); NRBC Abs Auto 0.000 X10*3/uL (0.0-0.012); NRBC Pct Auto 0.0 /100WBC (0.0-0.2); Platelet Count 166 X10*3/uL (160-400); Red Blood Count 4.36 X10*6/uL (4.60-5.80); White Blood Count 4.3 X10*3/uL (4.8-10.8)
[2025-01-16 09:38] LABS: Alanine Aminotransferase 32 U/L (0-40); Albumin Level 4.6 g/dL (3.5-5.0); Alkaline Phosphatase 51 U/L (39-117); Anion Gap 12 (12-20); Aspartate Amino Transferase 35 U/L (5-37); Blood Urea Nitrogen 17 mg/dL (9-16); Calcium 9.6 mg/dL (8.4-10.2); Carbon Dioxide 32 mmol/L (22-29); Chloride 103 mmol/L (96-108); Cholesterol 188 mg/dL (<200); Estimated Glomerular Filt Rate > 60; HDL Cholesterol 85 mg/dL (>40); Potassium 4.6 mmol/L (3.3-5.1); Sodium 142 mmol/L (135-145); Total Protein 7.6 g/dL (6.5-8.0); Triglycerides 69 mg/dL (<150)
[2025-01-16 10:18] LABS: Appearance Urine Clear; Glucose Urine UA Negative (Negative); PH 6.5 (5.0-9.0); Specific Gravity - Urine 1.020 (1.005-1.025)
== END 2025-01-16 07:56 | disposition home or self-care (01) ==
LOC: HO.LAB 07:55
PROVIDERS: PCP Nurse Practitioner Family; Visit Provider Nurse Practitioner Family
DX: Z00.00 Encounter for general adult medical examination without abnormal findings (principal); Z13.6 Encounter for screening for cardiovascular disorders; Z13.29 Encounter for screening for other suspected endocrine disorder
CPT/HCPCS: 36415; 80053; 80061; 81003; 84443; 85025

== ENCOUNTER 2025-02-27 06:21 | Outpatient (REF) | payer BC, SELFPAY ==
--- NOTE | ~2025-02-27 | FL_ITS ---
EXAMINATION: FLUOROSCOPY GUIDANCE FOR NEEDLE PLACEMENT CLINICAL INFORMATION: M48.061 - Spinal stenosis, lumbar region without neurogenic claudication COMPARISON: Previous fluoroscopy July 2024, MR of the lumbar spine March 2024 x-ray of the lumbar spine June 2018 TECHNIQUE: Fluoroscopy guidance provided for pain management procedure. FINDINGS: Images demonstrate needle placement and contrast injection over the lumbar spine. See procedure note for detailed findings. 4 fluoroscopic images. FLUOROSCOPY TIME: 38 seconds DOSE AREA PRODUCT: 891 mGy-cm2 FL/FL guidance in treatment room IMPRESSION: Fluoroscopy guidance for pain management procedure. Electronically signed by: Corin Rasheed MD 02/27/2025 03:31 PM DANIEL
== END 2025-02-27 06:22 | disposition home or self-care (01) ==
LOC: CF 06:21
PROVIDERS: Visit Provider Internal Medicine
DX: M48.061 Spinal stenosis, lumbar region without neurogenic claudication (principal); M54.16 Radiculopathy, lumbar region
CPT/HCPCS: 62323; J2003; J3301; Q9967

== ENCOUNTER 2025-02-27 09:40 | Outpatient (AMB) | payer BC, SELFPAY ==
[2025-02-27 09:44] VITALS: BP 128/80; PULSE 63; RESP 16; O2SAT 94
--- NOTE | 2025-02-27 09:44 | A.OFFVIS_ITS ---
Vital Signs 02/27/25 09:44 BP 128/80 Blood Pressure Location Lt brachial Position Sitting Respiration 16 Pulse 63 Pulse Source Pulse Oximeter Pulse Oximetry (%) 94 Oxygen Delivery Method Room Air Intake Visit Reasons: L3-L4 interlaminar GUIDO Cook Helper Fruit Required: No Allergies meperidine (From DEMEROL) Allergy (Unknown, Verified 02/27/25 09:45) VOMITING Mhrodlf-YSM-JbV Reductase Inhibitor Adverse Reaction (Intermediate, Verified 02/27/25 09:45) Muscle Pain SEASONAL ALLERGIES Allergy (Unknown, Uncoded 02/27/25 09:45) RUNNY NOSE/ITCHY EYES Medication List - Last Reconciled 02/27/25 by Alona Salazar LPN diclofenac sodium 1% 4 grams topical QID PRN evolocumab (Repatha SureClick) 140 mg subcut Q2W losartan-hydrochlorothiazide 100-12.5 mg 1 tab PO DAILY 90 days HPI HPI L3-L4 interlaminar GUIDO: Details: Patient presents for scheduled procedure. Denies any recent cough, cold, infection, fever or other significant changes in medical history since last office visit. [facility] Medical History Lumbar spinal stenosis HTN (hypertension) PVC (premature ventricular contraction) Arterial atherosclerosis Surgical History History of bladder surgery Hx of colonoscopy Social History Housing: House Patient Tobacco Use Status: Former Tobacco user Tobacco use type: Cigarette e-Cigarette/Vaping Use: Never Used Second Hand Smoke Exposure: No service: No Current occupational status: retired Cognitive needs: No Hearing needs: No Vision needs: No Physical Exam Vital Signs: Last Vital Signs Pulse 63 02/27/25 09:44 Resp 16 02/27/25 09:44 BP 128/80 02/27/25 09:44 Pulse Ox 94 02/27/25 09:44 Oxygen Delivery Method Room Air 02/27/25 09:44 Office Procedures AMB Joint Injection/Aspiration Joint Injection/Aspiration Details: Interlaminar epidural steroid injection, L3/4, Left parasaggital After obtaining written consent, pre-procedure blood pressure and heart rate were stable and recorded in the nursing record. The patient was placed in the prone position. The lumbar area was widely prepped with chloraprep and draped in sterile fashion. Fluoroscopic guidance was used to identify the desired interlaminar space and for needle placement. Subcutaneous 0.5% lidocaine was used to anesthetize the skin overlying the target. A 20-gauge Johnson needle was advanced to the epidural space using loss of resistance to contrast technique under fluoroscopic AP and contralateral oblique views. There was no evidence of heme or CSF and no paresthesias were elicited with needle placement. Confirmation of epidural needle placement was performed with 1cc of omnipaque 180. Next 3 ml 0.5% lidocaine mixed with 80 mg triamcinilone was administered epidurally with no pain elicited on injection. The needle tract tubing was then cleared with 1 ml of 0.5% lidocaine. The needle was removed, skin cleansed and a sterile bandage was applied. The patient tolerated the procedure well and no complications were encountered. Following the procedure the patient's vital signs were stable. The patient was discharged home in good condition with post-procedural instructions. Time Out: Immediately prior to the procedure, the following was verbally confirmed that there is a signed consent form and that the correct patient, planned procedure, site and side are consistent with documentation and that necessary equipment and/or blood products are available prior to the start of the case. Complications: none EBL: <2 cc Coding 32481 - Caudal/Lumbar Epidural/Interlaminar with fluoroscopy Procedure code (CPT) selection complete Assessment & Plan Assessment & Plan (1) Left lumbar radiculitis: Code(s): M54.16 - Radiculopathy, lumbar region Category: Medical Plan Patient is status post left parasagittal L3-4 interlaminar GUIDO. Patient tolerated procedure well and was discharged home in stable condition with discharge instructions. All questions were answered. We will follow-up via telephone or in clinic to assess response to therapy. A follow-up appointment was made during today's visit. Orders: Orders FL guidance in treatment room Today M48.061 - Spinal stenosis, lumbar region without neurogenic claudication Coding Level of Care Code Procedure Only Diagnoses Left lumbar radiculitis M54.16 CPT Codes Coding - Joint 11: 64605 - Caudal/Lumbar Epidural/Interlaminar with fluoroscopy ([id number])
== END 2025-02-27 10:52 | disposition home or self-care (01) ==
LOC: HO.PMCPRC 09:40
PROVIDERS: PCP Nurse Practitioner Family; Visit Provider Internal Medicine
DX: M54.16 Radiculopathy, lumbar region (principal)
CPT/HCPCS: 62323